=== PATIENT | female | born 1950 | race Caucasian/White ===

== ENCOUNTER 2017-01-09 07:22 | Inpatient (IN) | payer OTHER ==
[2017-01-09] VITALS (10 sets, daily range): BP systolic 143–220; BP diastolic 43–90
[~2017-01-09] VITALS: Ht 175.3 cm; Wt 104.4 kg
--- NOTE | ~2017-01-09 | PR ---
[place], [place] PROGRESS NOTE NAME: DESTINY MARADIAGA [facility] #: [id number] UNIT #: [id number] ROOM: [facility] DOCTOR: LADONNA MARIE,EFRAIN BIRTHDATE: [birth year] DOS: 01/11/2017 SUBJECTIVE: This patient is still intubated, but she is awake and sedation is off and she has responding appropriately and the plan is to extubate her today. She has not had any rhythm problem, blood pressure has been fine. OBJECTIVE: GENERAL: She is reasonably alert, moving her extremities. VITAL SIGNS: Pulse is 88 regular, blood pressure fine. NECK: JVP is normal. LUNGS: She has rhonchi and crackles in both lungs. EXTREMITIES: No edema of the lower extremities. IMPRESSION: The patient had respiratory failure precipitated by use of fentanyl atop of this patient has severe chronic obstructive pulmonary disease. She is turning around now and will be extubated. I do not see any clinical evidence of heart failure. I saw this patient on behalf of Dr. Enriquez. EFRAIN DOUGHERTY MD CM:PNTRANS [id number] EFRAIN DOUGHERTY MD 01/11/17 2304 interface
--- NOTE | ~2017-01-09 | PR ---
[place], [place] PROGRESS NOTE NAME: DESTINY MARADIAGA UNIT #: [id number] ROOM: 422 DOCTOR: ROGER JEROME MD BIRTHDATE: [birth year] DOS: 01/13/2017 PULMONARY PROGRESS NOTE SUBJECTIVE: She has been currently treated in the Telemetry Floor for this patient and transferred from the Intensive Care Unit. She has not been noted with any chest pain or any acute hemodynamic instability. The patient has been using the BiPAP at nighttime and intermittently during the day at times. She denies symptoms of chest pain or any abdominal pain. OBJECTIVE: VITAL SIGNS: Shows normal temperature, respiratory rate 20, heart rate 65, blood pressure 120/50. The pulse oxygen saturation on 3.5 L nasal cannula was 100% saturation. HEENT: Examination shows head was atraumatic. Eyes nonicterus. NECK: Supple. CARDIOVASCULAR SYSTEM: S1, S2 audible. LUNGS: Without any wheeze or crackles at this time. ABDOMEN: Soft, nontender and obese. EXTREMITIES: Shows chronic obesity. LABORATORY DATA: The patient's CMP this morning, glucose 245, BUN and creatinine were normal. CO2 of 37. CBC this morning for this patient was noted as normal. Chest x-ray done this morning was reviewed as well for this patient shows no acute pulmonary infiltration as well. IMPRESSION: 1. The patient with progressive resolution of acute hypercapnic and hypoxic respiratory failure, status post liberation from the mechanical ventilator as well. 2. Acute methicillin-susceptible Staphylococcus aureus pneumonia of the patient resolving clinically and radiologically. 3. Overall severe debility as well. 4. Metabolic alkalosis of the patient which has been resolving gradually. 5. Small left pleural fluid improving as well. 6. Past history of nicotine abuse. 7. Uncontrolled diabetes mellitus. PLAN OF TREATMENT: Continue the current plan of management of the patient, diuretics, bronchodilators, oxygen supplementation and the antibiotics. Continue use of the BiPAP as well. Usual care. All other supportive therapy, plan of management and treatments. [place], [place] PROGRESS NOTE NAME: DESTINY MARADIAGA UNIT #: [id number] ROOM: 422 DOCTOR: ROGER JEROME MD BIRTHDATE: [birth year] ROGER WILSON MD CM:PNISABEL [id number] ROGER SEGAL MD 01/16/17 0048 interface
--- NOTE | ~2017-01-09 | PR ---
[place], [place] PROGRESS NOTE NAME: DESTINY MARADIAGA [facility] #: [id number] UNIT #: [id number] ROOM: 422 DOCTOR: KATIE SEGAL MD,ROGER BIRTHDATE: [birth year] DOS: 01/12/2017 SUBJECTIVE: She has been successfully liberated from mechanical ventilator and has been ordered the BiPAP. She has been using the BiPAP after the liberation of mechanical ventilation and noted doing well with that. She has been noted awake and alert started on the oral liquid diet, which has been advanced to diabetic diet per Dr. Mary Ann Gilman this morning. She has been noted with mild cough without any sputum expectoration. Shortness of breath is improving. The mental status is noted as normal. OBJECTIVE: VITAL SIGNS: The patient showed a low-grade fever rectal noted yesterday 99.8 degrees Fahrenheit and later the patient was noted afebrile, respiratory rate of 14-18, heart rate of 76-58, blood pressure 170/70, patient noted to be at 145/55. The pulse oxygen saturation of the patient recorded as 97% on 4 liters nasal cannula with a BiPAP 97% saturation. HEENT: Chronic obesity. NECK: Supple. CARDIOVASCULAR: S1, S2 audible. LUNGS: The patient was noted without any wheezing or crackles at the present time. Breath sounds noted mild to moderately decreased bilaterally. ABDOMEN: Soft, nontender. EXTREMITIES: Shows chronic obesity. LABORATORY DATA: Culture of the endotracheal aspirate noted as light growth of Staph aureus. CBC of the patient was noted essentially normal today. CMP this morning was noted as glucose of 134, potassium 3.4. Total protein of 5.6, albumin 2.2. IMPRESSION: 1. The patient with status post liberation from mechanical ventilator for acute on chronic. The patient has acute hypercapnic and hypoxic respiratory failure. 2. Resolving chronic respiratory failure. 3. Acute exacerbation of chronic obstructive pulmonary disease, resolving. 4. Staphylococcus aureus pneumonia for the patient, noted methicillin-sensitive Staphylococcus aureus. 5. Bilateral small pleural effusions. 6. History of past nicotine dependence. 7. Metabolic alkalosis hypercarbia. 8. Uncontrolled diabetes mellitus. PLAN OF TREATMENT: The patient will be continued diabetic diet. Management of the uncontrolled hypertension has been already done by Dr. Mary Ann Gilman. Discontinuation of Levaquin and Zosyn and continue the patient's IV vancomycin or other alternative will be for the patient to give the Rocephin or other medications. Other supportive therapy, plan, and management to be continued. Supportive plan and management and other therapies. Usual care. ____. Physical therapy and occupation therapy would be beneficial. Continue the BiPAP of patient intermittently in the daytime and continue at nighttime. Diagnosis of sleep apnea disorder was suspected. [place], [place] PROGRESS NOTE NAME: [id number] UNIT #: [id number] ROOM: [facility] DOCTOR: ROGER JEROME MD BIRTHDATE: [birth year] ROGER WILSON MD CM:PNTRANS [phone] ROGER SEGAL MD 01/13/17 0929 interface
--- NOTE | ~2017-01-09 | CON ---
[place], [place] REPORT OF CONSULTATION NAME: DESTINY MARADIAGA [facility] #: [id number] UNIT #: [id number] ROOM: 422 DOCTOR: BREANNA HAM DPM BIRTHDATE: [birth year] DOS: 01/12/2017 SUBJECTIVE: The patient is a 66-year-old female. CHIEF COMPLAINT: Elongated painful thickened nails of both feet. PAST MEDICAL HISTORY: History of acute CHF, COPD, oxygen dependent with chronic respiratory failure, type 2 diabetes insulin-dependent, nicotine abuse, benign hypertension, generalized anxiety disorder, gastroesophageal reflux disease. SOCIAL HISTORY: History of smoking. PHYSICAL EXAMINATION: EXTREMITIES: Lower extremity examination: Diminished pedal pulses, both DP and PT bilateral foot. Decreased hair growth, nail thickening pigmentary discoloration. Decreased epicritic sensations, mild edema bilateral. Decreased skin temperature bilateral. Crumbly thickened yellow dystrophic nails 1 through 5 bilateral, subungual debris and mycotic odor bilateral foot. ASSESSMENT: Onychomycosis diabetes with peripheral vascular disease, peripheral neuropathy. PLAN: Evaluation and management. Debrided nails 1 through 5 bilateral. Thank you for the kind consultation. BREANNA HAM DPM CM:CONSTR:REPORT OF CONSULTATION 1207 01/12/178 interface
--- NOTE | ~2017-01-09 | PR ---
[place], [place] PROGRESS NOTE NAME: DESTINY MARADIAGA [facility] #: [id number] UNIT #: [id number] ROOM: [facility] DOCTOR: JT GUEVARA MD BIRTHDATE: [birth year] DOS: 01/12/2017 SUBJECTIVE: A 66-year-old apparently examined in the Intensive Care Unit. The patient with respiratory failure and severe hypertension. She is being extubated now. She is still coughing a lot and having shortness of breath. PHYSICAL EXAMINATION: VITAL SIGNS: Blood pressure is still elevated to be 170/50. She is in sinus rhythm. HEENT: Unremarkable. NECK: Supple, no JVD. LUNGS: Diminished air entry. HEART: Sounds are regular. ABDOMEN: Obese. NEUROLOGIC: Stable. LABORATORY DATA: Hemoglobin 12.4, hematocrit 38.1, potassium is 3.4, creatinine is 0.5. Chest x-ray done yesterday, improved aeration of the left base, endotracheal tube was removed. IMPRESSION: The patient with morbid obesity, respiratory failure, hypertension, persistent. RECOMMENDATION: Labetalol added to the current regimen. The patient has persistent hypertension, consideration should be given for a stress test, we will do it as an outpatient or at a later date when she is more stable respiratory braga and we will follow up. JT GUEVARA MD CM:PNTRANS 4 6 JT GUEVARA MD 01/12/17926 interface
--- NOTE | ~2017-01-09 | PR ---
[place], [place] PROGRESS NOTE NAME[id number] UNIT #: [id number] ROOM: [facility] DOCTOR: JR BRANDT MD BIRTHDATE: [birth year] DOS: 01/11/2017 The patient was extubated earlier. She states that she is not doing well on the BiPAP. She does try to communicate. PHYSICAL EXAMINATION: VITAL SIGNS: Blood pressure is 196/64, pulse of 98, respirations 18, temperature 99. LUNGS: Diminished breath sounds, very poor air entry. HEART: Regular. ABDOMEN: Obese. EXTREMITIES: Without any edema. LABORATORY DATA: Blood gas pO2 was 90 this morning. Sputum cultures shows light gram-positive cocci, no identification yet. Chest x-ray shows improved aeration. Blood culture shows no bacterial growth, and urine culture shows no bacterial growth. ASSESSMENT AND PLAN: 1. End-stage COPD with chronic respiratory failure with acute hypercapnic respiratory failure following intake of narcotics in the Emergency Room. The patient is extubated and is doing fairly well. 2. Mild congestive heart failure, possibly systolic. We will need to do a stress test when the patient is more stable. 3. Benign hypertension, controlled. 4. Type 2 diabetes mellitus, controlled, 192 this morning. JR BRANDT MD CM:PNTRANS 1430 6 JR BRANDT MD 01/12/17 0117 interface
--- NOTE | ~2017-01-09 | PR ---
[place], [place] PROGRESS NOTE NAME: DESTINY MARADIAGA UNIT #: [id number] ROOM: 422 DOCTOR: JR BRANDT MD BIRTHDATE: [birth year] DOS: 01/13/2017 SUBJECTIVE: The patient states that she feels good and is not having any new complaints. Her cough is still persistent, but is able to bring up some sputum. OBJECTIVE: VITAL SIGNS: Pressure is 120/50, pulse is 65, respirations 20, temperature 98.2. LUNGS: Diminished breath sounds, few scattered rhonchi and wheezes heard. HEART: Regular. ABDOMEN: Obese. EXTREMITIES: No edema. LABORATORY DATA: This morning, the Vieira catheter has been discontinued. Chest x-ray shows mild cardiomegaly. Labs this morning shows glucose of 245, BUN 9, creatinine 0.54, sodium 140, potassium 3.6, chloride 100, bicarbonate 37, calcium 7.8. WBC count is 7.2, hemoglobin 13.0. ASSESSMENT AND PLAN: 1. Acute exacerbation of chronic obstructive pulmonary disease, improving. 2. Acute hypercapnic respiratory failure, was on a ventilator, now off doing well. 3. Adult failure to thrive. The patient is getting physical therapy. Therapist feels that the patient can be discharged to home with home PT/OT. Social Service will be consulted for discharge planning. 4. Staph aureus of the sputum on vancomycin, which can be switched to p.o. Bactrim upon discharge. 5. Hypokalemia. Supplementation was given and is corrected. 6. Type 2 diabetes mellitus. Blood sugars are slightly on the high side, possible further adjustments in medications will be made. 7. Acute systolic CHF that is resolved. The Lasix has been made p.o. She will need to have a stress test done as an outpatient. 8. Benign hypertension, poorly controlled. Pressure is much better after further adjustments in meds. [place], [place] PROGRESS NOTE NAME: DESTINY MARADIAGA UNIT #: [id number] ROOM: 422 DOCTOR: JR BRANDT MD BIRTHDATE: [birth year] JR BRANDT MD CM:PNTRANS 0917 0000 JR BRANDT MD 01/14/17 0000 interface
--- NOTE | ~2017-01-09 | PR ---
[place], [place] PROGRESS NOTE NAME: DESTINY MARADIAGA UNIT #: [id number] ROOM: 422 DOCTOR: ROGER JEROME MD BIRTHDATE: [birth year] DOS: 01/16/2017 SUBJECTIVE: She has been noted comfortable, stated that she had not been feeling well from the respiratory standpoint. She has been doing very well with current medical management. Denies symptoms of chest pain, abdominal pain. The coughing has been subsiding gradually and improving. OBJECTIVE: VITAL SIGNS: For the patient which has been recorded shows the blood pressure noted 160/66, temperature was rather noted as normal, respiratory rate 16, heart rate 68. Oxygen saturation recorded as 99% saturation on 3 L nasal cannula. HEENT: Showed no new change. NECK: Supple and obese. CARDIOVASCULAR: S1, S2 is audible. LUNGS: The patient was noted without any wheezing or crackles at the present time. Breaths are noted mild to moderate decreased bilaterally. ABDOMEN: Soft and obese. EXTREMITIES: Shows obesity. LABORATORY DATA: CBC this morning essentially noted grossly normal. BMP this morning, glucose 226, remaining BMP grossly normal. One view chest x-ray ordered by Dr. Mary Ann Gilman was noticed with small right pleural fluid with resolving pulmonary infiltration. There were no findings of a significant acute congestive heart failure. IMPRESSION: 1. The patient has been resolving acute hypercapnic and hypoxic respiratory failure progressively. 2. Improving acute pneumonia with Staphylococcus aureus, methicillin-sensitive Staphylococcus aureus. 3. Chronic obesity. 4. Severe debility. 5. Small pleural fluid, which is not requiring any intervention at the present time. PLAN OF TREATMENT: Continue physical therapy, occupational therapy, diuretic with Lasix 40 mg daily that will result in resolution of the congestive heart failure and pleural fluids. Continuation of the other treatment plan of management and care. Supportive therapy, plan and management. [facility] facility transfer for this patient prior to final discharge in the home setting would be recommended. The patient was agreeable for that. [place], [place] PROGRESS NOTE NAME: DESTINY MARADIAGA UNIT #: [id number] ROOM: 422 DOCTOR: ROGER JEROME MD BIRTHDATE: [birth year] ROGER WILSON MD CM:BRAD 1126 6 ROGER SEGAL MD 01/17/17226 interface
--- NOTE | ~2017-01-09 | WRIGHTHP ---
[place], [place] PATIENT HISTORY AND PHYSICAL EXAM NAME: DESTINY MARADIAGA [facility] #: [id number] UNIT #: [id number] ROOM: [facility] DOCTOR: JR BRANDT MD BIRTHDATE: [birth year] DOS: 01/09/2017 HISTORY OF PRESENT ILLNESS: This patient is [id number], not known to me. The patient comes in to the Emergency Room with complaints of chest pain and shortness of breath. The patient was seen in the ER, had x-rays and EKG, which did not show any abnormalities. Lab work was normal. She was admitted with diagnosis of chest pain. She was admitted to the fifth floor. While there, she became obtunded and unresponsive and rapid response was called. Narcan was given to reverse the situation and she was transferred to the ICU. En route we found out that the patient did receive 50 mcg fentanyl x2 while in the ER for what appears to be chest pain. The patient once transferred to the ICU, was found to be hypercapnic with acidosis and patient was promptly intubated. Right now the patient is on a ventilator and does not respond to call or noxious stimuli. She is heavily sedated. PAST MEDICAL HISTORY: Significant for; 1. Recent hospitalization in 08/2016 with acute CHF. Patient has LV dysfunction with an ejection fraction of 40%-45%, did not undergo a stress test or cardiac catheterization. 2. COPD oxygen dependent with chronic respiratory failure. 3. Type 2 diabetes mellitus, insulin-dependent. 4. Continued nicotine abuse. 5. Benign hypertension. 6. Generalized anxiety disorder. 7. Gastroesophageal reflux disease. MEDICATIONS: We do have a list of medicines, but we are not exactly sure whether these medicines are correct. The pharmacy has not been called yet. Her medications that reported by the family was Anoro Ellipta daily, Dulera 100 twice a day, fluticasone nasal spray, Vicodin 7.5 q. 8 p.r.n., alendronate 70 once weekly, amlodipine 5 daily, atorvastatin 20 daily, Bumex 1 mg b.i.d., calcium 500 twice a day, Coreg 25 mg twice a day, vitamin D 1000 units weekly, Plavix 75 daily, Flexeril 10 q. 8, Colace 100 daily, Lexapro 20 b.i.d., fenofibrate 160 daily, Zestril 40 daily, lorazepam 1 mg q. 6 p.r.n., multivitamin 1 tablet daily, Prilosec 20 daily, potassium 25 mEq daily, insulin 70/30 15 units twice a day. SOCIAL HISTORY: She is a smoker, I am not exactly sure how much she smokes, but her fingernails are heavily stained with nicotine. PHYSICAL EXAMINATION: GENERAL: The patient again is heavily sedated. VITAL SIGNS: Blood pressure is 179/84, pulse of 80, respirations 16, temperature 98.5. LUNGS: Diminished breath sounds, scattered wheezes and rhonchi. HEART: Bradycardic and a heart rate in the low 60s. ABDOMEN: Obese, soft. EXTREMITIES: Without any edema. Yeast infection noticed on the umbilical area as well as intertriginous areas of the groin. [place], [place] PATIENT HISTORY AND PHYSICAL EXAM NAME: DESTINY MARADIAGA UNIT #: [id number] ROOM: [facility] DOCTOR: JR BRANDT MD BIRTHDATE: [birth year] ASSESSMENT AND PLAN: 1. Acute hypercapnic respiratory failure. The patient is intubated. Sedation has been ordered. Consultation Dr. Subramanian will start her on DuoNeb. 2. CT of the chest shows pneumonia with pleural effusions. IV antibiotics have been ordered. Blood cultures will be sent. 3. Chronic obstructive pulmonary disease with chronic respiratory failure, oxygen dependent, on multiple inhalers, which will be restarted and the patient is more stable. 4. Benign hypertension. Restart lisinopril; hold off Coreg because of bradycardia. 5. LV dysfunction with acute systolic CHF. IV diuretics have been added. The patient will need further evaluation as regards to why the patient has LV dysfunction. She is a smoker and has underlying risk factors and may have coronary artery disease. JR BRANDT MD CM:HISPHYS:PATIENT HISTORY AND PHYSICAL EXAMINATION 1432 1450 JR BRANDT MD 01/09/17 9078 interface
--- NOTE | ~2017-01-09 | PR ---
[place], [place] PROGRESS NOTE NAME: DESTINY MARADIAGA [facility] #: [id number] UNIT #: [id number] ROOM: 422 DOCTOR: JR BRANDT MD BIRTHDATE: [birth year] DOS: 01/18/2017 SUBJECTIVE: The patient for some reason did not receive the Demerol that was ordered yesterday. OBJECTIVE: VITAL SIGNS: Graphic trend shows a pressure 130/50, pulse is 67, respirations 20, temperature 97.5. LUNGS: Diminished breath sounds, clear. HEART: Regular. ABDOMEN: Obese. EXTREMITIES: Without any edema. ASSESSMENT: 1. The patient with severe end-stage oxygen dependent chronic obstructive pulmonary disease, stable. 2. Staphylococcus aureus pneumonia for which the patient has received antibiotics. Chest x-ray last one was done on the 01/16/2017, which only showed trace pleural effusion. 3. Cardiomyopathy with a negative stress test without any reversible perfusion defects. 4. Failure to thrive, placement to [facility]. 5. Right suppurative otitis media on antibiotics seen by Dr. Conteh. 6. Hypercapnic respiratory failure, status post ventilator. PLAN: This patient is 66 years old. She came in with complaints of chest pain to the Emergency Room and shortness of breath. She was found to have acute exacerbation of COPD, was admitted. After admission, she had received 2 doses of fentanyl in the ER, she became increasingly somnolent and lethargic and unresponsive and was transferred to the ICU, was found to have hypercapnic respiratory failure, and she was intubated. After intubation, the patient was placed on IV antibiotics, steroids, breathing treatments, oxygen supplementation as well as consultation with Pulmonary was obtained with Dr. Subramanian. Blood cultures and urine cultures were performed. They have all come back negative. Chest x-ray showed some mild congestive heart failure. The patient was given diuretics and Cardiology consultation was obtained. Dr. Enriquez suggested to have a stress test when the patient become more stable. Echocardiogram showed some improvement in the ejection fraction compared to the last admission. Once her lung functions have improved, she was taken off the ventilator and transferred to [facility]. She did complain of right ear pain and was placed on Augmentin because of her right otitis media. Consultation with Dr. Conteh was obtained. Also, he agreed on the treatment plan. The patient continues to complain of pain in the ER, may require ostomies as an outpatient for her right ear infection with some minimal fluid behind the ear drum. A chest x-ray shows complete resolution of the congestive heart failure. is fairly within normal limits now, and she is back at her baseline, so the plan therefore is to discharge her to [facility]. DISCHARGE MEDICATIONS: Will be Augmentin 875 twice daily for 7 days. DuoNeb q.6 hours, Plavix 75 daily, atorvastatin 40 mg daily, carvedilol 25 mg twice a [place], [place] PROGRESS NOTE NAME: DESTINY MARADIAGA UNIT #: [id number] ROOM: 422 DOCTOR: JR BRANDT MD BIRTHDATE: [birth year] day, lisinopril 40 daily, [place] 7.5/325 q.6 hours p.r.n., Lexapro 10 daily, oyster calcium one capsule daily, potassium 10 daily, Lasix 40 daily, Colace 100 mg daily, Prilosec 20 mg daily, insulin 70/30 25 units b.i.d., vitamin D 1000 units daily, alendronate 70 once weekly, multivitamin one tablet daily and tapering dose of prednisone. Please make sure that the patient is seen by Dr. Conteh and Dr. Subramanian as an outpatient. JR BRANDT MD CM:BRAD 0910 1017 JR BRANDT MD 01/18/17 1017 interface
--- NOTE | ~2017-01-09 | ST ---
[place], [place] EXERCISE STRESS TEST REPORT NAME: DESTINY MARADIAGA [facility] #: [id number] UNIT #: [id number] ROOM: 422 DOCTOR: JR BRANDT MD BIRTHDATE: [birth year] DOS: 01/17/2017 LEXISCAN STRESS TEST REASON FOR TESTING: Evaluation of LV dysfunction and wall motion abnormalities. DESCRIPTION: After explaining the procedure and obtaining consent, the patient was subjected to 0.4 mg of Lexiscan. Resting heart rate was 66 with a blood pressure of 148/54. EKG showed sinus, nonspecific ST-T wave changes in the inferior leads. The patient did complain of some minimal shortness of breath during the infusion. No arrhythmias or ST-T wave changes were seen during the infusion. After the infusion was over, the patient was injected with Cardiolite and stress images were taken. ASSESSMENT AND PLAN: Lexiscan stress test without any ST-T wave changes or arrhythmias. Cardiolite images pending. JR BRANDT MD CM:STRESS:EXERCISE STRESS TEST REPORT [id number] JR BRANDT MD
--- NOTE | ~2017-01-09 | CON ---
[place], [place] REPORT OF CONSULTATION NAME: DESTINY MARADIAGA UNIT #: [id number] ROOM: [facility] DOCTOR: KATIE SEGAL MD,ROGER BIRTHDATE: [birth year] DOS: 01/10/2017 PULMONARY CRITICAL CARE EVALUATION AND MANAGEMENT CONSULTATION REQUESTED: For patient by Dr. Mary Ann Gilman. REASON FOR CONSULTATION: To assess the patient for acute progressive respiratory failure. HISTORY OF PRESENT ILLNESS: This is a 66 years old female who has been brought to the hospital on 01/09/2017 and subsequently admitted to the Intensive Care Unit. She has been reported symptoms of having shortness of breath, which has been progressive for the past couple of days and worsened significantly in the morning prior to admission to the hospital. Shortness of breath for this patient was also associated with symptoms of chest pain. The details were unknown with mild cough and back pain. The patient's daughter stated the patient was in the Emergency Room for the patient. The patient was feeling normal prior to that. The patient has been admitted to the hospital in the intensive care unit, developed progressive acute respiratory failure requiring intubation and mechanical ventilation, which was started yesterday successfully. The history had been obtained for patient essentially, review of documentation medical records for the patient by the current physician on this hospitalization and from the nurse's notes. REVIEW OF SYSTEMS: Could not be completed since the patient already intubated and noted on mechanical ventilation. PAST MEDICAL HISTORY: Noted for the patient is: 1. General anxiety disorder. 2. Centrilobular emphysema. 3. Type 2 diabetes mellitus. 4. Essential hypertension. 5. Gastroesophageal reflux. 6. Coronary artery disease. 7. Chronic hypoxic respiratory failure, use of oxygen. 8. History of nicotine dependence. 9. History of congestive heart failure with systolic dysfunction for the patient with ejection fraction 40-45%. PAST SURGICAL HISTORY: For this patient was noted as, 1. Sinus surgery. 2. Tubal ligation. 3. Left hip replacement. 4. Coronary artery bypass grafting. 5. Cardiac catheterization and coronary stents insertion. 6. Cholecystectomy. 7. Tubal ligation. SOCIAL HISTORY: The patient was living at home prior to admission to the hospital. She had been reported with history of tobacco use. The patient's [place], [place] REPORT OF CONSULTATION NAME: DESTINY MARADIAGA UNIT #: [id number] ROOM: [facility] DOCTOR: KATIE SEGAL MD,ROGER BIRTHDATE: [birth year] quantity or duration was unknown. FAMILY HISTORY: The patient's father with complication related to hypertension. Mother from complication related to heart problems with history of hypertension as well. MEDICATIONS: Current administered medications noted as use of lisinopril, Coreg, amlodipine, Plavix, IV Lasix 20 mg, clonidine patch for this patient 0.3 mg, DuoNeb, IV Zosyn, Levaquin, IV Versed and Diprivan. The Versed was given 5 mg q. 1 hour p.r.n. for additional sedation. DRUG ALLERGIES: NOTED ALLERGY TO THE MORPHINE SULFATE CAUSING HALLUCINATIONS. PHYSICAL EXAMINATION: GENERAL: A 66 years old female who has been currently intubated on mechanical ventilation, adequately sedated. VITAL SIGNS: Height of 5 feet 9 inches, weight of 237 pounds, BMI 35. The vital signs of the patient, which have been recorded shows a normal temperature noted. The respiratory 24-12, heart rate 68-73, blood pressure 153/40-115/55. A pulse oxygen saturation of the patient recorded on assist controlled mode of mechanical ventilation, tidal volume 650 mL, PEEP of 7.0, 50% oxygen saturation noted and 99% saturation. Previously on Venturi mask for the patient the saturation noted 88%. HEENT: The patient is orally intubated, orogastric tube has been inserted. NECK: Supple and obese. Head was atraumatic. Eyes nonicterus. CARDIOVASCULAR SYSTEM: S1, S2 audible. LUNGS: Noted moderate decreased breath sounds, scattered wheezing, occasional crackles. ABDOMEN: Soft, obese, bowel sounds present. EXTREMITIES: Shows no edema, clubbing or cyanosis. SKIN: Showed no lesions or rashes. MUSCULOSKELETAL SYMPTOMS: No deformities. SKIN: Visible does not show any lesions. LABORATORY DATA: CBC of the patient of 01/09/2017 for the patient was noted WBC count 9.9, hemoglobin 15, hematocrit 47.4, platelet count was normal. Lactic acid noted 0 of the patient yesterday on admission. PT/PTT for the patient was noted as normal 01/10/2016. The CMP of the patient on 01/09/2017, glucose 284, BUN 13, creatinine was normal, carbon dioxide 33. CK-MB, troponin first set was normal. Arterial blood gas pH of 7.16, pCO2 of 90.8, pO2 of 69.6 with the BiPAP. Arterial blood gases of the patient post-intubation on mechanical ventilation, 50% oxygen, pH of 7.24, pCO2 of 49.6, pO2 of 74.9. The CK-MB and troponin repeated again was normal this morning. CBC this morning remains normal. Arterial blood gas this morning on 50% oxygen, pH of 7.49, pCO2 of 42.7, pO2 of 67.1 on 50% oxygen. The BMP of the patient this morning, glucose 279, BUN and creatinine were normal, remaining electrolytes normal. Urine cultures shows no bacterial growth. CTA of the chest for the patient was done yesterday, ordered by Dr. Mary Ann Gilman, for the patient it was noted there was no evidence of pulmonary embolism, small bilateral pleural fluid noted greater on the right than the left side, partial loculation. The basilar area of [place], [place] REPORT OF CONSULTATION NAME: DESTINY MARADIAGA UNIT #: [id number] ROOM: [facility] DOCTOR: KATIE SEGAL MD,ROGER BIRTHDATE: [birth year] infiltration of the patient was noted/atelectasis as well. Nonspecific mild lymphadenopathy noted in the mediastinum as well. IMPRESSION: 1. The patient who has been currently noted with acute progressive hypercapnic and hypoxic respiratory failure. 2. History of chronic hypoxic respiratory failure as a result of acute exacerbation of chronic obstructive pulmonary disease. 3. Basilar area of atelectasis, less infiltration secondary to possibility of aspiration pneumonia. 4. Small pleural fluid for the patient most likely resulting from the acute bacterial pneumonia with superimposed congestive heart failure with systolic dysfunction of the patient would be considered as well. 5. Chronic obesity. 6. History of chronic nicotine dependence. 7. Metabolic alkalosis secondary to chronic hypercarbia. 8. Uncontrolled diabetes, most likely related to underlying acute illness as well. PLAN OF TREATMENT: The patient's ventilator bundle management has been initiated. The ____ arrangements for this patient has been ordered. The bronchodilators for the patient will be given for the patient every 4 hours. Endotracheal aspirate cultures as well. Nutritional support for the patient has been started. DVT prophylaxis of the patient will be continued. Pleural fluid will be monitored at this time. The fluid noted small at this time, would not require any thoracentesis immediately. Monitoring to be continued. DVT prophylaxis for the patient has been ordered. Supportive care, plan of management and usual treatments. Thanks for allowing me to participate in the care of this patient. Monitoring blood cultures as well. Total time pulmonary critical care evaluation and management for the patient today is 40 minutes. ROGER WILSON MD CM:CONSTR:REPORT OF CONSULTATION 1235 01/11/17 0709 interface
--- NOTE | ~2017-01-09 | CON ---
[place], [place] REPORT OF CONSULTATION NAME: DESTINY MARADIAGA [facility] [id number] UNIT #: [id number] ROOM: [facility] DOCTOR: EFRAIN DOUGHERTY MD BIRTHDATE: [birth year] DOS: 01/09/2017 HISTORY OF PRESENT ILLNESS: This is a 66-year-old -[place] woman with a history of coronary artery disease, 10 years ago she had a left heart catheterization which demonstrated 50% stenosis in the right coronary artery and EF at that time was 45% and an echocardiogram last year demonstrated an EF of 45%. She was admitted to the hospital because of chest pain and shortness of breath. In the Emergency Department, she had received 100 mg of fentanyl and she became unresponsive and hypoventilating. CO2 was rather high. She was given 3 doses of Narcan with some response, but she required endotracheal intubation and ventilator support. She is now sedated and remains on the ventilator. I do not have the details of chest pain. She had been admitted to the hospital about 4 months ago with acute heart failure. She has COPD that is quite significant, requiring oxygen at all times. Type 2 diabetes mellitus, essential hypertension and anxiety disorder and GERD. The patient now has blood pressure that has been difficult to control. She has been on some of her home medication, also is on clonidine patch. PHYSICAL EXAMINATION: VITAL SIGNS: Pulse is irregular at 80 beats per minute, blood pressure is 220/80, previous blood pressures have been much lower. There is no carotid bruit. NECK: JVP is normal. HEART: Auscultation reveals no murmurs or rubs. EXTREMITIES: She has no edema of lower extremities. Pedal pulses are little difficult to palpate. LUNGS: Sound fairly clear. She has a few rhonchi on the left side. LABORATORY DATA: Troponin I level is 0.032, which is normal. Hemoglobin 15 grams, glucose was high, BUN 13, creatinine 0.83. ECGs have shown normal sinus rhythm with a normal pattern, unchanged from previous ECG. IMPRESSION: This patient had chest pain, details of which are not clear, but she has ruled out for acute myocardial infarction. Once she is extubated and is ambulated, I think it may be prudent to perform a Lexiscan Cardiolite study. She has respiratory failure, which was worsened by use of narcotic. She is on the ventilator now and hemodynamically is stable. I thank you on behalf of Dr. Guevara for this consult. [place], [place] REPORT OF CONSULTATION NAME: DESTINY MARADIAGA UNIT #: [id number] ROOM: [facility] DOCTOR: EFRAIN DOUGHERTY MD BIRTHDATE: [birth year] EFRAIN DOUGHERTY MD CM:CONSTR:REPORT OF CONSULTATION 22 01/10/17 0719 interface JT GUEVARA MD and JR BRANDT MD
--- NOTE | ~2017-01-09 | PR ---
[place], [place] PROGRESS NOTE NAME: [facility]ST[facility]ADIAGA [facility] [id number] UNIT #: [id number] ROOM: 422 DOCTOR: JT GUEVARA MD BIRTHDATE: [birth year] DOS: 01/17/2017 SUBJECTIVE: 24-hour events noted. Discussed with the nursing staff. Hemodynamically stable. OBJECTIVE: VITAL SIGNS: Blood pressure is 150/70, heart rate is about 72. NECK: Supple, no JVD. LUNGS: Diminished breath sounds. The patient is negative 2 liters. ABDOMEN: Soft, nontender. NEUROLOGIC: Neurologically much more improved. Dr. Subramanian also following the patient. LABORATORY DATA: Reviewed. Hemoglobin 12.9 and hematocrit 40.3. Electrolytes are normal. Creatinine is normal. I do not think the patient is in heart failure at this point. IMPRESSION: Pneumonia with Staphylococcus aureus, failure to thrive, acute systolic congestive heart failure with left ventricular dysfunction. Benign hypertension, controlled. Chronic obstructive pulmonary disease exacerbation. PLAN: Continue the present care. We will review the stress test that will be done by Dr. Mary Ann Gilman today and we will follow up. JT GUEVARA MD CM:PNTRANS [id number] [id number] JT GUEVARA MD 01/17/17 1355 interface
--- NOTE | ~2017-01-09 | PR ---
[place], [place] PROGRESS NOTE NAME: [facility]A [facility] [id number] UNIT #: [id number] ROOM: 422 DOCTOR: JR BRANDT MD BIRTHDATE: [birth year] DOS: 01/14/2017 SUBJECTIVE: The patient is doing fine without any complaints other than some minimal diarrhea. OBJECTIVE: VITAL SIGNS: Graphic trend shows a pressure of 164/72, pulse is 64, respirations 21, temperature 97.2. LUNGS: Diminished breath sounds. No wheezes heard. HEART: Regular. ABDOMEN: Soft. EXTREMITIES: Without any edema. ASSESSMENT AND PLAN: 1. Acute hypercapnic respiratory failure, status post intubation, now extubated. 2. Staphylococcus aureus methicillin sensitive on the sputum, on IV antibiotics. 3. Heavy nicotine abuse. The patient is advised against it. 4. Adult failure to thrive. PT feels that the patient can be discharged to home with therapy, does not need SNF placement. 5. Benign hypertension, much better controlled. Plan is to discharge her to home tomorrow. 6. Acute systolic congestive heart failure, which is also resolved on medications, will need a stress as an outpatient. JR BRANDT MD CM:PNTRANS 1426 JR BRANDT MD 01/14/17 1426 interface
--- NOTE | ~2017-01-09 | PR ---
[place], [place] PROGRESS NOTE NAME: DESTINY MARADIAGA [facility] #: [id number] UNIT #: [id number] ROOM: 422 DOCTOR: JR BRANDT MD BIRTHDATE: [birth year] DOS: 01/17/2017 SUBJECTIVE: The patient continues to complain of right ear pain. OBJECTIVE: GENERAL: She is awake and alert and oriented. VITAL SIGNS: Blood pressure is 170/54, pulse of 74, respirations 20, temperature 98.0. LUNGS: Diminished breath sounds. HEART: Regular. ABDOMEN: Obese, soft, nontender. EXTREMITIES: Without any edema. ASSESSMENT AND PLAN: 1. Acute ____ hypercapnic respiratory failure, which is resolved. The patient is only getting breathing treatments as needed, so we will change that ____ straight order. 2. Panacinar emphysema, end-stage oxygen dependent, without any exacerbations right now. 3. Right suppurative otitis media. We will get ____ consult since the patient is still having complaints and requested a pain medication just for one time, so one dose of Vicodin will be given today. 4. Benign hypertension, further adjustments in medication to be made. 5. Adult failure to thrive, to go to [facility] tomorrow. JR BRANDT MD CM:PNTRANS [id number] JR BRANDT MD 01/17/17 2322 interface
--- NOTE | ~2017-01-09 | PR ---
[place], [place] PROGRESS NOTE NAME: [id number] UNIT #: [id number] ROOM: 422 DOCTOR: ROGER JEROME MD BIRTHDATE: [birth year] DOS: 01/17/2017 PULMONARY PROGRESS NOTE SUBJECTIVE: The patient seen and examined on 01/17/2017. She has been noted with continued reduction and improvement in the respiratory complaints with the patient's current medical treatment. She has been undergoing cardiac stress testing for this patient with the Lexiscan. OBJECTIVE: VITAL SIGNS: Showed normal temperature, respiratory rate 20, heart rate 74, blood pressure 150/74-151/52. Pulse oxygen saturation recorded on 3 liters nasal cannula of the patient was noted as 98% saturation. HEENT: Moderate obesity. NECK: Supple. CARDIOVASCULAR SYSTEM: S1, S2 audible. LUNGS: Without any wheeze or crackles. ABDOMEN: Soft, nontender. LABORATORY DATA: CBC this morning was noted normal. BMP this morning noted glucose 284, carbon dioxide 39. IMPRESSION: 1. The patient has been noted with continued gradual reduction and improvement in the respiratory status. The patient was noted with acute on chronic hypercapnic hypoxic respiratory failure as well as improving pneumonia. 2. The patient with acute exacerbation of chronic obstructive pulmonary disease as well. 3. Suspected obstructive sleep apnea disorder. PLAN OF TREATMENT: No changes in plan of management, continuation of the bronchodilators, oxygen supplementation and further cardiac workup as in progress. Usual care. Supportive therapy, plan of management and other treatments. [place], [place] PROGRESS NOTE NAME: DESTINY MARADIAGA [facility]: [id number] UNIT #: [id number] ROOM: 422 DOCTOR: ROGER JEROME MD BIRTHDATE: [birth year] ROGER WILSON MD CM:BRAD [id number] ROGER SEGAL MD 01/17/17 1877 interface
--- NOTE | ~2017-01-09 | PR ---
[place], [place] PROGRESS NOTE NAME: [id number] UNIT #: [id number] ROOM: 422 DOCTOR: JR BRANDT MD BIRTHDATE: [birth year] DOS: 01/15/2017 SUBJECTIVE: The patient is doing fine without any complaints other than continued complaints of ear pain that started during the night, the nursing staff did call saying she was having a lot of ear pain and headache. One dose of Toradol was given that seems to help with her headaches. She denies having any chest pains or palpitations, does not have any fever or chills. PHYSICAL EXAMINATION: VITAL SIGNS: Graphic trend shows a pressure of 179/62, pulse of 76, respirations 18, temperature 98.0. LUNGS: Diminished breath sounds. No wheezes heard today. HEART: Regular. ABDOMEN: Obese. EXTREMITIES: Without any edema. EARS: Right ear shows definite evidence of suppurative otitis media. ASSESSMENT AND PLAN: 1. Earache with acute suppurative or right otitis media for which she will be started on Augmentin. 2. Pneumonia with Staphylococcus aureus, on IV vancomycin. 3. Hypoxic hypercapnic respiratory failure, off the ventilator for Adult failure to thrive. I did suggest that she go to rehab. She is considering it. 4. Major depression, single episode. The patient has been on Lexapro in the past. It is not on the list of medications, we will restart it at 10 mg. JR BRANDT MD CM:PNTRANS 1020 24 JR BRANDT MD 01/15/171923 interface
--- NOTE | ~2017-01-09 | CON ---
[place], [place] REPORT OF CONSULTATION NAME: DESTINY MARADIAGA UNIT #: [id number] ROOM: 422 DOCTOR: KRISTIE PHILLIPS MD BIRTHDATE: [birth year] DOS: 01/17/2017 ADMITTING PHYSICIAN: Conrad Layne DO. REASON FOR CONSULTATION: Right ear pain. HISTORY OF PRESENT ILLNESS: The patient is a 66-year-old female who presented to the Emergency Department on January 09, 2017, with complaints of shortness of breath. She had some chest discomfort and mild coughing. She has a history of COPD and congestive heart failure. The patient has developed right-sided ear pain and was started on Augmentin. ENT was consulted because of the ear condition. PAST MEDICAL HISTORY: Acute on chronic respiratory failure, history of congestive heart failure, COPD, depression, type 2 diabetes mellitus, essential hypertension, GERD, history of [place], oxygen dependent, tobacco abuse, anxiety. PAST SURGICAL HISTORY: Cholecystectomy, tubal ligation, sinus surgery, left hip repair and coronary artery bypass surgery. CURRENT MEDICATIONS: Albuterol, Demerol, vancomycin, Lexiscan, Lexapro, Lasix, Augmentin, Protonix, insulin, potassium, Zestril, labetalol, Norvasc, clonidine, nystatin and albuterol. ALLERGIES: MORPHINE. PHYSICAL EXAMINATION: GENERAL: The patient was examined at the bedside. She is awake, alert and oriented. VITAL SIGNS: Temperature 98 oral, pulse 68, respiratory rate 20, blood pressure 170/50. HEENT: Examination of the ears shows evidence of retraction of the right TM with otitis media. There is mild retraction of the left TM. Nasal exam shows patient is receiving oxygen via nasal prong. No intranasal mucopurulence or polyps. The oral cavity and oropharynx is unremarkable. NECK: Supple. IMPRESSION: Right otitis media. RECOMMENDATION: Continue treatment with Augmentin. The patient has agreed to follow up after discharge with ENT for reassessment. Thank you for this consultation. [place], [place] REPORT OF CONSULTATION NAME: DESTINY MARADIAGA UNIT #: [id number] ROOM: 422 DOCTOR: KRISTIE PHILLIPS MD BIRTHDATE: [birth year] KRISTIE PHILLIPS MD CM:CONSTR:REPORT OF CONSULTATION 1308 01/17/17 1339 interface
--- NOTE | ~2017-01-09 | PR ---
[place], [place] PROGRESS NOTE NAME: DESTINY MARADIAGA [facility] #: [id number] UNIT #: [id number] ROOM: [facility] DOCTOR: JT GUEVARA MD BIRTHDATE: [birth year] DOS: 01/10/2017 SUBJECTIVE: Twenty four hour events noted. The patient examined in the Intensive Care Unit. The patient was seen by Dr. Gtz yesterday for me as a consultation. Patient continues to be intubated. She is still on the long doses of Ativan. The ejection fraction was 45%. Chest x-ray showed mild pleural effusion and a CTA also showed no evidence of pulmonary embolism. The patient continues to be in sinus rhythm. Troponin is normal. EKG shows normal sinus rhythm with normal pattern, which is unchanged from before. PHYSICAL EXAMINATION: VITAL SIGNS: Blood pressure today is 140/80. She is in sinus rhythm. NECK: Supple, elevated JVD. LUNGS: Diminished breath sounds. HEART: Sounds are regular. ABDOMEN: Obese, soft, nontender. NEUROLOGIC: Moving the extremities, but she is sedated. REVIEW OF SYSTEMS: Unobtainable because of current critical situation. Fluid balance is negative at 660. LABORATORY DATA: Shows hemoglobin 13.7, hematocrit 37.6. Electrolytes are normal. Creatinine is normal. Troponins have been negative. IMPRESSION: Acute respiratory failure, chronic obstructive pulmonary disease, oxygen-dependent. Mild left ventricular dysfunction, history of nicotine abuse, hypertension, anxiety disorder, gastroesophageal reflux disease. PLAN: Continue the present medications, which includes Plavix, Coreg, fenofibrate, Zestril, respiratory toilet and probable extubation if feasible as per the Pulmonary and we will follow up. JT GUEVARA MD CM:PNTRANS [id number] [id number] JT GUEVARA MD 01/11/17 0138 interface
--- NOTE | ~2017-01-09 | PR ---
[place], [place] PROGRESS NOTE NAME: DESTINY MARADIAGA [facility] #: [id number] UNIT #: [id number] ROOM: 422 DOCTOR: KATIE SEGAL MD,ROGER BIRTHDATE: [birth year] DOS: 01/19/2017 PULMONARY PROGRESS NOTE SUBJECTIVE: She was still waiting for authorization and transfer to the intermediate facility. She has been showing gradual reduction and improvement in the respiratory complaints. Denies symptoms of chest pain. Denies any acute abdominal pain. Physical therapy of the patient was continued. OBJECTIVE: VITAL SIGNS: For the patient which has been recorded showed the temperature of the patient noted as normal. The respiratory rate of the patient recorded as 20, heart rate of 62, blood pressure 130/52. The pulse oxygen saturation on nasal cannula supplementation for the patient was maintained as oxygen saturation of 98% on 3 L nasal cannula. HEENT: Examination shows head was atraumatic. Examination shows no acute abnormality. Chronic obesity was noted. CARDIOVASCULAR: S1, S2 is audible. LUNGS: The patient was noted without any wheezing or crackles at the present time. ABDOMEN: Soft, nontender. LABORATORY DATA: Vancomycin trough level noted at 14.0. IMPRESSION: The patient with progressive resolution was noted at this time for the acute respiratory failure, acute pneumonia, improving debility progressively. PLAN OF TREATMENT: No changes in the plan and management at this time otherwise will be necessary. Continue other supportive therapy, plan of management and treatment. Usual care. ROGER WILSON MD CM:PNTRANS 1206 [id number] ROGER SEGAL MD 01/20/17 0514 interface
--- NOTE | ~2017-01-09 | PR ---
[place], [place] PROGRESS NOTE NAME: [id number] UNIT #: [id number] ROOM: 422 DOCTOR: EFRAIN DOUGHERTY MD BIRTHDATE: [birth year] DOS: 01/18/2017 SUBJECTIVE: This patient remains reasonably short of breath. She has some wheezing and little cough. She has not had any chest pain or palpitations. She is eating fine and has ambulated only in the room so far. Her mood seems to be fairly decent. PHYSICAL EXAMINATION: GENERAL: This is a patient who is morbidly obese, alert, oriented. She has oxygen on and still is mildly tachypneic. VITAL SIGNS: Pulse is regular at 66, blood pressure 152/50. Systolic blood pressure has been between 150 and 170. NECK: JVP is normal. AJR is negative. CARDIOVASCULAR: Auscultation reveals regular heart rate. No murmurs, no edema at all in the lower extremities. RESPIRATORY SYSTEM: She is tachypneic. Her percussion note is normal and auscultation reveals modestly diminished breath sounds with adventitious sounds in both lungs. IMPRESSION: 1. Hypertension. This probably needs better controlled if the blood pressure stays high as mentioned above. 2. Chronic obstructive pulmonary disease is being addressed. There is no evidence of cardiac decompensation. No new recommendations are offered at this time. EFRAIN DOUGHERTY MD CM:PNTRANS [id number] EFRAIN DOUGHERTY MD 01/19/17 0508 interface
--- NOTE | ~2017-01-09 | PROC NOTE ---
[place], [place] PROCEDURE NOTE NAME: DESTINY MARADIAGA UNIT #: [id number] ROOM: [facility]- DOCTOR: PATRICIO RODRIGUEZ CRNA BIRTHDATE: [birth year] DOS: 01/09/2017 PROCEDURE PERFORMED: Intubation for respiratory failure. The patient was treated in the ER earlier today for chest pain, acute congestive heart failure. She was sent to the floor where she was subject of a rapid response team. She was transferred to the ICU after receiving Narcan and placed on BiPAP. On the BiPAP, blood gases pH 7.162, CO2 98.8, pO2 69.6, bicarb 35.6, base excess of 1.7. The patient in respiratory failure. The patient on the BiPAP had a SaO2 of 97%. However, on my arrival, she was severely obtunded and unresponsive to painful stimuli. The patient initially attempted intubation without sedation, but she did become responsive, sedated with propofol 100 mg, succinylcholine 100 mg. The patient intubated without difficulty with a blade and using an 8.0 mm ET tube with good visualization. Positive end tidal CO2. Positive bilateral breath sounds. O2 sat going on 99% on 100% O2, placed on ventilator settings per her physician. Total time 15 minutes. PATRICIO RODRIGUEZ CRNA CM:PROCNOTE:PROCEDURE NOTE [id number] PATRICIO RODRIGUEZ CRNA
--- NOTE | ~2017-01-09 | PR ---
[place], [place] PROGRESS NOTE NAME: DESTINY MARADIAGA [facility] #: [id number] UNIT #: [id number] ROOM: 422 DOCTOR: EFRAIN DOUGHERTY MD BIRTHDATE: [birth year] DOS: 01/16/2017 SUBJECTIVE: This patient is now moving a little bit in the room. She still has oxygen on. She has some cough with very little expectoration. No chest pain or palpitations. She just feels tired. She clearly feels much better than when she was moved out of the ICU. PHYSICAL EXAMINATION: VITAL SIGNS: Temperature is normal. Pulse is 72 and regular, blood pressure 187/62. Blood pressure has been persistently elevated. NECK: JVP is normal. CHEST: She has reduced breath sounds with some adventitious sounds bilaterally. EXTREMITIES: No edema in her lower extremities. LABORATORY DATA: BUN is , creatinine 0.63. Hemoglobin 12.7 mg/dL. IMPRESSION: Acute respiratory failure due to medications upon admission. She has recovered from that and now chronic obstructive pulmonary disease being addressed by Dr. Reese. There is no evidence of heart failure at this time. I saw this patient on behalf of . . EFRAIN DOUGHERTY MD CM:PNTRANS [phone] EFRAIN DOUGHERTY MD 01/17/17 0641 interface
--- NOTE | ~2017-01-09 | PR ---
[place], [place] PROGRESS NOTE NAME: DESTINY MARADIAGA [facility] #: [id number] UNIT #: [id number] ROOM: 422 DOCTOR: KATIE SEGAL MD,ROGER BIRTHDATE: [birth year] DOS: 01/18/2017 SUBJECTIVE: She had the completion of Cardiolite stress test yesterday. The respiratory braga, the patient has been improving gradually. She was still awaiting the authorization for transfer to the prison facility. From the pulmonary standpoint, she has been doing very well. OBJECTIVE: VITAL SIGNS: Normal temperature, respiratory rate of 20, heart rate 67, blood pressure 130/58. The pulse oxygen saturation 3 liters nasal cannula 98% saturation recorded. HEENT: Shows no acute change. NECK: Supple. CARDIOVASCULAR SYSTEM: S1, S2 audible. LUNGS: Noted without any wheezing or crackles at the present time. ABDOMEN: Soft, nontender. LABORATORY DATA: Myocardial perfusion image of the patient and the stress test, the patient that was done yesterday was described as a normal study. IMPRESSION: 1. The patient with progressive resolution improvement in the acute chronic hypercapnic and hypoxic respiratory failure for this patient with resolving acute pneumonia and debility. 2. Chronic obesity. 3. Suspected obstructive sleep apnea disorder. PLAN OF TREATMENT: No change in plan of management. Transfer the patient to prison facility once the bed becomes available. Continue other supportive therapy, plan of management, other care. Usual treatment, all other supportive plan of management. ROGER WILSON MD CM:PNISABEL [phone] ROGER SEGAL MD 01/18/17 1207 interface
--- NOTE | ~2017-01-09 | PR ---
[place], [place] PROGRESS NOTE [id number] UN[facility] #: [id number] ROOM: 422 DOCTOR: KATIE SEGAL MD,ROGER BIRTHDATE: [birth year] DOS: 01/15/2017 PULMONARY PROGRESS SUBJECTIVE: She has been noted comfortable at this time. The patient reported reduction in symptoms of shortness of breath. She has been using the BiPAP at times. Denies symptoms of chest pain, undergoing physical therapy as well. The headache for the patient that was described yesterday seemed to be better. OBJECTIVE: VITAL SIGNS: Showed normal temperature, respiratory rate 18, heart rate 75, blood pressure 160/76. A pulse oxygen saturation of the patient noted on 3 liters nasal canula 98% saturation. HEENT: Examination shows head was atraumatic. Eyes nonicterus. NECK: Supple. CARDIOVASCULAR SYSTEM: S1, S2 audible. LUNGS: Noted without any wheezing or crackles at the present time. ABDOMEN: Soft, nontender. LABORATORY DATA: There were no labs done today. IMPRESSION: 1. The patient with progressive and gradual resolution of kderj-bq-tljszrh hypercapnic hypoxic respiratory failure or debility, exacerbation of chronic obstructive pulmonary disease, acute pneumonia and others progressively. Past history of nicotine abuse as well. 2. Suspected obstructive sleep apnea disorder. PLAN OF TREATMENT: No changes in the plan of management. Continue the patient on current therapy as in progress. Other usual plan of management as in progress as well. Usual care. Supportive therapy, plan of care and treatments. ROGER WILSON MD CM:PNTRANS [phone] ROGER SEGAL MD 01/16/17 1008 interface
--- NOTE | ~2017-01-09 | PR ---
[place], [place] PROGRESS NOTE NAME: DESTINY MARADIAGA [facility] #: [id number] UNIT #: [id number] ROOM: [facility] DOCTOR: KATIE SEGAL MD,ROGER BIRTHDATE: [birth year] DOS: 01/11/2017 SUBJECTIVE: The patient was seen and examined on 01/11/2017, remains on mechanical ventilator, sedated at this time with intravenous Diprivan. With the sedation vacation, she has been noted appropriate improvement in the mental status per nursing staff. The patient does follow vocal commands. At the time of the assessment, the patient has been noted still significantly sedated. She has not been noted any hemodynamic instability. The oxygen supplementation continued for the patient which has been gradually decreased based on the improvement in the oxygenation. She has been also started on the feeding, which has been very well tolerated with the use of Glucerna. OBJECTIVE: VITAL SIGNS: For the patient, which has been recorded showed the temperature of the patient recorded as normal. The respiratory rate 12, heart rate 76, blood pressure . Intake for the patient was recorded 1500 mL, output 1100 mL. Pulse oxygen saturation on 40% oxygen assist control mode 94% saturation. HEENT: Examination shows head was atraumatic. Eyes nonicterus. NECK: Supple. It was obese. CARDIOVASCULAR SYSTEM: S1, S2 audible. LUNGS: The patient was noted without any wheezing or crackles. Breaths are noted essentially moderately decreased bilaterally. ABDOMEN: Soft, obese, nontender. EXTREMITIES: Shows obesity for the patient with mild edema. LABORATORY DATA: The patient's CBC today: WBC count 8.2, hemoglobin 13.1, hematocrit 40.0, platelet count of 190,000. CMP of this morning, glucose 171, BUN and creatinine were normal, potassium 3.0. Albumin 2.4. Arterial blood gas on assist controlled mode 40% oxygen, pH of 7.50, pCO2 of 42, pO2 of 63.7 on the patient's tidal volume 550 mL. The blood culture of the patient, which were taken on the 12/09/2016 shows no bacterial growth, which was done from the venous access. The blood culture, which were taken yesterday for the patient was pending. The Gram stain of the endotracheal aspirate of the patient yesterday showed many white blood cells, few epithelial cells, few Gram-positive cocci in clusters and light growth of Gram-positive cocci were noted at this time with final culture results remains pending. The chest x-ray, 1 view, which was done for the patient this morning shows endotracheal tube was noted in appropriate position. Reduction of previous noted basilar infiltration, small pleural fluid was noted. Endotracheal tube were noted in appropriate position. PICC line of the patient noted in place in the right arm as well. IMPRESSION: 1. The patient who has been currently noted with acute hypercapnic and hypoxic respiratory failure. 2. History of chronic hypoxic respiratory failure. 3. The patient with acute exacerbation of chronic obstructive pulmonary disease. 4. Basilar area of atelectasis with Gram-positive cocci isolation, possibility of methicillin-resistant Staphylococcus aureus pneumonia would be considered. 5. Bilateral pleural fluid secondary to fluid overload or underlying infection [place], [place] PROGRESS NOTE NAME: DESTINY MARADIAGA UNIT #: [id number] ROOM: [facility] DOCTOR: ROGER JEROME MD BIRTHDATE: [birth year] of the patient has been considered, which has been noticed stable. 6. Chronic obesity. 7. History of nicotine dependence. 8. Metabolic alkalosis secondary to hypercarbia, stable. 9. Uncontrolled diabetes mellitus as well. PLAN OF TREATMENT: Continue ventilator bundle management and nutrition support. Discontinue sedation of the patient completely this morning. Once the patient noted fully awake and alert, she will be started on CPAP of 7, pressure support of 10 for a couple of hours if tolerated. Possible consideration of liberation from mechanical ventilator. Monitoring the respiratory alkalosis of the patient as well. Supportive care. The IV vancomycin has been added for the patient to the treatment until the patient's culture will be finally known. If the patient does feel the assessment for the liberation of mechanical ventilation today, consider fiberoptic bronchoscopy tomorrow as well. In the meantime, continue DVT prophylaxis. GI prophylaxis. Other supportive plan of management. Reduction of the antibiotic spectrum of the patient based on the final culture results availability. Other supportive therapy, plan and management and usual care. Total time pulmonary critical evaluation and management was 40 minutes. ROGER WILSON MD CM:BRAD [phone] ROGER ESGAL MD 01/11/172120 interface
--- NOTE | ~2017-01-09 | PR ---
[place], [place] PROGRESS NOTE [id number] UNIT #: [id number] ROOM: 422 DOCTOR: KATIE SEGAL MD,ROGER BIRTHDATE: [birth year] DOS: 01/14/2017 PULMONARY FOLLOWUP NOTE SUBJECTIVE: She has been complaining of some headache. In general, the patient has been noted reduction in symptoms of shortness of breath, coughing. Denies symptoms of chest pain or any abdominal pain. OBJECTIVE: VITAL SIGNS: For the patient, which have been recorded showed the temperature noted normal, respiratory rate , heart rate 70, blood pressure 190/68. Pulse oxygen saturation recorded on 3 liters nasal canula 99% saturation. HEENT: Examination showed no acute change. Chronic obesity. NECK: Supple. CARDIOVASCULAR SYSTEM: S1, S2 audible. LUNGS: Without any wheezing or crackles at the present time. ABDOMEN: Soft, nontender. IMPRESSION: 1. Resolving acute pneumonia with Staph aureus with improving acute hypercapnic and hypoxic respiratory failure. 2. Overall severe debility. PLAN OF TREATMENT: Continue physical therapy, occupational therapy, antibiotics, bronchodilators, use of the BiPAP for this patient, DVT prophylaxis and others. ROGER WILSON MD CM:PNTRANS [phone] ROGER SEGAL MD 01/14/171925 interface
--- NOTE | ~2017-01-09 | PR ---
[place], [place] PROGRESS NOTE NAME: DESTINY MARADIAGA UNIT #: [id number] ROOM: [facility] DOCTOR: JR BRANDT MD BIRTHDATE: [birth year] DOS: 01/10/2017 SUBJECTIVE: The patient is waking up with cold this morning. She complains of some discomfort across her chest. OBJECTIVE: VITAL SIGNS: Graphic trend shows a pressure of 142/46, pulse of 77, respirations 12, temperature 98. LUNGS: Diminished breath sounds. No wheezes, rales or rhonchi heard. HEART: Regular. ABDOMEN: Obese, soft. EXTREMITIES: Without any edema. LABORATORY DATA: Blood pressure was 212/78. Blood gas this morning, ABG 7.4, pCO2 of 42.7, pO2 of 67.1, bicarbonate 32.5, oxygen saturation 95.9, WBC count is 10.3, hemoglobin 13.7. BMP: Glucose 279, BUN 22, creatinine 0.85. Electrolytes are normal. ASSESSMENT AND PLAN: 1. Acute hypercapnic respiratory failure, status post intubation, doing well on the ventilator. 2. Chronic obstructive pulmonary disease, panacinar emphysema with acute exacerbation. The patient is getting breathing treatments. There is a very minimal bronchospasm, so I did not place her on any IV steroids. 3. CT of the chest showing bilateral small pneumonia with effusion, bilateral pleural effusion with atelectasis, possible underlying pneumonia, could be gram-negative organisms. Sputum cultures are pending. Dr. Subramanian is following. The patient is on multiple IV antibiotics. 4. Benign hypertension, poorly controlled. Restart some of her antihypertensives. 5. Acute diastolic congestive heart failure. Discussed with Dr. Enriquez this morning. The patient will need to have a stress test when more stable. 6. Type 2 diabetes mellitus, insulin-dependent. Restart coverage scale and feeding. [place], [place] PROGRESS NOTE NAME: DESTINY MARADIAGA UNIT #: [id number] ROOM: [facility] DOCTOR: JR BRANDT MD BIRTHDATE: [birth year] JR BRANDT MD CM:PNTRANS [id number] JR BRANDT MD 01/10/17 1150 interface
--- NOTE | ~2017-01-09 | PR ---
[place], [place] PROGRESS NOTE [id number] #: [id number] ROOM: 422 DOCTOR: JR BRANDT MD BIRTHDATE: [birth year] DOS: 01/16/2017 SUBJECTIVE: The patient is still having earache, but she feels better overall. OBJECTIVE: VITAL SIGNS: Graphic trend shows a pressure of 160/66, pulse is 68, respirations 16, temperature 98.0. LUNGS: Diminished breath sounds. HEART: Regular. ABDOMEN: Soft. EXTREMITIES: Without any edema. HEENT: Ear exam yesterday showed the absence of light reflex with cloudy tympanic membrane. ASSESSMENT AND PLAN: 1. Acute suppurative right otitis media, on Augmentin. 2. Pneumonia with Staph aureus, methicillin sensitive on IV vancomycin. 3. Failure to thrive, to go to [facility]. Social service will be consulted. 4. Acute systolic congestive heart failure with left ventricular dysfunction and wall motion abnormality, for a stress test tomorrow. 5. Benign hypertension, controlled. 6. Chronic obstructive pulmonary disease central lobar emphysema with exacerbation and respiratory failure which is much better. JR BRANDT MD CM:PNTRANS 0810 JR BRANDT MD 01/17/17 0022 interface
[~2017-01-09 07:22] MED LIST: ALENDRONATE SOD70 M1 PO; AMBIEN10 MG PO; AMLODIPINE BESYL5 MG PO; ANORO ELLIPTA1 POW IH; ASPIRIN325 MG PO; ATIVAN0.5 MG PO; ATIVAN2 MG PO; AUGMENTIN 875 M1 TAB PO; BACTRIM DS 8001 TA1 PO; BENADRYL ALLERG25 M1 PO; BUMETANIDE1 MG PO; CELEXA20 MG PO; CIPRODEX 0.3%-7.5 ML OT; CLINDAMYCIN HC300 MG PO; COLACE100 MG PO; COREG25 MG PO; COREG6.25 MG PO; DULE1ARO1 INH; FENOFIBRATE160 MG PO; FLEXERIL10 MG PO; FLUTICASON0.05 MG/AC NAS; INSULATARD H100 U/ML SC; K-Lyte/Cl25 MEQ PO; LANTUS100 U/ML SC; LEXAPRO20 MG PO; LIPITOR20 MG PO; Lovenox40 MG/0.4 PO; METANEX; MOBIC7.5 MG PO; MOM30 ML PO; MOTRIN800 MG PO; MULTIPLE VITAMI1 CAP PO; NEURONTIN300 MG PO; NICODERM21 MG/24 H; NITROGLYCERIN0.4 MG SL; NOVOLIN 70/30 710 ML SC; NOVOLIN 70100 UNIT/1 SQ; OSCAL,OYSTER S500 MG PO; OYSTER CALCIUM500 M1 PO; PERCOCET 325 MG1 TA3 PO; PLAVIX75 M1 PO; PLAVIX75 MG PO; PRAVACHOL40 MG PO; PREDNISONE10 MG PO; PRILOSEC20 M1 PO; PRINIVIL20 M1 PO; TORADOL IM; VICO75300 PO; VICODIN 5/500 505 MG PO; VICODIN 500 MG-1 TAB PO; VITAMIN D1000 IU PO; Zestril,Prinivi40 MG PO; [UNRECOGNIZED DRUG - OTHER] PO
[2017-01-09 08:11] LABS: BASO % 0.4 % (0.0-1.0); EOS # 0.1 10*3/uL (0.0-0.4); EOS % 1.3 % (1.0-4.0); HEMATOCRIT 47.4 % (37.0-47.0); IG # 0.1 10*3/uL (0.0-0.1); LYMPH # 1.3 10*3/uL (1.3-4.4); LYMPH % 13.4 % (27.0-41.0); MEAN CELL VOLUME 98.8 fl (81.0-99.0); MEAN CORPUSCULAR HGB 31.3 pg (27.0-31.0); MEAN CORPUSCULAR HGB CONC 31.6 g/dl (33.0-37.0); MEAN PLATELET VOLUME 9.7 fl (9.6-12.3); MONO # 0.6 10*3/uL (0.1-1.0); MONO % 5.8 % (3.0-9.0); NEUT # 7.7 10*3/uL (2.3-7.9); NEUT % 78.1 % (47.0-73.0); PLATELET COUNT AUTOMATED 183 10*3/uL (130-400); RED CELL DISTRI WIDTH 12.7 % (0-14.5); WHITE BLOOD COUNT 9.9 10*3/uL (4.8-10.8)
[2017-01-09 08:19] LABS: INTERNATIONAL NORM RATIO 0.9 (2.0-3.5)
[2017-01-09 08:31] LABS: ALBUMIN 2.8 gm/dl (3.1-4.5); ALKALINE PHOSPHATASE 112 U/L (45-117); BILIRUBIN, TOTAL 0.2 mg/dl (0.2-1.0); BUN 13 mg/dl (7-24); C-REACTIVE PROTEIN 1.16 MG/DL (0-0.3); CARBON DIOXIDE 33 mmol/L (21-32); CHLORIDE 102 mmol/L (98-107); CKMB 2.9 ng/ml (0.5-3.6); CPK 56 U/L (26-192); EST GLOM FILT AFRICAN AMERICAN > 60 ml/min; GLUCOSE 284 mg/dL (65-99); MAGNESIUM 2.1 mg/dL (1.5-2.1); POTASSIUM 4.5 mmol/L (3.5-5.1); SGOT/AST 19 IU/L (3-35); SGPT/ALT 18 U/L (12-78); SODIUM 141 mmol/L (136-145); TROPONIN I 0.018 ng/ml (<0.045)
[2017-01-09 11:53] LABS: ABG BASE EXCESS 1.7 mmol/L (-2.0-2.0); ABG HCO3 35.6 mmol/l (22-26); ARTERIAL BLOOD GAS PO2 69.6 mmHg (80-90)
[2017-01-09 12:00] LABS: ARTERIAL BLOOD GAS PH 7.162 (7.35-7.45)
[2017-01-09 14:31] LABS: CKMB 2.7 ng/ml (0.5-3.6); TROPONIN I 0.032 ng/ml (<0.045)
[2017-01-09 16:05] LABS: ABG BASE EXCESS 6.5 mmol/L (-2.0-2.0); ABG CO2 CONTENT 33.9 mmol/L (23-27); ABG HCO3 32.3 mmol/l (22-26); ABG TEMPERATURE 96.8 F (98.0-99.0); ARTERIAL BLOOD GAS PH 7.424 (7.35-7.45); ARTERIAL BLOOD GAS PO2 74.9 mmHg (80-90)
[2017-01-09] MEDS ORDERED: NORCO 7.5-3251 EACH PO (16:07)
[2017-01-09] MEDS ORDERED: LIPITOR40 MG PO (16:09)
[2017-01-09] MEDS ORDERED: OYSTER SHELL C1 EAC2 PO (16:10)
[2017-01-09] MEDS ORDERED: COREG25 MG PO (16:11)
[2017-01-09] MEDS ORDERED: VITAMIN D1000 IU PO (16:12)
[2017-01-09] MEDS ORDERED: PRINIVIL20 M1 PO (16:16)
[2017-01-09 17:24] LABS: BILIRUBIN NEGATIVE (NEGATIVE); BLOOD 3+ (NEGATIVE); CLARITY SL CLOUDY (CLEAR); COLOR YELLOW (YELLOW); GLUCOSE 2+ (NEGATIVE); KETONE 1+ (NEGATIVE); LEUKO ESTERASE NEGATIVE (NEGATIVE); NITRITE NEGATIVE (NEGATIVE); PH 6.5 (5.0-9.0); PROTEIN 2+ (NEGATIVE); UROBILINOGEN 0.2 E.U./dl (0.2-1.0)
[2017-01-09 17:31] LABS: BACTERIA TRACE; EPITHELIAL CELLS 0-2; RBC TNTC rbc/hpf (0-2); URINE REFLEX COMMENT YES (NO); WBC 0-2 wbc/hpf (0-5)
[2017-01-09 22:59] LABS: CKMB 1.7 ng/ml (0.5-3.6); TROPONIN I 0.022 ng/ml (<0.045)
[2017-01-10] VITALS (11 sets, daily range): BP systolic 115–210; BP diastolic 40–86
[2017-01-10 06:18] LABS: BASO % 0.1 % (0.0-1.0); HEMOGLOBIN 13.7 g/dl (12.0-16.0); LYMPH # 1.1 10*3/uL (1.3-4.4); LYMPH % 10.2 % (27.0-41.0); MEAN CORPUSCULAR HGB 33.9 pg (27.0-31.0); MEAN CORPUSCULAR HGB CONC 36.4 g/dl (33.0-37.0); MEAN PLATELET VOLUME 11.2 fl (9.6-12.3); MONO # 0.9 10*3/uL (0.1-1.0); MONO % 8.9 % (3.0-9.0); NEUT # 8.3 10*3/uL (2.3-7.9); NEUT % 80.4 % (47.0-73.0); NUCLEATED RED BLOOD CELL 0.1 10*3/uL (0.0-0.0); NUCLEATED RED BLOOD CELL 0.5 % (0.0-0.0); PLATELET COUNT AUTOMATED 199 10*3/uL (130-400); RED BLOOD COUNT 4.04 10*6/uL (4.10-5.10); RED CELL DISTRI WIDTH 13.1 % (0-14.5); WHITE BLOOD COUNT 10.3 10*3/uL (4.8-10.8)
[2017-01-10 06:25] LABS: HEMATOCRIT 37.6 % (37.0-47.0); MEAN CELL VOLUME 93.1 fl (81.0-99.0)
[2017-01-10 06:35] LABS: ABG BASE EXCESS 8.4 mmol/L (-2.0-2.0); ABG CO2 CONTENT 33.9 mmol/L (23-27); ABG HCO3 32.5 mmol/l (22-26); ARTERIAL BLOOD GAS PH 7.493 (7.35-7.45); ARTERIAL BLOOD GAS PO2 67.1 mmHg (80-90)
[2017-01-10 07:00] LABS: BUN 22 mg/dl (7-24); CARBON DIOXIDE 30 mmol/L (21-32); CHLORIDE 100 mmol/L (98-107); EST GLOM FILT AFRICAN AMERICAN > 60 ml/min; GLUCOSE 279 mg/dL (65-99); POTASSIUM 4.1 mmol/L (3.5-5.1); SODIUM 140 mmol/L (136-145)
[2017-01-11] VITALS (7 sets, daily range): BP systolic 140–210; BP diastolic 50–75
[2017-01-11 05:17] LABS: ALBUMIN 2.4 gm/dl (3.1-4.5); ALKALINE PHOSPHATASE 86 U/L (45-117); BILIRUBIN, TOTAL 0.2 mg/dl (0.2-1.0); BUN 24 mg/dl (7-24); CARBON DIOXIDE 38 mmol/L (21-32); CHLORIDE 99 mmol/L (98-107); EST GLOM FILT AFRICAN AMERICAN > 60 ml/min; GLUCOSE 171 mg/dL (65-99); SGOT/AST 10 IU/L (3-35); SGPT/ALT 12 U/L (12-78); SODIUM 143 mmol/L (136-145); TOTAL PROTEIN 5.7 gm/dL (6.4-8.2)
[2017-01-11 05:57] LABS: BASO % 0.2 % (0.0-1.0); EOS # 0.1 10*3/uL (0.0-0.4); EOS % 1.5 % (1.0-4.0); HEMATOCRIT 40.8 % (37.0-47.0); HEMOGLOBIN 13.1 g/dl (12.0-16.0); LYMPH % 24.9 % (27.0-41.0); MEAN CORPUSCULAR HGB CONC 32.1 g/dl (33.0-37.0); MEAN PLATELET VOLUME 10.1 fl (9.6-12.3); MONO # 0.6 10*3/uL (0.1-1.0); MONO % 7.6 % (3.0-9.0); NEUT # 5.3 10*3/uL (2.3-7.9); NEUT % 65.3 % (47.0-73.0); PLATELET COUNT AUTOMATED 190 10*3/uL (130-400); RED BLOOD COUNT 4.23 10*6/uL (4.10-5.10); RED CELL DISTRI WIDTH 13.1 % (0-14.5); WHITE BLOOD COUNT 8.2 10*3/uL (4.8-10.8)
[2017-01-11 06:02] LABS: MEAN CELL VOLUME 96.5 fl (81.0-99.0)
[2017-01-11 06:08] LABS: ABG BASE EXCESS 8.9 mmol/L (-2.0-2.0); ABG CO2 CONTENT 34.6 mmol/L (23-27); ABG HCO3 33.2 mmol/l (22-26); ARTERIAL BLOOD GAS PH 7.501 (7.35-7.45); ARTERIAL BLOOD GAS PO2 67.3 mmHg (80-90)
[2017-01-11 11:41] LABS: ABG BASE EXCESS 11.1 mmol/L (-2.0-2.0); ABG CO2 CONTENT 37.4 mmol/L (23-27); ARTERIAL BLOOD GAS PH 7.492 (7.35-7.45); ARTERIAL BLOOD GAS PO2 42.2 mmHg (80-90)
[2017-01-11 12:02] LABS: ABG BASE EXCESS 10.8 mmol/L (-2.0-2.0); ABG CO2 CONTENT 36.2 mmol/L (23-27); ABG HCO3 34.9 mmol/l (22-26); ARTERIAL BLOOD GAS PH 7.514 (7.35-7.45); ARTERIAL BLOOD GAS PO2 90.4 mmHg (80-90)
[2017-01-12] VITALS (8 sets, daily range): BP systolic 160–195; BP diastolic 52–70
[2017-01-12 05:40] LABS: ALBUMIN 2.2 gm/dl (3.1-4.5); BILIRUBIN, TOTAL 0.5 mg/dl (0.2-1.0); BUN 15 mg/dl (7-24); CARBON DIOXIDE 36 mmol/L (21-32); CHLORIDE 104 mmol/L (98-107); EST GLOM FILT AFRICAN AMERICAN > 60 ml/min; GLUCOSE 134 mg/dL (65-99); POTASSIUM 3.4 mmol/L (3.5-5.1); SGOT/AST 12 IU/L (3-35); SGPT/ALT 10 U/L (12-78); SODIUM 147 mmol/L (136-145); TOTAL PROTEIN 5.6 gm/dL (6.4-8.2)
[2017-01-12 05:41] LABS: ALKALINE PHOSPHATASE 75 U/L (45-117)
[2017-01-12 05:53] LABS: BASO % 0.3 % (0.0-1.0); EOS # 0.1 10*3/uL (0.0-0.4); EOS % 1.5 % (1.0-4.0); HEMATOCRIT 38.7 % (37.0-47.0); HEMOGLOBIN 12.4 g/dl (12.0-16.0); LYMPH # 1.6 10*3/uL (1.3-4.4); LYMPH % 23.8 % (27.0-41.0); MEAN CELL VOLUME 98.5 fl (81.0-99.0); MEAN CORPUSCULAR HGB 31.6 pg (27.0-31.0); MEAN PLATELET VOLUME 9.8 fl (9.6-12.3); MONO # 0.7 10*3/uL (0.1-1.0); MONO % 10.6 % (3.0-9.0); NEUT # 4.3 10*3/uL (2.3-7.9); NEUT % 63.4 % (47.0-73.0); PLATELET COUNT AUTOMATED 176 10*3/uL (130-400); RED BLOOD COUNT 3.93 10*6/uL (4.10-5.10); RED CELL DISTRI WIDTH 12.7 % (0-14.5); WHITE BLOOD COUNT 6.7 10*3/uL (4.8-10.8)
[2017-01-13] VITALS: BP 155/54
[2017-01-13 06:03] LABS: BASO % 0.4 % (0.0-1.0); EOS # 0.1 10*3/uL (0.0-0.4); HEMATOCRIT 40.2 % (37.0-47.0); LYMPH # 1.5 10*3/uL (1.3-4.4); MEAN CELL VOLUME 97.6 fl (81.0-99.0); MEAN CORPUSCULAR HGB 31.6 pg (27.0-31.0); MEAN CORPUSCULAR HGB CONC 32.3 g/dl (33.0-37.0); MEAN PLATELET VOLUME 9.7 fl (9.6-12.3); MONO # 0.6 10*3/uL (0.1-1.0); MONO % 8.2 % (3.0-9.0); NEUT # 4.8 10*3/uL (2.3-7.9); PLATELET COUNT AUTOMATED 153 10*3/uL (130-400); RED BLOOD COUNT 4.12 10*6/uL (4.10-5.10); RED CELL DISTRI WIDTH 12.4 % (0-14.5)
[2017-01-13 06:43] LABS: ALBUMIN 2.3 gm/dl (3.1-4.5); BUN 9 mg/dl (7-24); CARBON DIOXIDE 37 mmol/L (21-32); CHLORIDE 100 mmol/L (98-107); GLUCOSE 245 mg/dL (65-99); POTASSIUM 3.6 mmol/L (3.5-5.1); SODIUM 140 mmol/L (136-145)
[2017-01-13 06:46] LABS: ALKALINE PHOSPHATASE 82 U/L (45-117); BILIRUBIN, TOTAL 0.4 mg/dl (0.2-1.0); EST GLOM FILT AFRICAN AMERICAN > 60 ml/min; SGOT/AST 14 IU/L (3-35); SGPT/ALT 13 U/L (12-78); TOTAL PROTEIN 5.9 gm/dL (6.4-8.2)
[2017-01-13 08:00] VITALS: BP 120/50
[2017-01-13 12:00] VITALS: BP 164/55
[2017-01-13 16:00] VITALS: BP 165/60
[2017-01-13 20:00] VITALS: BP 140/50
[2017-01-14] VITALS: BP 164/72
[2017-01-14 08:00] VITALS: BP 190/68
[2017-01-14 12:00] VITALS: BP 190/67
[2017-01-14 16:00] VITALS: BP 170/54
[2017-01-14 20:00] VITALS: BP 152/56
[2017-01-15] VITALS: BP 170/68
[2017-01-15 08:00] VITALS: BP 179/62
[2017-01-15 12:00] VITALS: BP 160/76
[2017-01-15 16:00] VITALS: BP 166/50
[2017-01-15 20:00] VITALS: BP 166/52
[2017-01-16] VITALS: BP 157/50
[2017-01-16 06:59] LABS: BASO % 0.5 % (0.0-1.0); EOS # 0.2 10*3/uL (0.0-0.4); EOS % 2.4 % (1.0-4.0); HEMATOCRIT 39.2 % (37.0-47.0); HEMOGLOBIN 12.7 g/dl (12.0-16.0); LYMPH # 1.6 10*3/uL (1.3-4.4); LYMPH % 25.8 % (27.0-41.0); MEAN CELL VOLUME 96.1 fl (81.0-99.0); MEAN CORPUSCULAR HGB 31.1 pg (27.0-31.0); MEAN CORPUSCULAR HGB CONC 32.4 g/dl (33.0-37.0); MEAN PLATELET VOLUME 9.7 fl (9.6-12.3); MONO # 0.6 10*3/uL (0.1-1.0); MONO % 9.6 % (3.0-9.0); NEUT # 3.8 10*3/uL (2.3-7.9); NEUT % 61.4 % (47.0-73.0); PLATELET COUNT AUTOMATED 183 10*3/uL (130-400); RED BLOOD COUNT 4.08 10*6/uL (4.10-5.10); RED CELL DISTRI WIDTH 12.1 % (0-14.5); WHITE BLOOD COUNT 6.1 10*3/uL (4.8-10.8)
[2017-01-16 07:27] LABS: BUN 13 mg/dl (7-24); CARBON DIOXIDE 32 mmol/L (21-32); CHLORIDE 98 mmol/L (98-107); EST GLOM FILT AFRICAN AMERICAN > 60 ml/min; GLUCOSE 226 mg/dL (65-99); POTASSIUM 4.3 mmol/L (3.5-5.1); SODIUM 136 mmol/L (136-145)
[2017-01-16 08:00] VITALS: BP 160/66
[2017-01-16 12:00] VITALS: BP 175/59
[2017-01-16 14:32] VITALS: BP 158/68
[2017-01-16 16:00] VITALS: BP 187/62
[2017-01-16 20:00] VITALS: BP 151/52
[2017-01-17] VITALS: BP 158/74
[2017-01-17 06:15] LABS: BASO % 0.4 % (0.0-1.0); EOS # 0.2 10*3/uL (0.0-0.4); EOS % 2.5 % (1.0-4.0); HEMATOCRIT 40.3 % (37.0-47.0); HEMOGLOBIN 12.9 g/dl (12.0-16.0); LYMPH # 1.3 10*3/uL (1.3-4.4); LYMPH % 19.5 % (27.0-41.0); MEAN CELL VOLUME 96.9 fl (81.0-99.0); MEAN PLATELET VOLUME 9.9 fl (9.6-12.3); MONO # 0.7 10*3/uL (0.1-1.0); MONO % 10.2 % (3.0-9.0); NEUT # 4.6 10*3/uL (2.3-7.9); NEUT % 66.8 % (47.0-73.0); PLATELET COUNT AUTOMATED 204 10*3/uL (130-400); RED BLOOD COUNT 4.16 10*6/uL (4.10-5.10); RED CELL DISTRI WIDTH 12.2 % (0-14.5); WHITE BLOOD COUNT 6.9 10*3/uL (4.8-10.8)
[2017-01-17 06:40] LABS: BUN 13 mg/dl (7-24); CARBON DIOXIDE 39 mmol/L (21-32); CHLORIDE 97 mmol/L (98-107); EST GLOM FILT AFRICAN AMERICAN > 60 ml/min; GLUCOSE 284 mg/dL (65-99); POTASSIUM 4.7 mmol/L (3.5-5.1); SODIUM 136 mmol/L (136-145)
[2017-01-17 08:00] VITALS: BP 170/54
[2017-01-17 12:00] VITALS: BP 170/50
[2017-01-17 16:00] VITALS: BP 160/50
[2017-01-17 20:00] VITALS: BP 161/45
[2017-01-18] VITALS: BP 156/48
[2017-01-18 08:00] VITALS: BP 130/50
[2017-01-18] MEDS ORDERED: Zestril,Prinivi40 MG PO (09:11)
[2017-01-18] MEDS ORDERED: FUROSEMIDE10 MG/ML PO (09:11)
[2017-01-18] MEDS ORDERED: KLOR-CON M1010 ME1 PO (09:11)
[2017-01-18] MEDS ORDERED: LEXAPRO10 MG PO (09:11)
[2017-01-18] MEDS ORDERED: PREDNISONE5 MG PO (09:11)
[2017-01-18 11:47] VITALS: BP 160/50
[2017-01-18 16:00] VITALS: BP 152/50
[2017-01-18 20:00] VITALS: BP 149/58
[2017-01-19] VITALS: BP 161/56
[2017-01-19 07:58] VITALS: BP 148/60
[2017-01-19 12:03] VITALS: BP 130/52
== END 2017-01-19 15:41 | disposition other institution (70) | DRG 208 ==
LOC: ED 07:22 → EDHOLD 09:22 → 4E 09:22 → ICCU 09:22 → 5E 09:47 → ICCU 11:04 → 4E 01-12 13:38
PROVIDERS: Emergency Medicine; Internal Medicine; Internal Medicine Critical Care Medicine
PROC: 5A1945Z Respiratory Ventilation, 24-96 Consecutive Hours (ICD-10-PCS; principal; 2017-01-09)
PROC: 0BH17EZ Insertion of Endotracheal Airway into Trachea, Via Natural or Artificial Opening (ICD-10-PCS; principal; 2017-01-09)
PROC: 5A09457 Assistance with Respiratory Ventilation, 24-96 Consecutive Hours, Continuous Positive Airway Pressure (ICD-10-PCS; 2017-01-11)
DX: J15.211 Pneumonia due to Methicillin susceptible Staphylococcus aureus (principal); J96.21 Acute and chronic respiratory failure with hypoxia; I50.41 Acute combined systolic (congestive) and diastolic (congestive) heart failure; J96.22 Acute and chronic respiratory failure with hypercapnia; J44.0 Chronic obstructive pulmonary disease with (acute) lower respiratory infection; J44.1 Chronic obstructive pulmonary disease with (acute) exacerbation; J69.0 Pneumonitis due to inhalation of food and vomit; E11.42 Type 2 diabetes mellitus with diabetic polyneuropathy; E11.51 Type 2 diabetes mellitus with diabetic peripheral angiopathy without gangrene; I11.0 Hypertensive heart disease with heart failure; B35.1 Tinea unguium; F17.200 Nicotine dependence, unspecified, uncomplicated; E11.65 Type 2 diabetes mellitus with hyperglycemia; E66.01 Morbid (severe) obesity due to excess calories; R62.7 Adult failure to thrive; E87.6 Hypokalemia; H66.001 Acute suppurative otitis media without spontaneous rupture of ear drum, right ear; I25.10 Atherosclerotic heart disease of native coronary artery without angina pectoris; F41.1 Generalized anxiety disorder; F32.9 Major depressive disorder, single episode, unspecified; K21.9 Gastro-esophageal reflux disease without esophagitis; I25.2 Old myocardial infarction; Z90.49 Acquired absence of other specified parts of digestive tract; Z98.51 Tubal ligation status; Z88.6 Allergy status to analgesic agent; Z82.49 Family history of ischemic heart disease and other diseases of the circulatory system; Z68.35 Body mass index [BMI] 35.0-35.9, adult

== ENCOUNTER 2017-05-28 11:20 | Inpatient (IN) | payer OTHER ==
[~2017-05-28] VITALS: Ht 165.1 cm; Wt 118.8 kg
--- NOTE | ~2017-05-28 | PR ---
[place], [place] PROGRESS NOTE NAME: DESTINY MARADIAGA [facility] #: [id number] UNIT #: [id number] ROOM: 421 DOCTOR: JT GUEVARA MD BIRTHDATE: [birth year] DOS: 06/01/2017 SUBJECTIVE: 24-hour events noted. Discussed with the nursing staff. The patient is comfortably sleeping service. OBJECTIVE: VITAL SIGNS: Hemodynamically stable, blood pressure is 130/50. HEENT: Unremarkable. I's and O's: the patient is negative 1180. NECK: Supple, no JVD. REVIEW OF SYSTEMS: Six to eight systems reviewed. LUNGS: Diminished breath sounds. HEART: Heart sounds are regular. NEUROLOGICAL: Stable. LABORATORY DATA: Hemoglobin 10.3, hematocrit 33.2. Electrolytes are normal. Creatinine is 1.25. Echocardiogram showed a good ejection fraction. IMPRESSION: The patient with morbid obesity and exacerbation of diastolic heart failure, moderate protein calorie neutropenia, hyperglycemia, diabetes, esophagitis. The patient's occult blood was positive. IMPRESSION AND PLAN: GI has already seen for an esophagogastroduodenoscopy and colonoscopy on Monday. Plavix can be held because of no evidence of recent stenting at this point and resume it as soon as feasible. Monitor the heart rate and blood pressure closely. Monitor the H and H closely and we will follow up. JT GUEVARA MD CM:PNTRANS 0637 21 JT GUEVARA MD 06/01/172021 interface
--- NOTE | ~2017-05-28 | CON ---
[place], [place] REPORT OF CONSULTATION NAME[id number] #: [id number] ROOM: 421 DOCTOR: EFRAIN DOUGHERTY MD BIRTHDATE: [birth year] DOS: HISTORY OF PRESENT ILLNESS: This is a 66-year-old -Citizen Of [place] woman who has seen Dr. Enriquez in the past and has coronary artery disease. She had coronary artery evaluated a few years ago. She had a 50% stenosis in the right coronary artery and EF was about 45%, had echocardiogram in 2016, demonstrated an EF of 45%. She also has chronic respiratory failure and significant COPD and in January of this year, had been admitted for respiratory failure and unresponsiveness due to hypercarbia. At that time, she had a Lexiscan Cardiolite study done and it demonstrated no ischemia. She has type 2 diabetes mellitus, essential hypertension, anxiety disorder and GERD. She has never had a stroke or kidney failure. She had noticed increasing shortness of breath over the last several days and yesterday had anterior chest pressure and heaviness that lasted for a while and did not radiate into the neck, arm, or into the back and she had no accompanied palpitations and sweating or dizziness. She has not had any swelling of the legs. HOME MEDICATIONS: Include atorvastatin, calcium with vitamin D, carvedilol, cholecalciferol, clopidogrel, Colace, Lexapro, lisinopril, multivitamins, omeprazole and insulin. PHYSICAL EXAMINATION: GENERAL: This reveals a patient who is moderately obese. She is fairly comfortable and has oxygen on. She is not cyanotic and is not anemic. Temperature is normal. There is no thyromegaly or finger clubbing. VITAL SIGNS: Pulse is regular at 66 beats per minute, blood pressure 136/56. NECK: JVP is normal. AJR is negative. There is no carotid bruit. CARDIOVASCULAR: Cardiac auscultation reveals somewhat distant heart sounds without any murmurs or extra heart sounds. EXTREMITIES: There is no edema in the lower extremities. RESPIRATORY: Breath sounds are moderately diminished, more so on the left side with inspiratory and expiratory rhonchi and crackles. No wheezing was present. DIAGNOSTIC STUDIES: An ECG demonstrated a normal sinus rhythm at 71 beats per minute and an intraventricular conduction defect and unifocal PVCs. Chest x-ray did not demonstrate any acute abnormalities. Troponin I level was normal. Hemoglobin 11.3 g/dL. Blood glucose is high. BUN 7 and creatinine 0.92, potassium 4.0, chloride was 96 and CO2 32. IMPRESSION: This patient has significant COPD and had developed worsening shortness of breath. Chest pain that she has had is likely to be from respiratory effort. She had a normal stress test 4 months ago. An echocardiogram has already been done and Dr. Enriquez will take a look at it and will see her tomorrow. I doubt if any further cardiac workup would be necessary. [place], [place] REPORT OF CONSULTATION NAME: DESTINY MARADIAGA UNIT #: [id number] ROOM: 421 DOCTOR: EFRAIN DOUGHERTY MD BIRTHDATE: [birth year] I thank you on behalf of Dr. Enriquez for this consult. EFRAIN DOUGHERTY MD CM:CONSTR:REPORT OF CONSULTATION 1715 05/30/17 0642 interface JT ENRIQUEZ MD
--- NOTE | ~2017-05-28 | PR ---
[place], [place] PROGRESS NOTE NAME: [id number] #: [id number] ROOM: 421 DOCTOR: JT GUEVARA MD BIRTHDATE: [birth year] DOS: 05/30/2017 A 24-hour events noted. Medically, the patient is staying stable. PHYSICAL EXAMINATION: VITAL SIGNS: Blood pressure is 168/60. She is in sinus rhythm, heart rate is 72. NECK: Supple. No JVD. LUNGS: Diminished air entry. The patient has had negative 1415 in. REVIEW OF SYSTEMS: Significant for 6-8 systems review. HEART: Sounds are regular. ABDOMEN: Soft, nontender. NEUROLOGIC: Stable. LABORATORY DATA: Hemoglobin 10.7, hematocrit 32.9, platelet count within normal limits. Sodium 137, potassium 4.2, creatinine is 0.9. Echo showed an ejection fraction is about 50%. IMPRESSION: Acute exacerbation of congestive heart failure, chronic systolic heart failure, coronary artery bypass surgery, hypertension and hyperlipidemia. I have done a stress test about 4 months ago, was normal. PLAN: Continue the present care. Continue the diuresis. Continue the COPD management and we will follow up. JT GUEVARA MD CM:PNTRANS 0719 [id number] JT GUEVARA MD 05/30/17 0939 interface
--- NOTE | ~2017-05-28 | O ---
[place], [place] OPERATIVE NOTE NAME[id number] UN[facility] #: [id number] ROOM: 421 DOCTOR: RAJANI MARIE,MARGO BIRTHDATE: [birth year] DOS: 06/02/2017 GASTROENDOSCOPIC REPORT. HISTORY OF PRESENT ILLNESS: A 66-year-old patient who has presented with chief complaint of epigastric distress; abdominal pain; anemia, borderline; congestive heart failure history; morbid obesity, amongst few of problems. PROCEDURE: Today's procedure part of investigation is panendoscopy and colonoscopy. PREMEDICATION: Versed and Diprivan. SCOPE: Olympus folding colonoscope 10L video. REPORT: After putting the patient in the left lateral position and after application of lubricant to rectal pouch and digital examination, scope was introduced and advanced to about the hepatic flexure. The retained stool is hindering detailed visualization. However, we were able to achieve to this level. Scope was gradually withdrawn due to presence of stool. Further advancement of the scope was impractical. The patient tolerated the procedure well. IMPRESSION: Colonoscopy with retained stool resolved in the right colon. PLAN AND DISCUSSION: We are going to proceed with panendoscopy. MARGO GERARD MD CM:OPRECORD:OPERATIVE NOTE [id number] MARGO GERARD MD 06/03/17 0519 interface
--- NOTE | ~2017-05-28 | O ---
[place], [place] OPERATIVE NOTE NAME: [facility]AG[facility] [id number] UNIT #: [id number] ROOM: 421 DOCTOR: RAJANI MARIE,MARGO BIRTHDATE: [birth year] DOS: INDICATIONS: The patient has presented with epigastric distress, drinking multiple sodas per day. PROCEDURE: Today's procedure part of investigation is panendoscopy. PREMEDICATION: Versed and Diprivan. SCOPE: Olympus forward-viewing gastroscope Q10 video. REPORT: After putting the patient in the left lateral position and after application of lubricant to the scope, the scope was introduced; thereafter, under direct visualization, advanced through the length of esophagus without difficulty. Gastric pouch was entered. Gastritis was seen. Duodenal bulb, second and third part within normal limits. The patient extubated, tolerated procedure well. IMPRESSION: Mild gastritis. PLAN AND DISCUSSION: Continuation with PPI, Protonix 40 mg p.o. every day and supportive management. No active source of bleeding was seen, limitations of colonoscopy due to the presence of right colon stool, was photographed and documented. MARGO GERARD MD CM:OPRECORD:OPERATIVE NOTE [id number] MARGO GERARD MD 06/02/17 1907 interface
[2017-05-28 11:20] VITALS: BP 166/90
[~2017-05-28 11:20] MED LIST changes: +FUROSEMIDE10 MG/ML PO; +KLOR-CON M1010 ME1 PO; +LEXAPRO10 MG PO; +LIPITOR40 MG PO; +NORCO 7.5-3251 EACH PO; +OYSTER SHELL C1 EAC2 PO; +PREDNISONE5 MG PO
[2017-05-28 12:09] LABS: BASO % 0.5 % (0.0-1.0); EOS # 0.1 10*3/uL (0.0-0.4); EOS % 1.7 % (1.0-4.0); HEMATOCRIT 37.6 % (37.0-47.0); HEMOGLOBIN 12.1 g/dl (12.0-16.0); LYMPH # 1.3 10*3/uL (1.3-4.4); LYMPH % 15.1 % (27.0-41.0); MEAN CELL VOLUME 91.3 fl (81.0-99.0); MEAN CORPUSCULAR HGB 29.4 pg (27.0-31.0); MEAN CORPUSCULAR HGB CONC 32.2 g/dl (33.0-37.0); MEAN PLATELET VOLUME 9.2 fl (9.6-12.3); MONO # 0.6 10*3/uL (0.1-1.0); MONO % 7.5 % (3.0-9.0); NEUT # 6.2 10*3/uL (2.3-7.9); NEUT % 74.7 % (47.0-73.0); PLATELET COUNT AUTOMATED 205 10*3/uL (130-400); RED BLOOD COUNT 4.12 10*6/uL (4.10-5.10); RED CELL DISTRI WIDTH 12.8 % (0-14.5); WHITE BLOOD COUNT 8.3 10*3/uL (4.8-10.8)
[2017-05-28 12:26] LABS: ALBUMIN 2.4 gm/dl (3.1-4.5); ALKALINE PHOSPHATASE 118 U/L (45-117); BUN 17 mg/dl (7-24); CHLORIDE 96 mmol/L (98-107); CREATININE 0.92 mg/dL (0.55-1.02); SGOT/AST 12 IU/L (3-35); SGPT/ALT 12 U/L (12-78); SODIUM 138 mmol/L (136-145); TOTAL PROTEIN 7.1 gm/dL (6.4-8.2)
[2017-05-28 12:27] LABS: TROPONIN I 0.035 ng/ml (<0.045)
--- NOTE | 2017-05-28 12:55 | NUR ---
LASIX INJECTION STOP TIME IS NOW.
[2017-05-28 13:10] VITALS: BP 158/80
[2017-05-28 13:40] VITALS: BP 183/77
--- NOTE | 2017-05-28 13:40 | NUR ---
A 66 YO FEMALE, admitted to , under the services of CONNIE Boles DO with a diagnosis of CHF/MALNUTRITION. Chief complaint is SHORTNESS OF BREATH FOR PAST FOUR DAYS AND PAIN TO CENTER OF CHEST STARTING EARLIER TODAY. Patient arrived via stretcher from ER. Monitor applied. Initial assessment completed. Vital signs taken and recorded. CONNIE BOLES DO notified of admission to the unit. Orders received. See assessment for past medical history, medications and allergies. Patient and/or family oriented to unit. [facility]. Clothing/patient valuable form completed. SANGITA REA
--- NOTE | 2017-05-28 14:26 | NUR ---
PER PATIENT DAUGHTER TO BRING IN HER MEDICATIONS LIST; [facility] IS CLOSED TODAY, PATIENT NOT ABLE TO RECALL WHAT MEDICATIONS ARE TAKEN AT HOME.
[2017-05-28 16:00] VITALS: BP 162/64
--- NOTE | 2017-05-28 16:36 | NUR ---
Notified Dr. Carrington that I reviewed med rec with pt daughters. Daughters had list on their phone, so med rec was updated.
--- NOTE | 2017-05-28 17:23 | NUR ---
Spoke with Dr. Enriquez. Notified of consult, reason for admission, pt labs, and orders. New orders received for echo if not done in past 6 months. Pt had echo in august of 2016 so echo was ordered for the am.
--- NOTE | 2017-05-28 17:50 | NUR ---
Medicated with norco per prn order for complaints of back pain.
--- NOTE | 2017-05-28 18:01 | NUR ---
Pt states that she is anxious. States she would like ativan 1 mg. States she used to take this at home. I asked pt why it was not on her medication list then. Pt states that her prescription and she has not been back to the [facility] to get it refilled. Ativan 1 mg is in pt medication hx on med rec but last script was given in July of 2016. [address] Carrington of pt request and statements. States he will order pt a one time dose of ativan and then he will order vistaril for pt.
--- NOTE | 2017-05-28 18:30 | NUR ---
States norco helped to relieve pain and ativan was effective for anxiety.
[2017-05-28 20:00] VITALS: BP 155/70
--- NOTE | 2017-05-28 22:33 | NUR ---
Requesting something for back pain. Medicated with norco per prn order.
[2017-05-29] VITALS (7 sets, daily range): BP systolic 106–168; BP diastolic 52–84
--- NOTE | 2017-05-29 00:19 | NUR ---
PATIENT ASLEEP IN BED, AROUSES EASILY. PATIENT STATES EARLIER MEDICATIONS HELPED WITH HER CHEST PAIN. SHE NOW RATES PAIN 5/10, DOWN FROM 8/10. PATIENT STATES SHE EXPERIENCES SOB AT TIMES, MORE SO WITH EXERTION. PATIENT EDUCATED ABOUT S/S TO NOTIFY RN. WILL MONITOR PATIENT. CALL LIGHT LEFT WITHIN REACH.
--- NOTE | 2017-05-29 04:10 | NUR ---
PATIENT MEDICATED WITH PO NORCO FOR C/O CHEST "ACHES" THAT SHE RATES 04/17. PATIENT ALSO C/O CHRONIC BACK PAIN 04/17. WILL MONITOR EFFECTIVENESS. CALL LIGHT LEFT WITHIN REACH.
--- NOTE | 2017-05-29 05:16 | NUR ---
PATIENT STATES EARLIER MEDICATION BEGINNING TO TAKE EFFECT. RATING PAIN 5/10. WILL CONTINUE TO MONITOR. CALL LIGHT LEFT WITHIN REACH.
[2017-05-29 06:03] LABS: BASO % 0.4 % (0.0-1.0); EOS # 0.1 10*3/uL (0.0-0.4); EOS % 1.8 % (1.0-4.0); HEMATOCRIT 35.4 % (37.0-47.0); HEMOGLOBIN 11.3 g/dl (12.0-16.0); LYMPH # 2.3 10*3/uL (1.3-4.4); LYMPH % 29.4 % (27.0-41.0); MEAN CELL VOLUME 91.2 fl (81.0-99.0); MEAN CORPUSCULAR HGB 29.1 pg (27.0-31.0); MEAN CORPUSCULAR HGB CONC 31.9 g/dl (33.0-37.0); MEAN PLATELET VOLUME 9.4 fl (9.6-12.3); MONO # 0.7 10*3/uL (0.1-1.0); MONO % 8.9 % (3.0-9.0); NEUT # 4.7 10*3/uL (2.3-7.9); NEUT % 59.1 % (47.0-73.0); PLATELET COUNT AUTOMATED 194 10*3/uL (130-400); RED BLOOD COUNT 3.88 10*6/uL (4.10-5.10); RED CELL DISTRI WIDTH 12.8 % (0-14.5); WHITE BLOOD COUNT 7.9 10*3/uL (4.8-10.8)
[2017-05-29 06:13] LABS: ACT PARTIAL THROMBO TIME 21.7 SECONDS (20.8-31.5); INTERNATIONAL NORM RATIO 0.9 (2.0-3.5)
[2017-05-29 06:22] LABS: ALBUMIN 2.2 gm/dl (3.1-4.5); ALKALINE PHOSPHATASE 99 U/L (45-117); BUN 18 mg/dl (7-24); CHLORIDE 95 mmol/L (98-107); CHOLESTEROL 148 mg/dL (<200); CREATININE 0.92 mg/dL (0.55-1.02); HDL CHOLESTEROL 41 mg/dl (40-60); LDL CHOLESTEROL 72 mg/dL (9-159); MAGNESIUM 1.8 mg/dL (1.5-2.1); PHOSPHOROUS 4.2 mg/dL (2.5-4.9); POTASSIUM 3.9 mmol/L (3.5-5.1); SGOT/AST 15 IU/L (3-35); SODIUM 138 mmol/L (136-145); TOTAL PROTEIN 6.4 gm/dL (6.4-8.2); TRIGLYCERIDES 173 mg/dl (<150); TROPONIN I 0.042 ng/ml (<0.045); VLDL CHOLESTEROL 35 mg/dL (6-40)
[2017-05-29 06:34] LABS: SGPT/ALT 12 U/L (12-78); THYROID STIM HORMONE (HS) 0.869 uIU/ml (0.358-4.75)
--- NOTE | 2017-05-29 09:42 | NUR ---
Uniform Attendant in to talk to patient. Patient states lives at home with daughter. There are no steps in the home. Physician: none at present [facility] Home health services: none Patient's level of ADLs: MINIMAL ASSIST Patient has working utilities: all working DME: home oxygen, no portable tanks, cane and walker Follow-up physician's appointment after d/c: will be made by hospitalist nurse director upon discharge Does patient want to access PORTAL?: no Discharge plan discussed with patient, patient lives at home with daughter, she states she has a cane and walker that she uses, but isn't getting around very well, she has home oxyen that she was only to use at night, no portable tanks, doesn't remember that name of the company, discussed with her a short term senior living for rehab prior to going back home and patient wanted to think about it, case management will follow. WHIT CLARKE
--- NOTE | 2017-05-29 10:02 | NUR ---
PATIENT MEDICATED WITH PRN NORCO ORDERED FOR C/O ACHY/PRESSURE CHEST DISCOMFORT. NO OTHER COMPLAINTS AT THIS TIME. NO SXS OF DISTRESS. WILL MONITOR
--- NOTE | 2017-05-29 11:30 | NUR ---
PATIENT STATED SHE WAS FEELING "A LITTLE WEAK AND JUST NOT RIGHT" BLOOD SUGAR AT THIS TIME WAS 58. PATIENT STATES SHE KNEW THATS WHAT IT WAS. I GAVE HER 2 ORANGE JUICES. WILL RECHECK.
--- NOTE | 2017-05-29 12:27 | NUR ---
ECHO BEING DONE IN PATIENTS ROOM AT THIS TIME
--- NOTE | 2017-05-29 12:30 | NUR ---
PATIENT STATES SHE FEELS BETTER AT THIS TIME. BLOOD SUGAR IS 125. WILL CONTINUE TO MONITOR. NO COMPLAINTS AT THIS TIME.
[2017-05-29 14:15] LABS: VITAMIN D, 25-HYDROXY 23.9 ng/mL (30-100)
--- NOTE | 2017-05-29 14:23 | NUR ---
SPOKE TO DR. MOHAN IN REGARDS TO LEFT LEG IV. HE STATED IT IS STILL OKAY TO USE.
--- NOTE | 2017-05-29 15:06 | NUR ---
PATIENT MEDICATED WITH PRN NORCO ORDERED FOR C/O ACHY/PRESSURE CHEST DISCOMFORT. SHE HAS FAMILY AT THE BEDSIDE. NO FURTHER COMPLAINTS AT THIS TIME. WILL MONITOR.
--- NOTE | 2017-05-29 19:59 | NUR ---
SPOKE WITH TO CLARIFY ORDER FOR INDWELLING KRUGER CATHETER. INSTRUCTED TO CONTINUE CATHETER TO OBTAIN ACCURATE I&O.
--- NOTE | 2017-05-29 20:34 | NUR ---
PATIENT AWAKE IN BED, A&OX3. PATIENT STATES SHE FEELS SOB AT TIMES, NO S/S OF DISTRESS NOTED ON 3L NC. PT REQUESTING A BREATHING TREATMENT. RESPIRATORY CALLED AT THIS TIME. PATIENT DENIES ANY PAIN AT PRESENT TIME. WILL CONTINUE TO MONITOR. CALL LIGHT LEFT WITHIN REACH.
--- NOTE | 2017-05-29 20:46 | NUR ---
RESPIRATORY AT BEDSIDE TO ADMINISTER BREATHING TX.
--- NOTE | 2017-05-29 22:33 | NUR ---
PATIENT MEDICATED WITH PO NORCO AND PO VISTARIL FOR C/O BACK/CHEST ACHE WHICH SHE RATES 7/10 AND ANXIETY. WILL MONITOR EFFECTIVENESS. CALL LIGHT LEFT WITHIN REACH.
--- NOTE | 2017-05-29 23:16 | NUR ---
EARLIER MEDICATIONS EFFECTIVE PER PT. WILL CONTINUE TO MONITOR. CALL LIGHT IN REACH.
[2017-05-30] VITALS: BP 162/65
--- NOTE | 2017-05-30 06:03 | NUR ---
PATIENT REQUESTED AND RECEIVED PO VISTARIL AND PO NORCO FOR C/O ANXIETY AND CHEST ACHE/BACK PAIN 04/17. WILL MONITOR EFFECTIVENESS. CALL LIGHT LEFT WITHIN REACH.
[2017-05-30 06:55] LABS: BASO % 0.3 % (0.0-1.0); EOS # 0.2 10*3/uL (0.0-0.4); EOS % 1.9 % (1.0-4.0); HEMATOCRIT 32.9 % (37.0-47.0); HEMOGLOBIN 10.7 g/dl (12.0-16.0); LYMPH # 2.3 10*3/uL (1.3-4.4); LYMPH % 23.7 % (27.0-41.0); MEAN CELL VOLUME 89.9 fl (81.0-99.0); MEAN CORPUSCULAR HGB 29.2 pg (27.0-31.0); MEAN CORPUSCULAR HGB CONC 32.5 g/dl (33.0-37.0); MEAN PLATELET VOLUME 9.9 fl (9.6-12.3); MONO % 10.6 % (3.0-9.0); NEUT # 6.2 10*3/uL (2.3-7.9); NEUT % 63.2 % (47.0-73.0); PLATELET COUNT AUTOMATED 201 10*3/uL (130-400); RED BLOOD COUNT 3.66 10*6/uL (4.10-5.10); RED CELL DISTRI WIDTH 12.7 % (0-14.5); WHITE BLOOD COUNT 9.8 10*3/uL (4.8-10.8)
[2017-05-30 07:12] LABS: ALBUMIN 2.1 gm/dl (3.1-4.5); ALKALINE PHOSPHATASE 92 U/L (45-117); BUN 19 mg/dl (7-24); CHLORIDE 96 mmol/L (98-107); CREATININE 0.95 mg/dL (0.55-1.02); MAGNESIUM 1.7 mg/dL (1.5-2.1); POTASSIUM 4.2 mmol/L (3.5-5.1); SGOT/AST 18 IU/L (3-35); SGPT/ALT 11 U/L (12-78); SODIUM 137 mmol/L (136-145)
[2017-05-30 08:00] VITALS: BP 150/66
--- NOTE | 2017-05-30 09:00 | NUR ---
case management visits with patient, patient stated she was not feeling good this am and asked case management to come back, will see at a later time
--- NOTE | 2017-05-30 10:48 | NUR ---
PHYSICAL THERAPY PAtient requests no PT at this time. Thank you for this referral. Clotilde Witt,PT
[2017-05-30 12:00] VITALS: BP 130/54
--- NOTE | 2017-05-30 13:06 | NUR ---
MEDICATED WITH PRN PO NORCO FOR BACK AND CHEST PAIN.
--- NOTE | 2017-05-30 14:20 | NUR ---
PRN PO NORCO SOMEWHAT EFFECTIVE, PER PATIENT.
[2017-05-30 16:00] VITALS: BP 157/50
--- NOTE | 2017-05-30 17:17 | NUR ---
MEDICATED WITH PRN PO NORCO FOR BACK AND CHEST PAIN.
[2017-05-30 20:00] VITALS: BP 148/48
--- NOTE | 2017-05-30 20:00 | NUR ---
PATIENT RESTING IN ROOM. COOPERATIVE, ALERT AND ORIENTED X3. DENIES PAIN AT THIS TIME. FLAT AFFECT. SHE LIKES TO FAVOR HER RIGHT SIDE. I ADVISED HER TO CHANGE POSITIONS EVERY 2 HOURS AND SHE VERBALIZED UNDERSTANDING. CALL LIGHT IS IN REACH. WILL MONIOR.
--- NOTE | 2017-05-30 21:15 | NUR ---
PATIENT MEDICATED WITH PRN NORCO ORDERED FOR C/O CHEST PRESSURE/DISCOMFORT AND BACK PAIN RATED A 7.
--- NOTE | 2017-05-30 22:30 | NUR ---
EARLIER NORCO APPEARS EFFECTIVE. PATIENT IS SLEEPING IN BED, STILL FAVORING RIGHT SIDE. NO SXS OF DISTRESS AT THIS TIME. CALL LIGHT IN REACH. WILL MONITOR.
--- NOTE | 2017-05-30 22:37 | NUR ---
PATIENT MEDICATED WITH PRN NORCO ORDERED FOR COMPLAINTS OF CHEST PRESSURE/DISCOMFORT AND BACK PAIN RATED A 7.
--- NOTE | 2017-05-30 23:54 | NUR ---
EARLIER NORCO APPEARS EFFECTIVE. PATIENT IS SLEEPING IN ROOM, STILL FAVORING HER RIGHT SIDE. NO SXS OF DISTRESS AT THIS TIME. CALL LIGHT IN REACH.
[2017-05-31] VITALS: BP 143/68
--- NOTE | 2017-05-31 01:15 | NUR ---
PATIENT WAS MEDICATED WITH PRN NORCO ORDERED FOR C/O BACK AND CHEST PAIN AT A 7. NO FURTHER COMPLAINTS AT THIS TIME. WILL MONITOR. CALL LIGHT IN REACH
--- NOTE | 2017-05-31 02:30 | NUR ---
EARLIER NORCO APPEARS EFFECTIVE. PATIENT IS SLEEPING. NO SXS OF DISTRESS. CALL LIGHT IN REACH. WILL MONITOR.
--- NOTE | 2017-05-31 03:44 | NUR ---
PATIENT MEDICATED WITH PRN VISATRIL ORDERED FOR C/O ANXIETY. SHE IS SITTING UP IN BED AT THIS TIME WATCHING TV. NO FURTHER COMPLAINTS. WILL MONITOR.
--- NOTE | 2017-05-31 03:58 | NUR ---
PATIENT C/O FEELING "OFF" SAYS SHE IS JUST WEAK AND TIRED. I CHECKED HER BLOOD SUGAR AND IT WAS 109. SHE HAS HAD SEVERAL CUPS OF ORANGE JUICE THROUGHOUT THE NIGHT BECAUSE SHE STATES SHE KNOWS HER SUGAR WILL DROP. PATIENT IS ALERT AND ORIENTED. DENIES ANY SWEATS OR LIGHTHEADEDNESS. WILL CONTINUE TO MONIOR.
[2017-05-31 07:29] LABS: CREATININE 1.25 mg/dL (0.55-1.02); POTASSIUM 4.7 mmol/L (3.5-5.1)
[2017-05-31 07:37] LABS: BASO % 0.4 % (0.0-1.0); EOS # 0.1 10*3/uL (0.0-0.4); EOS % 1.7 % (1.0-4.0); HEMATOCRIT 33.2 % (37.0-47.0); HEMOGLOBIN 10.3 g/dl (12.0-16.0); LYMPH # 1.9 10*3/uL (1.3-4.4); LYMPH % 23.7 % (27.0-41.0); MEAN CORPUSCULAR HGB 29.1 pg (27.0-31.0); MEAN PLATELET VOLUME 9.9 fl (9.6-12.3); MONO # 0.9 10*3/uL (0.1-1.0); MONO % 10.5 % (3.0-9.0); NEUT # 5.2 10*3/uL (2.3-7.9); NEUT % 63.3 % (47.0-73.0); PLATELET COUNT AUTOMATED 196 10*3/uL (130-400); RED BLOOD COUNT 3.54 10*6/uL (4.10-5.10); RED CELL DISTRI WIDTH 12.7 % (0-14.5); WHITE BLOOD COUNT 8.2 10*3/uL (4.8-10.8)
[2017-05-31 07:38] LABS: MEAN CELL VOLUME 93.8 fl (81.0-99.0)
--- NOTE | 2017-05-31 07:52 | NUR ---
CHART CHECK COMPLETE.
[2017-05-31 08:00] VITALS: BP 146/48
--- NOTE | 2017-05-31 09:34 | NUR ---
case management visits with patient, again discussed with her a short term correction for rehab prior to going back home, patient stated that she had been at [facility] in the past and also recently at [facility], she stated that she would talk with her daughter and get back to case managment. asked if case management/school social worker could contact talk with her daughter and she stated she would talk with her, case management will follow
--- NOTE | 2017-05-31 09:35 | NUR ---
PHYSICAL THERAPY PAtient requsts no PT at this time. Thank you for this referral. Clotilde Witt,PT
--- NOTE | 2017-05-31 10:02 | NUR ---
VERBALLY NOTIFIED DR REYES OF NEW CONSULT FOR POSITIVE FTS.
--- NOTE | 2017-05-31 10:03 | NUR ---
NORCO 5/325 MG GIVEN FOR C/O BACK PAIN.
--- NOTE | 2017-05-31 11:47 | NUR ---
PHYSICAL THERAPY Patient receiving breathing treatment at this. Clotilde Witt,PT
[2017-05-31 12:00] VITALS: BP 128/52
--- NOTE | 2017-05-31 12:30 | NUR ---
DR GERARD RPOUNDED WITH DR REYES AND ROSARIO AND SEEN PT, ORDERS RECIEVED. DR GERARD AND DR REYES DISCUSSED WITH ME THAT PT WILL HAVE EGD AND COLO ON MONDAY AM. I JUST NEEDED TO CALL AND CHECK WITH DR GUEVARA R/T HOLDING PLAVIX.
--- NOTE | 2017-05-31 12:52 | NUR ---
PHYSICAL THERAPY PAtient evaluated on 4, full evaluation to follow. Continue with PT as per plan of care with fall, 02 ands acute debility as well as isolation precautions. Will require SNF for impaired mobility in order to return to home safely at [facility]. PAtient is high complexity via chart reviw, tests and evaluation: 39112. Thank you for this referral. Clotilde Cao,PT
--- NOTE | 2017-05-31 13:40 | NUR ---
SPOKE TO DR GUEVARA REGARDING HOLDING PLAVIX FOR EGD/COLO ON MONDAY WITH DR GERARD.DR GUEVARA STATED PT IS LOW/MODERATE RISK SO IT WILL BE FINE.
[2017-05-31 16:00] VITALS: BP 127/52
--- NOTE | 2017-05-31 19:52 | NUR ---
Shift chart check completed.24 HR chart check completed.
[2017-05-31 20:00] VITALS: BP 123/88
--- NOTE | 2017-05-31 20:00 | NUR ---
KRUGER CATHETER REMOVED AT PT'S INSISTENCE.
[2017-06-01] VITALS: BP 135/56
--- NOTE | 2017-06-01 03:02 | NUR ---
Requested and medicated with [place] at 0020 for complaints of pain, not severe, states maybe 4-5/10 in chest and back. Will continue to monitor.
[2017-06-01 06:59] LABS: BASO % 0.4 % (0.0-1.0); EOS # 0.1 10*3/uL (0.0-0.4); EOS % 1.7 % (1.0-4.0); HEMATOCRIT 35.9 % (37.0-47.0); HEMOGLOBIN 11.3 g/dl (12.0-16.0); LYMPH # 1.8 10*3/uL (1.3-4.4); LYMPH % 21.7 % (27.0-41.0); MEAN CELL VOLUME 93.2 fl (81.0-99.0); MEAN CORPUSCULAR HGB 29.4 pg (27.0-31.0); MEAN CORPUSCULAR HGB CONC 31.5 g/dl (33.0-37.0); MEAN PLATELET VOLUME 9.8 fl (9.6-12.3); MONO # 0.9 10*3/uL (0.1-1.0); MONO % 10.5 % (3.0-9.0); NEUT # 5.4 10*3/uL (2.3-7.9); NEUT % 65.3 % (47.0-73.0); PLATELET COUNT AUTOMATED 188 10*3/uL (130-400); RED BLOOD COUNT 3.85 10*6/uL (4.10-5.10); RED CELL DISTRI WIDTH 12.7 % (0-14.5); WHITE BLOOD COUNT 8.3 10*3/uL (4.8-10.8)
[2017-06-01 07:04] LABS: BUN 25 mg/dl (7-24); CHLORIDE 91 mmol/L (98-107); CREATININE 1.09 mg/dL (0.55-1.02); POTASSIUM 5.1 mmol/L (3.5-5.1); SODIUM 133 mmol/L (136-145)
--- NOTE | 2017-06-01 07:39 | NUR ---
BS at 0630 97. Anxious and nervous about BS being that low. 2 OJ, one with sugar and [place] popsicle given. Repeat BS at 0700 99. Still concern about it being low, explained we'd recheck. Will continue to monitor.
--- NOTE | 2017-06-01 07:43 | NUR ---
Requested and medicated with [place] at 0535 for complaints of chest and back pain rated as a 4-5/10. States no true relief from pain through the night. Did appear sleeping during checks through the night. Will continue to monitor.
[2017-06-01 08:00] VITALS: BP 139/57
--- NOTE | 2017-06-01 08:00 | NUR ---
PT IN BED WTIH EYES OPEN. N0 COMPLAINTS VOICED. CALL LIGHT WITHIN REACH,
--- NOTE | 2017-06-01 10:24 | NUR ---
PT MEDICATED WITH PRN NORCO PER PT REQUEST FOR COMPLAINT OF BACK PAIN. WILL CONTINUE TO MONITOR AND ASSESS.
--- NOTE | 2017-06-01 10:30 | NUR ---
Patient agreed to case management to a referral to [facility]. Contacted [facility] and faxed referral. Will fax OT eval for precert when available. Waiting on acceptance.
--- NOTE | 2017-06-01 11:00 | NUR ---
PER PT NORCO EFFECTIVE
[2017-06-01 12:00] VITALS: BP 115/55
--- NOTE | 2017-06-01 12:06 | NUR ---
OT evaluation completed on 4th floor with full eval to follow. Precautions: O2, acute debility, dyspmneia with min exertion. Patient score moderate complexity level. Reccomend SNF to increase independence with ADLs. Thank you for this referral. Alecia Condon OTR/L
--- NOTE | 2017-06-01 13:12 | NUR ---
PHYSICAL THERAPY Alma Delia seen this PM for her physical therapy session and was takled into her gait. Transfer supine/sit CGA X 1, sitting balance CG X 1, no LOB, X 5 min. Sit/stand and up on wheeled walker standing balance MIN A X 1. Then gait with W/W 42' X 1, with o2 at 3 L, did not get SOB with this, no LOB verbal cueing for gait, walker, turn safety and was glad that she went after it was all over. Pt back supine in bed, call light bedalarm on, treatment time 16 min. SHIRA BENJAMIN PHOTOENGRAVING PROOFER.
--- NOTE | 2017-06-01 13:26 | NUR ---
Marely from [facility] stated they will accept this patient and will check insurance for one-time contract since they are out of network, but have taken her in the past. Faxed OT evaluation for precert. waiting on auth
--- NOTE | 2017-06-01 14:16 | NUR ---
PASS/RR completed online in [facility] system for [facility]
--- NOTE | 2017-06-01 14:16 | NUR ---
Notified Marely at [facility] to please start precert for possible discharge Monday or Monday.
[2017-06-01 16:00] VITALS: BP 141/54
--- NOTE | 2017-06-01 18:00 | NUR ---
ENCOURAGING PATIENT TO DRINK MIRLAX AT THIS TIME.
[2017-06-01 20:00] VITALS: BP 141/50
--- NOTE | 2017-06-01 20:49 | NUR ---
PT. RESTING IN BED. HEP LOCK IN LEFT LOWER LEG ASYMPT. LUNGS DIMINISHED BILAT, PULSE OX 97% ON 3L NC. ABDOMEN SOFTLY DISTENDED AND NORMO. TRACE BLE EDEMA NOTED. DRINKING PREP FOR COLONOSCOPY. KAE PERRY RN
--- NOTE | 2017-06-01 21:59 | NUR ---
NORCO GIVEN ORDERED FOR COMPLAINTS OF PAIN
--- NOTE | 2017-06-01 23:41 | NUR ---
PT. STATED NORCO WAS EFFECTIVE. KAE PERRY RN
[2017-06-02] VITALS (10 sets, daily range): BP systolic 86–135; BP diastolic 38–68
[2017-06-02 05:48] LABS: BASO % 0.3 % (0.0-1.0); BUN 21 mg/dl (7-24); CHLORIDE 89 mmol/L (98-107); CREATININE 1.06 mg/dL (0.55-1.02); EOS # 0.1 10*3/uL (0.0-0.4); EOS % 1.8 % (1.0-4.0); HEMATOCRIT 33.1 % (37.0-47.0); HEMOGLOBIN 10.4 g/dl (12.0-16.0); LYMPH # 1.6 10*3/uL (1.3-4.4); LYMPH % 24.3 % (27.0-41.0); MEAN CELL VOLUME 91.9 fl (81.0-99.0); MEAN CORPUSCULAR HGB 28.9 pg (27.0-31.0); MEAN CORPUSCULAR HGB CONC 31.4 g/dl (33.0-37.0); MEAN PLATELET VOLUME 9.7 fl (9.6-12.3); MONO # 0.8 10*3/uL (0.1-1.0); MONO % 12.4 % (3.0-9.0); NEUT # 4.1 10*3/uL (2.3-7.9); NEUT % 60.9 % (47.0-73.0); PLATELET COUNT AUTOMATED 182 10*3/uL (130-400); POTASSIUM 5.3 mmol/L (3.5-5.1); RED CELL DISTRI WIDTH 12.6 % (0-14.5); SODIUM 132 mmol/L (136-145); WHITE BLOOD COUNT 6.7 10*3/uL (4.8-10.8)
--- NOTE | 2017-06-02 06:08 | NUR ---
NORCO GIVEN ORDERED FOR ABD PAIN. KAE PERRY RN
--- NOTE | 2017-06-02 06:11 | NUR ---
FLEETS ENEMA GIVEN WITH POOR RESULTS. PT. HAS NOT MOVED BOWELS ONE TIME DURING THE NIGHT. KAE PERRY RN
--- NOTE | 2017-06-02 08:25 | NUR ---
Shift chart check completed.
--- NOTE | 2017-06-02 08:26 | NUR ---
NOTIFIED DR PONCE THAT PATIENT'S COLO PREP AND FLEET'S ONLY PRODUCED LIQUID. NO STOOL. PATIENT STATES NO SOLID FOOD IN A FEW DAYS.
--- NOTE | 2017-06-02 12:30 | NUR ---
NOTIFIED DR Ash MOHAN THAT PATIENT HAS A TEMP OF 100.2. HE ADVISED TO NOTIFY DR GERARD. CALLED DR GERARD IN OR. THEY ADVISED HE WAS IN A PROCEDURE AND WILL LET HIM KNOW.
--- NOTE | 2017-06-02 12:41 | NUR ---
Received authorization for patient to go to [facility]. Can go when medically stable, will notify hospitalists.
--- NOTE | 2017-06-02 13:16 | NUR ---
PHYSICAL THERAPY Alma Delia seen for her therapy session, said that she feels like crap today and was going bacy to sleep. Daughter present and said that she did not know whats going on with her Mom. SHIRA BENJAMIN GUM WORKER.
--- NOTE | 2017-06-02 14:04 | NUR ---
PHYSICAL THERAPY CO-SIGN I approve of the Phyical Therapy notes written above. KAREY VILLALPANDO PT
--- NOTE | 2017-06-02 20:00 | NUR ---
ASSUMED CARE OF PATIENT. ASSESSMENT COMPLETE. RESTING IN BED. CALL LIGHT IN REACH. WILL CONTINUE TO MONITOR.
--- NOTE | 2017-06-02 21:08 | NUR ---
SPOKE TO DR CRUZ REGARDING PT NOT RECEIVING LASIX. HE STATES HE WILL TAKE A LOOK AT HER CHART
--- NOTE | 2017-06-02 21:18 | NUR ---
MEDICATED WITH PRN NORCO FOR C/O LOWER BACK PAIN. RATES 04/17.
--- NOTE | 2017-06-02 22:36 | NUR ---
PER PATIENT, EARLIER NORCO EFFECTIVE
[2017-06-03] VITALS: BP 128/46
--- NOTE | 2017-06-03 02:00 | NUR ---
SLEEPING. RESP EASY AND NONLABORED ON 3L NC. NO DISTRESS NOTED. CALL LIGHT IN REACH. WILL CONTINUE TO MONITOR.
--- NOTE | 2017-06-03 05:58 | NUR ---
MEDICATED WITH PRN NORCO PER PT REQUEST FOR C/O BACK PAIN. RATES 04/17.
[2017-06-03 06:54] LABS: CREATININE 1.46 mg/dL (0.55-1.02); POTASSIUM 5.3 mmol/L (3.5-5.1)
[2017-06-03 08:00] VITALS: BP 141/50
--- NOTE | 2017-06-03 10:13 | NUR ---
PATIENT C/O CHRONIC BACK AND FEET PAIN. MEDICATED WITH NORCO PER PRN ORDER. WILL CONTINUE TO MONITOR.
[2017-06-03 12:00] VITALS: BP 153/55
--- NOTE | 2017-06-03 15:20 | NUR ---
PATIENT C/O CHRONIC BACK AND FEET PAIN AGAIN AT THIS TIME. ALSO C/O FEELING ANXIOUS. MEDICATED WITH NORCO AND VISTARIL PER PRN ORDERS. WILL CONTINUE TO MONITOR.
[2017-06-03 16:00] VITALS: BP 127/50
[2017-06-03 20:00] VITALS: BP 139/55; BP 178/85
--- NOTE | 2017-06-03 20:56 | NUR ---
PATIENT LYING IN BED ON RIGHT SIDE. IV INTACT IN LEFT LOWER LEG. TRACE EDEMA NOTED TO LOWER LEG. PATIENT WITH HYPOACTIVE BOWEL SOUNDS, STATES THAT SHE HAS NOT HAD BM IN SEVERAL DAYS.
[2017-06-04] VITALS: BP 140/55
--- NOTE | 2017-06-04 00:39 | NUR ---
PATIENT REQUESTED NORCO FOR PAIN IN HER BACK. MEDICATION GIVEN PER ORDER.
--- NOTE | 2017-06-04 00:39 | NUR ---
BACK PAIN WAS A 9 ON SCALE 1/10.
--- NOTE | 2017-06-04 01:25 | NUR ---
PAIN MEDICATION WAS EFFECTIVE, PAIN SUBSIDED. 5 ON SCALE 1/10.
--- NOTE | 2017-06-04 03:30 | NUR ---
PATIENT LYING IN BED MOST OF THE NIGHT ON HER RIGHT SIDE D/T IV BEING ON OUTSIDE OF LEFT LEG. NO S/S OF DISTRESS.0XYGEN INTACT, RESPIRATIONS ARE EASY.
[2017-06-04 04:00] VITALS: BP 136/55
[2017-06-04 05:53] LABS: BASO % 0.7 % (0.0-1.0); EOS # 0.1 10*3/uL (0.0-0.4); EOS % 2.1 % (1.0-4.0); HEMOGLOBIN 10.2 g/dl (12.0-16.0); LYMPH # 1.3 10*3/uL (1.3-4.4); LYMPH % 22.5 % (27.0-41.0); MEAN CELL VOLUME 92.5 fl (81.0-99.0); MEAN CORPUSCULAR HGB 29.5 pg (27.0-31.0); MEAN CORPUSCULAR HGB CONC 31.9 g/dl (33.0-37.0); MEAN PLATELET VOLUME 9.8 fl (9.6-12.3); MONO # 0.8 10*3/uL (0.1-1.0); MONO % 14.3 % (3.0-9.0); NEUT # 3.4 10*3/uL (2.3-7.9); NEUT % 59.7 % (47.0-73.0); PLATELET COUNT AUTOMATED 193 10*3/uL (130-400); RED BLOOD COUNT 3.46 10*6/uL (4.10-5.10); RED CELL DISTRI WIDTH 12.5 % (0-14.5); WHITE BLOOD COUNT 5.7 10*3/uL (4.8-10.8)
[2017-06-04 06:02] LABS: CREATININE 1.3 mg/dL (0.55-1.02); POTASSIUM 5.5 mmol/L (3.5-5.1)
[2017-06-04 08:00] VITALS: BP 150/68
--- NOTE | 2017-06-04 08:29 | NUR ---
PATIENT C/O CHRONIC BACK PAIN. MEDICATED WITH NORCO PER PRN ORDER. WILL CONTINUE TO MONITOR.
[2017-06-04 12:00] VITALS: BP 155/75
[2017-06-04 16:00] VITALS: BP 154/44
[2017-06-04 20:00] VITALS: BP 168/56
--- NOTE | 2017-06-04 20:11 | NUR ---
PATIENT LYING IN BED ON RIGHT SIDE, COMPLAINING OF BACK PAIN. ENCOURAGED PATIENT TO CHANGE POSITION. HEPLOCK INTACT ON LEFT LOWER LEG. TRACE PEDAL EDEMA NOTED, LEG PINK AND WARM. OXYGEN INTACT VIA NC.
--- NOTE | 2017-06-04 21:45 | NUR ---
PAIN MEDICATION EFFECTIVE, PAIN SUBSIDED, PATIENT RESTING IN BED.
--- NOTE | 2017-06-04 22:32 | NUR ---
PATIENT LYING IN BED REQUESTED PAIN MEDICATIO, TYLNOL GIVEN AT 2100. PATIENT REQUESTED BOX LUNCH, GIVEN.
--- NOTE | 2017-06-04 22:34 | NUR ---
PATIENT GIVEN PAIN MEDICATIONAS REQUESTED FOR PAIN OF 9 ON SCALE OF 1/10.
[2017-06-05] VITALS: BP 156/60
[2017-06-05 04:00] VITALS: BP 158/64
[2017-06-05 05:50] LABS: CREATININE 1.15 mg/dL (0.55-1.02); POTASSIUM 5.4 mmol/L (3.5-5.1)
[2017-06-05 08:00] VITALS: BP 150/87
[2017-06-05] MEDS ORDERED: FAMOTIDINE20 M1 PO (09:17)
[2017-06-05] MEDS ORDERED: Carafate1 GM PO (09:17)
[2017-06-05] MEDS ORDERED: B12,B-12,B 12500 MC1 PO (09:17)
[2017-06-05] MEDS ORDERED: HYDROXYZINE PAM25 M1 PO (09:17)
--- NOTE | 2017-06-05 09:18 | NUR ---
Patient had auth to go to [facility] over the weekend, however since patient was not discharged we will need to restart the precert prior to her going to [facility]. Will require up to date PT and OT notes, will fax when available for precert.
--- NOTE | 2017-06-05 10:02 | NUR ---
PHYSICAL THERAPY Alma Delia seen this AM and ask if i could come back later. When i came back Pt getting her OT treatment. SHIRA BENJAMIN PERMASTONE INSTALLER.
--- NOTE | 2017-06-05 10:42 | NUR ---
PT SEEN THIS AM FOR 1:1 IN ROOM OT. PT SLEEPING WHEN REEVES ENTERED THE ROOM BUT WOKE UP AND AGREED TO THERAPY. PT C/O PAIN IN BACK, FEET, LEGS BUT NO NUMERICAL RATING GIVEN. TRANSFER FROM BED TO BSC USING BED RAIL FOR BALANCE AT SBA. TOILETING AT MIN A FOR CLOTHING MANAGEMENT DURING HYGIENE USING BED RAIL FOR BALANCE. PT WASHED FACE AT EOB WITH SET UP ASSIST. LB DRESSING AT MOD A TO THREAD BLE INTO UNDERWEAR AND PANTS AND TO STAND AT FWW TO DON OVER HIPS. REEVES EDUCATED PT ON USE OF CONTROL INSPECTOR FOR LB DRESSING BUT PATIENT DECLINED. UB DRESSING AT MIN A TO DON SHIRT OVER TRUNK. PT C/O FATIGUE AT THIS TIME AND WANTING TO LAY DOWN. MIN A TO BRING BLE INTO BED. PT WOULD BENEFIT FROM SKILLED SERVICES TO INCREASE ACTIVITY ENDURANCE, INDEPENDENCE IN ADLS AND BLANCE. TOTAL TIME WITH PATIENT:24 MINS. CONTINUE CURRENT OT PLAN OF CARE. LALA JUNIOR/Yuan
--- NOTE | 2017-06-05 11:07 | NUR ---
patient has received authorization to go to [facility]
--- NOTE | 2017-06-05 11:17 | NUR ---
asbestos hazard abatement worker made arrangements with [facility] to transport patient to [facility]'s snf. Transport time 12:30pm.
--- NOTE | 2017-06-05 11:24 | NUR ---
Message left on daughter Iraida's voice mail informing her of discharge to [facility] and time of transport. [facility] to transport at 12:30pm.
--- NOTE | 2017-06-05 11:28 | NUR ---
PHYSICAL THERAPY Back to seen Mrs Cadena and talked into her gait. Pt on 3 L o2, gait with o2. Transfer supine/sit CGA X 1, sitting balance supervision x 1, sit/stand and up on wheeled walker CGA X 1. Gait total 50' X 1, wheeled walker and MIN A X 1, no LOB just gets SOB with her gait. Pt back supine in bed to rest. SHIRA BENJAMIN HEALTH PROMOTER.
--- NOTE | 2017-06-05 11:28 | NUR ---
PAPERS SIGNED AND IV ACCESS REMOVED. THE PATIENT IS MS. ALL BELONGINGS READY FOR DC. FAMILY CALLED AND NOTIFIED OF DC. NO CONCERNS FROM [facility] AT THIS TIME.
--- NOTE | 2017-06-05 11:42 | NUR ---
PATIENT REPORT CALLED TO NURSE BAILEY AT [facility]. THE NURSE WAS GIVEN HX OF PATIENT, CARE GIVEN AT [facility], AND UPDATED PATIENT CONDITION. NO CONCERNS FROM BAILEY OR PATIENT AT THIS TIME.
[2017-06-05 12:00] VITALS: BP 124/97
--- NOTE | 2017-06-05 12:49 | NUR ---
Discharge instructions reviewed with patient/family. Patient receptive and verbalizes understanding. Follow-up care arranged. Written instructions given to patient/family. CHEKO BETANCOURT
--- NOTE | 2017-06-05 13:39 | NUR ---
PHYSICAL THERAPY CO-SIGN I approve of the Phyical Therapy notes written above. KAREY VILLALPANDO PT
--- NOTE | 2017-06-06 08:02 | NUR ---
OCCUPATIONAL THERAPY CO-SIGN I approve of the Occupational Therapy notes written above. LACIE SLAUGHTER
== END 2017-06-05 12:49 | disposition other institution (70) | DRG 292 ==
LOC: ED 11:20 → EDHOLD 12:39 → 4E 12:39
PROVIDERS: Emergency Medicine; Family Medicine; Internal Medicine; Internal Medicine Nephrology; ADMIT Emergency Medicine
PROC: 0DJD8ZZ Inspection of Lower Intestinal Tract, Via Natural or Artificial Opening Endoscopic (ICD-10-PCS; principal; 2017-06-02)
PROC: 0DJ08ZZ Inspection of Upper Intestinal Tract, Via Natural or Artificial Opening Endoscopic (ICD-10-PCS; 2017-06-02)
DX: I11.0 Hypertensive heart disease with heart failure (principal); J96.10 Chronic respiratory failure, unspecified whether with hypoxia or hypercapnia; E44.0 Moderate protein-calorie malnutrition; E11.51 Type 2 diabetes mellitus with diabetic peripheral angiopathy without gangrene; E11.65 Type 2 diabetes mellitus with hyperglycemia; I25.810 Atherosclerosis of coronary artery bypass graft(s) without angina pectoris; Z68.41 Body mass index [BMI] 40.0-44.9, adult; K29.70 Gastritis, unspecified, without bleeding; E87.8 Other disorders of electrolyte and fluid balance, not elsewhere classified; E66.01 Morbid (severe) obesity due to excess calories; D72.9 Disorder of white blood cells, unspecified; D72.810 Lymphocytopenia; J44.9 Chronic obstructive pulmonary disease, unspecified; F32.9 Major depressive disorder, single episode, unspecified; F41.9 Anxiety disorder, unspecified; Z96.642 Presence of left artificial hip joint; K21.0 Gastro-esophageal reflux disease with esophagitis; K59.00 Constipation, unspecified; K64.8 Other hemorrhoids; G47.33 Obstructive sleep apnea (adult) (pediatric); E78.5 Hyperlipidemia, unspecified; Z88.5 Allergy status to narcotic agent; Z87.891 Personal history of nicotine dependence; Z79.4 Long term (current) use of insulin; Z79.1 Long term (current) use of non-steroidal anti-inflammatories (NSAID); Z79.899 Other long term (current) drug therapy; Z95.1 Presence of aortocoronary bypass graft; I25.2 Old myocardial infarction; Z82.49 Family history of ischemic heart disease and other diseases of the circulatory system; Z99.81 Dependence on supplemental oxygen; Z90.49 Acquired absence of other specified parts of digestive tract; Z98.51 Tubal ligation status; Z83.3 Family history of diabetes mellitus

== ENCOUNTER 2017-06-27 12:10 | Inpatient (IN) | payer OTHER ==
[~2017-06-27] VITALS: Ht 165.1 cm; Wt 122.1 kg
[~2017-06-27 12:10] MED LIST changes: +B12,B-12,B 12500 MC1 PO; +Carafate1 GM PO; +FAMOTIDINE20 M1 PO; +HYDROXYZINE PAM25 M1 PO
[2017-06-27 12:12] VITALS: BP 195/78
--- NOTE | 2017-06-27 12:56 | NUR ---
PT PLACED OM BIPAP 09/13 35% O2 SPO2 100% AT THIS TIME PT IN NO APPARENT DISTRESS AT THIS TIME
[2017-06-27 13:08] LABS: BASO % 0.3 % (0.0-1.0); EOS # 0.2 10*3/uL (0.0-0.4); EOS % 1.8 % (1.0-4.0); HEMATOCRIT 34.3 % (37.0-47.0); LYMPH # 1.1 10*3/uL (1.3-4.4); LYMPH % 11.1 % (27.0-41.0); MEAN CELL VOLUME 99.1 fl (81.0-99.0); MEAN CORPUSCULAR HGB 28.9 pg (27.0-31.0); MEAN CORPUSCULAR HGB CONC 29.2 g/dl (33.0-37.0); MEAN PLATELET VOLUME 9.3 fl (9.6-12.3); MONO # 0.9 10*3/uL (0.1-1.0); MONO % 9.1 % (3.0-9.0); NEUT # 7.5 10*3/uL (2.3-7.9); NEUT % 77.3 % (47.0-73.0); PLATELET COUNT AUTOMATED 176 10*3/uL (130-400); RED BLOOD COUNT 3.46 10*6/uL (4.10-5.10); RED CELL DISTRI WIDTH 13.3 % (0-14.5); WHITE BLOOD COUNT 9.7 10*3/uL (4.8-10.8)
[2017-06-27 13:17] LABS: ACT PARTIAL THROMBO TIME 23.4 SECONDS (20.8-31.5); INTERNATIONAL NORM RATIO 0.9 (2.0-3.5)
[2017-06-27 13:25] LABS: ALBUMIN 2.3 gm/dl (3.1-4.5); ALKALINE PHOSPHATASE 83 U/L (45-117); BUN 28 mg/dl (7-24); CHLORIDE 98 mmol/L (98-107); CPK 47 U/L (26-192); CREATININE 0.73 mg/dL (0.55-1.02); LIPASE 295 U/L (73-393); MAGNESIUM 2.2 mg/dL (1.5-2.1); POTASSIUM 4.4 mmol/L (3.5-5.1); SGOT/AST 11 IU/L (3-35); SGPT/ALT 23 U/L (12-78); SODIUM 140 mmol/L (136-145); TOTAL PROTEIN 6.1 gm/dL (6.4-8.2); TROPONIN I 0.036 ng/ml (<0.045)
--- NOTE | 2017-06-27 13:45 | NUR ---
PT IS REQUESTING THAT BIPAP BE REMOVED,SHE FEELS ANXIOUS. PULSE OX ON BIPAP NOW IS 99% PT REMAINS ALERT. SIMON DELANEY
[2017-06-27 14:08] VITALS: BP 139/97
[2017-06-27] MEDS ORDERED: OSCAL/D,OYSTER250 MG PO (15:41)
[2017-06-27] MEDS ORDERED: CYMBALTA60 MG PO (15:46)
[2017-06-27] MEDS ORDERED: CYMBALTA30 MG PO (15:48)
[2017-06-27] MEDS ORDERED: LASIX40 MG PO (15:49)
[2017-06-27] MEDS ORDERED: LISINOPRIL5 MG PO (15:50)
[2017-06-27] MEDS ORDERED: DALI500T PO (15:51)
[2017-06-27] MEDS ORDERED: DUONEB 3 MG/3 ML3 M1 INH (15:52)
[2017-06-27] MEDS ORDERED: PREDNISONE10 MG PO (15:55)
--- NOTE | 2017-06-27 15:55 | NUR ---
MED LIST REVIEWED PER POLICY. LIST OF MEDS PROVIDED FROM [facility].
[2017-06-27 16:00] VITALS: BP 137/92
--- NOTE | 2017-06-27 16:07 | NUR ---
DOCTOR CORTEZ INFORMED PATIENT'S MED LIST IS UP TO DATE
--- NOTE | 2017-06-27 18:59 | NUR ---
DR BIRD NOTIFIED RESPIRATORY NEEDS AN ORDER IN FOR THE BIPAP SO THEY CAN COME UP AND HOOK IT UP TO PATIENT
--- NOTE | 2017-06-27 19:06 | NUR ---
PATIENT GIVEN PRN NORCO FOR COMPLAINTS OF LEG AND LOWER BACK PAIN, RATING 7/10. CALL LIGHT WITHIN REACH, NO OTHER COMPLAINTS AT THIS TIME.
[2017-06-27 20:00] VITALS: BP 193/62
[2017-06-28] VITALS: BP 144/69
--- NOTE | 2017-06-28 00:01 | NUR ---
PATIENT MEDICATED WITH PRN NORCO FOR ALL OVER PAIN AND DISCOMFORT. PAIN RATED 7/10. PATIENT ENCOURAGED TO CHANGE POSITIONS AND LAY ON HER LEFT TO RELIEVE THE PRESSURE FROM HER RIGHT ELBOW. AREA IS RED PATIENT EDUCATED ON THE IMPORTANCE OF POSITIONAL CHANGES TO PREVENT PRESSURE ULCERS.
--- NOTE | 2017-06-28 00:45 | NUR ---
PATIENT STATED NORCO HELPED A LITTLE, RATES PAIN 6.5/10
--- NOTE | 2017-06-28 05:30 | NUR ---
PATIENT MEDICATED FOR CHRONIC BACK PAIN RATED 7/10. WILL MONITOR.
--- NOTE | 2017-06-28 06:10 | NUR ---
PATIENT STATED NORCO ISN'T REALLY HELPING HER PAIN. SHE IS NOT SATISFIED, TOLD HER TO DISCUSS HER OPTIONS WITH HER PHYSICIAN.
[2017-06-28 06:56] LABS: BUN 29 mg/dl (7-24); CHLORIDE 95 mmol/L (98-107); PHOSPHOROUS 2.7 mg/dL (2.5-4.9); POTASSIUM 4.5 mmol/L (3.5-5.1); SODIUM 136 mmol/L (136-145)
[2017-06-28 06:59] LABS: BASO % 0.2 % (0.0-1.0); HEMATOCRIT 36.1 % (37.0-47.0); LYMPH # 0.6 10*3/uL (1.3-4.4); LYMPH % 10.3 % (27.0-41.0); MEAN CORPUSCULAR HGB 28.9 pg (27.0-31.0); MEAN CORPUSCULAR HGB CONC 30.5 g/dl (33.0-37.0); MEAN PLATELET VOLUME 9.6 fl (9.6-12.3); MONO # 0.3 10*3/uL (0.1-1.0); MONO % 5.3 % (3.0-9.0); NEUT % 83.4 % (47.0-73.0); PLATELET COUNT AUTOMATED 170 10*3/uL (130-400); RED BLOOD COUNT 3.81 10*6/uL (4.10-5.10); RED CELL DISTRI WIDTH 13.2 % (0-14.5)
[2017-06-28 07:00] LABS: MEAN CELL VOLUME 94.8 fl (81.0-99.0)
[2017-06-28 07:28] LABS: ACT PARTIAL THROMBO TIME 21.6 SECONDS (20.8-31.5)
[2017-06-28 08:00] VITALS: BP 140/80
--- NOTE | 2017-06-28 08:02 | NUR ---
[facility] and is a precert to return. Will need PT and OT orders/evals to start precert.
--- NOTE | 2017-06-28 09:00 | NUR ---
Seo Assistant in to talk to patient. Patient states lives at home with daughter. There are few steps in the home. Physician: [facility] Home health services: none Patient's level of ADLs: MODERATE ASSIST Patient has working utilities: all working DME: walker, home oxygen and portable tank Follow-up physician's appointment after d/c: will be made by hospitalist nurse director upon discharge Does patient want to access PORTAL?: no Discharge plan discussed with patient, patient lives at home with her daughter, but has been at [facility] for skilled care, patient states she wants to return to [facility] and continue her rehab, service planner will contact [facility] and see if patient is able to return when discharged. WHIT CLARKE
--- NOTE | 2017-06-28 10:00 | NUR ---
NORCO GIVEN FOR C/O GENERALIZED DISCOMFORT. WILL MONITOR.
--- NOTE | 2017-06-28 11:00 | NUR ---
Occupational Therapy evaluation attempted this am. Patient pleasantly declined with c/o not sleeping well last night and not feeling well enough for eval. OTR will attempt in pm. today. Thank you for this referral. Monserrat Lugo OTR/L
--- NOTE | 2017-06-28 11:00 | NUR ---
PHYSICAL THERAPY Pnt declined PT evaluation this am as not feeling well and unable to participate in evaluation. Will attempt again this afternoon. Neelam Kent, PT
--- NOTE | 2017-06-28 11:05 | NUR ---
NORCO HELPING PER PT. WILL CONTINUE TO MONITOR.
[2017-06-28 12:00] VITALS: BP 176/52
--- NOTE | 2017-06-28 13:17 | NUR ---
Patient declined offer of OT evaluation in pm. She c/o severe SOB and inability to tolerate therapy this date. OTR will recheck at a later date. Case management informed of above. Thank you for this referral. Monserrat Lugo OTR/L
--- NOTE | 2017-06-28 13:21 | NUR ---
PHYSICAL THERAPY Pnt declined PT admission again this pm. Will attempt again tomorrow. Neelam Kent, PT
[2017-06-28 16:00] VITALS: BP 166/56
--- NOTE | 2017-06-28 17:22 | NUR ---
NOTIFIED DANA ROOT THAT PT HAD A RUN OF V-TACH. PT IS NOW ACK IN NSR. PT IS ASYMPTOMATIC.
[2017-06-28 20:00] VITALS: BP 156/65
--- NOTE | 2017-06-28 20:16 | NUR ---
PATIENT GIVEN NORCO FOR COMPLAINTS OF LEG HIP AND BACK PAIN.05/18.
--- NOTE | 2017-06-28 21:15 | NUR ---
PATIENT STATED THAT PAIN MEDICATION WAS EFFECTIVE.
--- NOTE | 2017-06-28 21:51 | NUR ---
ASKED PATIENT IF SHE WAS GOING TO WEAR BIPAP SHE SAID SHE NEVER WEARS IT.
[2017-06-29] VITALS: BP 168/82
--- NOTE | 2017-06-29 | NUR ---
ASSUMED CARE OF PATIENT. ASSESSMENT COMPLETE. RESTING IN BED. CALL LIGHT IN REACH. WILL CONTINUE TO MONITOR.
--- NOTE | 2017-06-29 02:16 | NUR ---
MEDICATED WITH PRN NORCO FOR C/O PAIN "MY BACK, MY LEGS, MY FEET, MY STOMACH" RATES 04/17.
--- NOTE | 2017-06-29 06:22 | NUR ---
MEDICATED WITH PRN NORCO FOR C/O PAIN "ALL OVER" RATES 04/17
[2017-06-29 08:03] LABS: HEMATOCRIT 39.2 % (37.0-47.0); LYMPH % 12.6 % (27.0-41.0); MEAN CELL VOLUME 93.6 fl (81.0-99.0); MEAN CORPUSCULAR HGB 28.6 pg (27.0-31.0); MEAN CORPUSCULAR HGB CONC 30.6 g/dl (33.0-37.0); MEAN PLATELET VOLUME 9.6 fl (9.6-12.3); MONO # 0.5 10*3/uL (0.1-1.0); MONO % 6.5 % (3.0-9.0); NEUT # 6.5 10*3/uL (2.3-7.9); NEUT % 80.3 % (47.0-73.0); PLATELET COUNT AUTOMATED 207 10*3/uL (130-400); RED BLOOD COUNT 4.19 10*6/uL (4.10-5.10); RED CELL DISTRI WIDTH 13.3 % (0-14.5); WHITE BLOOD COUNT 8.2 10*3/uL (4.8-10.8)
[2017-06-29 08:13] LABS: BUN 34 mg/dl (7-24); CHLORIDE 89 mmol/L (98-107); CREATININE 0.91 mg/dL (0.55-1.02); POTASSIUM 4.3 mmol/L (3.5-5.1); SODIUM 133 mmol/L (136-145)
--- NOTE | 2017-06-29 08:13 | NUR ---
NOTIFIED DR. REYES THAT PT WAS C/O CHEST PAIN. NEW ORDERS GIVEN.
[2017-06-29 08:45] VITALS: BP 170/78
--- NOTE | 2017-06-29 09:10 | NUR ---
PHYSICAL THERAPY PAtient evaluated on 4, full evaluation to follow. Continue with PT as per plan of care with fall, acute debility and 02 precuations. Will require SNF for impaired mobility. PAtient is moderate complexity via chart review, tests and evaluation: 60039. Thank you for this referral. Clotilde Witt,PT
--- NOTE | 2017-06-29 09:20 | NUR ---
Occupational Therapy evaluation completed this date on 4 with full eval to follow. Precautions include fall risk, SOB w/ min exertion, O2 dep, IV UE, moderate complexity 47309. Recommend OT per POC and SNF upon d/c to enable safe return home at [facility]. Thank you for this referral. Monserrat Lugo OTR/L
--- NOTE | 2017-06-29 10:27 | NUR ---
Patient progress notes and therapies faxed to [facility] to start precert for return. Waiting on precert.
[2017-06-29 12:00] VITALS: BP 176/58
--- NOTE | 2017-06-29 14:51 | NUR ---
MEDICATED PO NORCO FOR C/O BACK, LEG AND FEET PAIN. RATES PAIN 8/10.
[2017-06-29 16:00] VITALS: BP 133/89
[2017-06-29 20:00] VITALS: BP 166/73
--- NOTE | 2017-06-29 20:20 | NUR ---
PATIENT MEDICATED WITH NORCO FOR C/O GENERALIZED DISCOMFORT. RATED PAIN A 8/10 WITH 10 BEING THE WORST. REINFORCED USE OF CALL LIGHT.
--- NOTE | 2017-06-29 22:15 | NUR ---
PATIENT RESTING QUIETLY . NO FURTHER C/O VOICED
[2017-06-30] VITALS: BP 166/75
--- NOTE | 2017-06-30 01:36 | NUR ---
DR. DE JESUS NOTIFIED OF 5 BEAT RUN OF V TACH. WILL CONTINUE TO MONITOR.
--- NOTE | 2017-06-30 03:41 | NUR ---
PATIENT MEDICATED WITH NORCO PER PRN ORDER FOR C/O GENERALIZED DISCOMFORT.RATED PAIN A 8/10 WITH 10 BEING THE WORST. SEE EMAR. REINFORCED USE OF CALL LIGHT.
[2017-06-30 06:25] LABS: HEMATOCRIT 36.6 % (37.0-47.0); HEMOGLOBIN 11.3 g/dl (12.0-16.0); LYMPH # 0.7 10*3/uL (1.3-4.4); LYMPH % 10.5 % (27.0-41.0); MEAN CELL VOLUME 92.7 fl (81.0-99.0); MEAN CORPUSCULAR HGB 28.6 pg (27.0-31.0); MEAN CORPUSCULAR HGB CONC 30.9 g/dl (33.0-37.0); MEAN PLATELET VOLUME 9.4 fl (9.6-12.3); MONO # 0.5 10*3/uL (0.1-1.0); MONO % 7.4 % (3.0-9.0); NEUT # 5.5 10*3/uL (2.3-7.9); NEUT % 81.7 % (47.0-73.0); PLATELET COUNT AUTOMATED 183 10*3/uL (130-400); RED BLOOD COUNT 3.95 10*6/uL (4.10-5.10); RED CELL DISTRI WIDTH 13.3 % (0-14.5); WHITE BLOOD COUNT 6.8 10*3/uL (4.8-10.8)
[2017-06-30 06:40] LABS: BUN 31 mg/dl (7-24); CHLORIDE 90 mmol/L (98-107); CREATININE 0.85 mg/dL (0.55-1.02); PHOSPHOROUS 3.2 mg/dL (2.5-4.9); POTASSIUM 4.4 mmol/L (3.5-5.1); SODIUM 133 mmol/L (136-145)
[2017-06-30 08:00] VITALS: BP 158/86
--- NOTE | 2017-06-30 10:42 | NUR ---
PHYSICAL THERAPY Alma Delia was seen this AM and said not now, later afternoon. SHIRA [address] BAILIFF.
[2017-06-30 12:00] VITALS: BP 134/70
[2017-06-30 16:00] VITALS: BP 159/64
--- NOTE | 2017-06-30 16:27 | NUR ---
PATIENT MEDICATED WITH PO NORCO FOR PAIN 7/10 ALL OVER
--- NOTE | 2017-06-30 17:27 | NUR ---
PATIENT STATES MEDICATION EFFECTIVE
[2017-06-30 20:00] VITALS: BP 180/68
--- NOTE | 2017-06-30 20:17 | NUR ---
PRN NORCO GIVEN FOR PT COMPLAINTS OF FEET, LEGS, BACK AND HEAD PAIN RATING IT A 9 OUT OF 10. CALL LIGHT WITHIN REACH, WILL MONITOR
--- NOTE | 2017-06-30 21:30 | NUR ---
PRN NORCO SOMEWHAT EFFECTIVE PER PT
[2017-07-01] VITALS: BP 162/58
--- NOTE | 2017-07-01 00:11 | NUR ---
PRN NORCO GIVEN FOR PT COMPLAINTS OF CONTINUED PAIN IN THE FEET, LEGS, BACK AND HEAD RATING IT AN 8 OUT OF 10. CALL LIGHT WITHIN REACH, WILL MONITOR
--- NOTE | 2017-07-01 01:30 | NUR ---
PRN MEDICATION APPEARS EFFECTIVE, PT SLEEPING
[2017-07-01 05:34] LABS: BUN 29 mg/dl (7-24); CHLORIDE 92 mmol/L (98-107); CREATININE 0.77 mg/dL (0.55-1.02); SODIUM 135 mmol/L (136-145)
[2017-07-01 05:35] LABS: POTASSIUM 5.4 mmol/L (3.5-5.1)
[2017-07-01 08:00] VITALS: BP 158/68
[2017-07-01 12:00] VITALS: BP 164/58
[2017-07-01] MEDS ORDERED: LEVAQUIN750 M1 PO (12:11)
[2017-07-01] MEDS ORDERED: PREDNISONE10 MG PO (12:11)
--- NOTE | 2017-07-01 17:16 | NUR ---
PT ANXIOUS AND TEARFUL , PT UPSET AND STATED SHE "DIDN'T WANT TO LEAVE". MEDICATED HER WITH VISTARIL 25 MG.
--- NOTE | 2017-07-01 17:36 | NUR ---
NORCO 5/325 MG GIVEN FOR C/O GENERALIZED BACK PAIN,07/18.
--- NOTE | 2017-07-01 17:52 | NUR ---
Discharge instructions reviewed with patient/family. Patient receptive and verbalizes understanding. Follow-up care arranged. Written instructions given to patient/family.TELEMETRY ACCOUNTED FOR AND HEPLOCK REMOVED. SRINIVASAN HARGROVE
--- NOTE | 2017-07-01 18:21 | NUR ---
NORCO 5/325 MG GIVEN FOR C/O GENERALIZED PAIN,07/18.
--- NOTE | 2017-07-03 08:01 | NUR ---
PHYSICAL THERAPY CO-SIGN I approve of the Phyical Therapy notes written above. KAREY VILLALPANDO PT
== END 2017-07-01 17:52 | disposition home or self-care (01) | DRG 291 ==
LOC: ED 12:10 → 4E 14:06 → EDHOLD 14:06 → 4E 14:21
PROVIDERS: Emergency Medicine; Family Medicine; Student in an Organized Health Care Education/Training Program; ADMIT Internal Medicine
DX: I11.0 Hypertensive heart disease with heart failure (principal); E43 Unspecified severe protein-calorie malnutrition; J96.10 Chronic respiratory failure, unspecified whether with hypoxia or hypercapnia; E11.51 Type 2 diabetes mellitus with diabetic peripheral angiopathy without gangrene; Z95.1 Presence of aortocoronary bypass graft; Z99.81 Dependence on supplemental oxygen; J44.1 Chronic obstructive pulmonary disease with (acute) exacerbation; Z68.42 Body mass index [BMI] 45.0-49.9, adult; I50.23 Acute on chronic systolic (congestive) heart failure; Z96.642 Presence of left artificial hip joint; E83.41 Hypermagnesemia; G47.33 Obstructive sleep apnea (adult) (pediatric); E66.01 Morbid (severe) obesity due to excess calories; E11.65 Type 2 diabetes mellitus with hyperglycemia; F32.9 Major depressive disorder, single episode, unspecified; F41.9 Anxiety disorder, unspecified; K21.9 Gastro-esophageal reflux disease without esophagitis; I25.10 Atherosclerotic heart disease of native coronary artery without angina pectoris; E78.5 Hyperlipidemia, unspecified; Z79.4 Long term (current) use of insulin; Z79.899 Other long term (current) drug therapy; Z90.49 Acquired absence of other specified parts of digestive tract; Z98.51 Tubal ligation status; Z82.49 Family history of ischemic heart disease and other diseases of the circulatory system; Z83.3 Family history of diabetes mellitus; Z88.5 Allergy status to narcotic agent; Z91.040 Latex allergy status; Z68.34 Body mass index [BMI] 34.0-34.9, adult; D53.9 Nutritional anemia, unspecified; I25.2 Old myocardial infarction

== ENCOUNTER 2017-07-25 14:13 | Inpatient (IN) | payer OTHER ==
[~2017-07-25] VITALS: Ht 165.1 cm; Wt 120.7 kg
[2017-07-25] VITALS (7 sets, daily range): BP systolic 144–162; BP diastolic 55–75
--- NOTE | ~2017-07-25 | CON ---
[place], [place] REPORT OF CONSULTATION NAME: DESTINY MARADIAGA UNIT #: [id number] ROOM: 427 DOCTOR: JT GUEVARA MD BIRTHDATE: [birth year] DOS: 07/27/2017 HISTORY OF PRESENT ILLNESS: The patient with multiple hospitalizations for diastolic heart failure. She was just discharged from the [facility]. The patient came back with significant shortness of breath. According to the daughter, she is being placed on Lasix 60 mg daily while in the [facility]. She was just discharged last, her Lasix reduced, shortness of breath got worse since that time. The patient also has possibly of orthopnea and paroxysmal nocturnal dyspnea. The patient got admitted with the same diagnosis of congestive heart failure. PAST MEDICAL HISTORY: 1. Chronic heart failure, systolic and diastolic. 2. Respiratory failure. 3. Diabetes. 4. Hypertension. 5. Hyperlipidemia. 6. History of sleep apnea. 7. COPD. 8. History of myocardial infarction. 9. Pleural effusion. 10. Protein calorie malnutrition. SURGICAL HISTORY: 1. Cholecystectomy. 2. Hip replacement. 3. Bypass surgery. FAMILY HISTORY: Positive for coronary artery disease. ALLERGIES: LATEX AND MORPHINE. HOME MEDICATIONS: 1. Atorvastatin. 2. Carvedilol. 3. Clopidogrel. 4. Insulin. 5. Lisinopril. 6. Lasix. 7. Sucralfate. REVIEW OF SYSTEMS: CONSTITUTIONAL: Denies any fever or chills. HEENT: No visual disturbances or hearing problems. CARDIOVASCULAR: Reports chest heaviness and shortness of breath. RESPIRATORY: Significant shortness of breath and cough. ABDOMEN: Denies any abdominal pain. GENITOURINARY: No dysuria, hematuria. NEUROLOGIC: Appears to be stable. ENDOCRINE: Intact. [place], [place] REPORT OF CONSULTATION NAME: DESTINY MARADIAGA UNIT #: [id number] ROOM: 427 DOCTOR: JT GUEVARA MD BIRTHDATE: [birth year] PHYSICAL EXAMINATION: NECK: Elevated JVD. LUNGS: Diminished air entry bilaterally, dyspnea on exertion. HEART: Heart sounds are regular. ABDOMEN: Soft, nontender. NEUROLOGICAL: Stable. EXTREMITIES: No clubbing, no cyanosis, no edema. LABORATORY DATA: Sodium 136, potassium 4.2, creatinine is 0.87, hemoglobin 10.6, hematocrit 35.3. IMPRESSION: 1. Congestive heart failure. 2. Diabetes mellitus. 3. Hypertension. 4. Coronary artery disease. 5. Oxygen dependency. 6. Sleep apnea. 7. Chronic obstructive pulmonary disease. 8. The patient's Is and Os are negative at 1600 hours today. RECOMMENDATIONS: Continue the present care. Continue fluid restriction. We will review the echocardiogram. Continue IV diuretics as ordered. We will consider an outpatient stress test if it is not done for more than a year. We will review the echocardiogram. JT GUEVARA MD CM:CONSTR:REPORT OF CONSULTATION 0613 08/04/17 1439 interface
[~2017-07-25 14:13] MED LIST changes: +CYMBALTA30 MG PO; +CYMBALTA60 MG PO; +DALI500T PO; +DUONEB 3 MG/3 ML3 M1 INH; +LASIX40 MG PO; +LEVAQUIN750 M1 PO; +LISINOPRIL5 MG PO; +OSCAL/D,OYSTER250 MG PO
[2017-07-25 15:00] LABS: BASO % 0.3 % (0.0-1.0); EOS # 0.1 10*3/uL (0.0-0.4); EOS % 1.7 % (1.0-4.0); HEMATOCRIT 34.1 % (37.0-47.0); HEMOGLOBIN 10.7 g/dl (12.0-16.0); LYMPH # 1.3 10*3/uL (1.3-4.4); LYMPH % 21.9 % (27.0-41.0); MEAN CELL VOLUME 92.9 fl (81.0-99.0); MEAN CORPUSCULAR HGB 29.2 pg (27.0-31.0); MEAN CORPUSCULAR HGB CONC 31.4 g/dl (33.0-37.0); MEAN PLATELET VOLUME 10.2 fl (9.6-12.3); MONO # 0.5 10*3/uL (0.1-1.0); MONO % 8.9 % (3.0-9.0); NEUT % 66.9 % (47.0-73.0); PLATELET COUNT AUTOMATED 268 10*3/uL (130-400); RED BLOOD COUNT 3.67 10*6/uL (4.10-5.10); RED CELL DISTRI WIDTH 13.2 % (0-14.5)
[2017-07-25 15:25] LABS: ALBUMIN 1.8 gm/dl (3.1-4.5); BUN 19 mg/dl (7-24); CHLORIDE 101 mmol/L (98-107); POTASSIUM 5.1 mmol/L (3.5-5.1); SGOT/AST 39 IU/L (3-35); SGPT/ALT 20 U/L (12-78); SODIUM 140 mmol/L (136-145)
[2017-07-25 15:28] LABS: ALKALINE PHOSPHATASE 89 U/L (45-117)
--- NOTE | 2017-07-25 16:25 | NUR ---
PT EATING DINNER TRAY---ДМИТРИЙ ROGER RN
--- NOTE | 2017-07-25 16:49 | NUR ---
PT MEDICATED WITH NORCO FOR C/O ALL OVER PAIN,IQRA ABDOMEN AND CHEST SHE STATES.PT IS EATING HER DINNER AT THIS TIME.SHE IS BEING ADMITTED.FAMILY IS AT BEDSIDE----ДМИТРИЙ ROGER RN
--- NOTE | 2017-07-25 17:32 | NUR ---
MEDICATIONS VERIFIED VIA PHRAMACY
--- NOTE | 2017-07-25 18:03 | NUR ---
SPOKE WITH DR. GUEVARA REGARDING CONSULT. ORDERED ECHO AND WILL SEE THE PATIENT IN THE MORNING.
--- NOTE | 2017-07-25 18:03 | NUR ---
A 67, admitted to , under the services of CHRIS Newman DO with a diagnosis of CHF. Chief complaint is SOB. Patient arrived via ambulance from ER. Monitor applied. Initial assessment completed. Vital signs taken and recorded. CHRIS NEWMAN DO notified of admission to the unit. Orders received. See assessment for past medical history, medications and allergies. Patient and/or family oriented to unit. [facility] visitation policy reviewed. Clothing/patient valuable form completed. TERELL DAHL
--- NOTE | 2017-07-25 19:52 | NUR ---
24 HR chart check completed.
--- NOTE | 2017-07-25 21:28 | NUR ---
PRN PERCOCET GIVEN FOR PAIN RATED 7/10, "ALL OVER" PER PATIENT. WILL MONITOR.
[2017-07-26] VITALS: BP 137/64
--- NOTE | 2017-07-26 02:12 | NUR ---
PRN NORCO GIVEN PER PATIENT REQUEST FOR CHRONIC PAIN. RESPIRATORY CONTACTED PER PATIENT REQUEST FOR A BREATHING TREATMENT. WILL MONITOR.
[2017-07-26 06:09] LABS: BASO % 0.2 % (0.0-1.0); EOS # 0.1 10*3/uL (0.0-0.4); EOS % 1.9 % (1.0-4.0); HEMATOCRIT 35.3 % (37.0-47.0); HEMOGLOBIN 10.6 g/dl (12.0-16.0); LYMPH # 1.6 10*3/uL (1.3-4.4); LYMPH % 27.2 % (27.0-41.0); MEAN CELL VOLUME 93.6 fl (81.0-99.0); MEAN CORPUSCULAR HGB 28.1 pg (27.0-31.0); MEAN PLATELET VOLUME 9.2 fl (9.6-12.3); MONO # 0.5 10*3/uL (0.1-1.0); MONO % 8.8 % (3.0-9.0); NEUT # 3.6 10*3/uL (2.3-7.9); NEUT % 61.6 % (47.0-73.0); PLATELET COUNT AUTOMATED 215 10*3/uL (130-400); RED BLOOD COUNT 3.77 10*6/uL (4.10-5.10); RED CELL DISTRI WIDTH 13.2 % (0-14.5); WHITE BLOOD COUNT 5.8 10*3/uL (4.8-10.8)
[2017-07-26 06:23] LABS: BUN 21 mg/dl (7-24); CHLORIDE 97 mmol/L (98-107); MAGNESIUM 2.1 mg/dL (1.5-2.1); POTASSIUM 4.2 mmol/L (3.5-5.1); SGOT/AST 10 IU/L (3-35); SGPT/ALT 19 U/L (12-78); SODIUM 136 mmol/L (136-145)
[2017-07-26 06:24] LABS: ALKALINE PHOSPHATASE 99 U/L (45-117); CREATININE 0.87 mg/dL (0.55-1.02); PHOSPHOROUS 3.2 mg/dL (2.5-4.9); TOTAL PROTEIN 5.9 gm/dL (6.4-8.2)
--- NOTE | 2017-07-26 06:53 | NUR ---
NORCO IS SOMEWHAT EFFECTIVE. PATIENT STATES "IT'S TAKING THE EDGE OFF."
[2017-07-26 08:00] VITALS: BP 138/64
--- NOTE | 2017-07-26 09:15 | NUR ---
Deputy Director Of Nursing in to talk to patient. Patient states lives at home with daughter. There are few steps in the home. Physician: babak doe [facility]acy: [facility] Home health services: doesn't remember Patient's level of ADLs: MODERATE ASSIST Patient has working utilities: all working DME: home oxygen, protable tanks Follow-up physician's appointment after d/c: will be made by hospitalist nurse director upon discharge Does patient want to access PORTAL?: no Discharge plan discussed with patient, patient lives at home with daughter, she was discharged from [facility] about one week ago and has not been doing well at home, discussed with her going back to [facility] for more rehab and patient was inagreement. shoe lay out planner will send referral to [facility]. patient will need an insurance precert prior to going. WHIT CLARKE
--- NOTE | 2017-07-26 10:00 | NUR ---
PT GIVEN PRN NORCO FOR PAIN. WILL CONTINUE TO MONITOR
[2017-07-26 12:00] VITALS: BP 156/68
--- NOTE | 2017-07-26 12:55 | NUR ---
PHYSICAL THERAPY PAtient evaluated on 4, full evaluation to follow. Continue with PT as per plan of care with fall, 02 and acute debilty precautions. Significant dyspneia with minimal exertion. May require SNF for impaired mobility in order to return to PLOF. PAtient is moderate complexity via chart review, tests and evaluation: 44182. Thank you for this referral. jolynn Witt,PT
--- NOTE | 2017-07-26 13:58 | NUR ---
Occupational Therapy evaluation completed this date on 4 with full eval to follow. Precautions include fall risk, obesity,O2 dep,IV UE, SOB w/ min exertion, moderate complexity level 94443. Recommend OT per POC and SNF upon d/c. Thank you for this referral. Monserrat Lugo OTR/l
--- NOTE | 2017-07-26 14:22 | NUR ---
PT GIVEN NORCO FOR PAIN. THE PAIN MEDICATION SEEMS TO HELP FOR ABOUT 2 TO 3 HOURS AND NEEDS IT SOON SHE CAN HAVE IT. WILL CONTINUE TO MONITOR AND TEACH THE PT ON DIFFERENT WAYS TO CONTROL PAIN.
--- NOTE | 2017-07-26 14:24 | NUR ---
Patient requested referral be made to [facility], contacted [facility] and faxed all clinicals for referral, will require precert if accepted. snf order needed.
[2017-07-26 16:00] VITALS: BP 164/60
--- NOTE | 2017-07-26 19:30 | NUR ---
PT. IS RESTING IN BED COMFORTABLY AT THIS TIME. HOB ELEVATED, NASAL CANNULA IN NOSE, AND CALL LIGHT IN REACH. SEE SHIFT ASSESSMENT.
[2017-07-26 20:00] VITALS: BP 159/49
--- NOTE | 2017-07-26 21:27 | NUR ---
PRN NORCO GIVEN PER PT. REQUEST FOR GENERALIZED PAIN. WILL CONTINUE TO MONITOR.
--- NOTE | 2017-07-26 22:00 | NUR ---
PRN NORCO SEEMS TO BE EFFECTIVE, PT. HAS NO C/O PAIN AT THIS TIME.
[2017-07-27] VITALS: BP 155/55
--- NOTE | 2017-07-27 00:21 | NUR ---
NORCO GIVEN PER ORDER FOR TRISTAN RATED "8" MID CHEST,UPPER STOMACH, BACK AND NEUROPATHY PER PT. SEE MAR.
--- NOTE | 2017-07-27 04:52 | NUR ---
MEDICATED WITH NORCO FOR C/O CHEST & STOMACH PAIN RATED AN 8/10.
--- NOTE | 2017-07-27 05:00 | NUR ---
PRN NORCO SEEMS TO BE EFFECTIVE, PT. IS RESTING COMFORTABLE, NASAL CANNULA IN NOSE, RESPERS EASY AND REGULAR. CALL LIGHT IN REACH WITH HOB ELEVATED.
--- NOTE | 2017-07-27 05:19 | NUR ---
24 HR chart check completed.
[2017-07-27 06:17] LABS: BASO % 0.2 % (0.0-1.0); EOS # 0.1 10*3/uL (0.0-0.4); EOS % 2.1 % (1.0-4.0); HEMATOCRIT 34.2 % (37.0-47.0); HEMOGLOBIN 10.6 g/dl (12.0-16.0); LYMPH # 1.5 10*3/uL (1.3-4.4); LYMPH % 27.5 % (27.0-41.0); MEAN CELL VOLUME 91.4 fl (81.0-99.0); MEAN CORPUSCULAR HGB 28.3 pg (27.0-31.0); MEAN PLATELET VOLUME 9.2 fl (9.6-12.3); MONO # 0.5 10*3/uL (0.1-1.0); MONO % 9.3 % (3.0-9.0); NEUT # 3.4 10*3/uL (2.3-7.9); NEUT % 60.2 % (47.0-73.0); PLATELET COUNT AUTOMATED 232 10*3/uL (130-400); RED BLOOD COUNT 3.74 10*6/uL (4.10-5.10); RED CELL DISTRI WIDTH 13.3 % (0-14.5); WHITE BLOOD COUNT 5.6 10*3/uL (4.8-10.8)
--- NOTE | 2017-07-27 06:18 | NUR ---
DR. GUEVARA IN TO SEE PT. SEE NEW ORDERS.
[2017-07-27 06:32] LABS: ALBUMIN 1.9 gm/dl (3.1-4.5); ALKALINE PHOSPHATASE 92 U/L (45-117); BUN 24 mg/dl (7-24); CHLORIDE 96 mmol/L (98-107); CREATININE 0.91 mg/dL (0.55-1.02); POTASSIUM 4.2 mmol/L (3.5-5.1); SGOT/AST 13 IU/L (3-35); SGPT/ALT 16 U/L (12-78); SODIUM 136 mmol/L (136-145); TOTAL PROTEIN 5.8 gm/dL (6.4-8.2)
[2017-07-27 08:00] VITALS: BP 143/58
--- NOTE | 2017-07-27 10:00 | NUR ---
JOANIE ALDRIDGE IN TO SEE PT AND SPOKE WITH DR. GUEVARA. THE PATIENT HAD A STRESS TEST IN JANUARY 2017 SO A STRESS TEST FOR THIS ADMISSION STAY IS NOT RECOMMENDED. DR. GUEVARA HAS CLEARED THE PATIENT FOR DC AND JOANIE ALDRIDGE STATED THAT ONCE THE PATIENT HAS BEEN CLEARED FOR SNF PLACEMENT AT [facility] THE PATIENT WILL BE DC.
--- NOTE | 2017-07-27 10:25 | NUR ---
PHYSICAL THERAPY Patient presented to therapy with report of feeling tired and and having no energy. Patient is on spO2. Patient performed supine to sitting at EOB with Independently. Patient transfered sit to stand Independently. Patient performed transfer to bedside chair with Supervision. Patient refused gait. Patient then performed seated ther ex x 20 reps in all planes of mvmt. Patient was 1:1 with this DRILLING MANAGER for 24 minutes. Murphy De La Rosa DRILLING MANAGER
--- NOTE | 2017-07-27 12:53 | NUR ---
Patient has been accepted by [facility], starting precert today. Waiting for auth.
--- NOTE | 2017-07-27 14:24 | NUR ---
PHYSICAL THERAPY Patient refused therapy x 2 due to not feeling well. This is for the PM treatment. Murphy De La Rosa ELECTROFORMER
[2017-07-27 16:00] VITALS: BP 145/47
[2017-07-27 20:00] VITALS: BP 153/56
[2017-07-28] VITALS: BP 146/50
--- NOTE | 2017-07-28 01:15 | NUR ---
24 HR chart check completed.
--- NOTE | 2017-07-28 01:48 | NUR ---
PAIN MEDICATION REQUESTED FOR PAIN IN BACK, 05/18. GIVEN PER ORDER.
--- NOTE | 2017-07-28 02:30 | NUR ---
PAIN MEDICATION EFFECTIVE, PAIN 5/10
--- NOTE | 2017-07-28 07:14 | NUR ---
Patient has received authorization to go to [facility] and can go today if medically stable for discharge.
[2017-07-28 08:00] VITALS: BP 134/57
[2017-07-28] MEDS ORDERED: LASIX40 MG PO (08:28)
--- NOTE | 2017-07-28 09:08 | NUR ---
Patient is being discharged to [facility], transportation scheduled for 11:00 am with [facility]. NH, nursing notified. Left voicemail on daughters cell phone. unable to contact
--- NOTE | 2017-07-28 11:22 | NUR ---
Discharge instructions reviewed with patient/family. Patient receptive and verbalizes understanding. Follow-up care arranged. Written instructions given to patient/family. Nurse to nurse called to [facility] and spoke to Marisol. Patient was transported by [facility]. EVELINE REAGAN
--- NOTE | 2017-07-28 14:17 | NUR ---
PHYSICAL THERAPY CO-SIGN I approve of the Phyical Therapy notes written above. KAREY VILLALPANDO PT
== END 2017-07-28 11:22 | disposition other institution (70) | DRG 291 ==
LOC: ED 14:13 → 4E 16:17 → EDHOLD 16:17 → 4E 16:35
PROVIDERS: Physician Assistant; Registered Nurse; ADMIT Internal Medicine
DX: I50.23 Acute on chronic systolic (congestive) heart failure (principal); E43 Unspecified severe protein-calorie malnutrition; Z99.81 Dependence on supplemental oxygen; J96.10 Chronic respiratory failure, unspecified whether with hypoxia or hypercapnia; J44.9 Chronic obstructive pulmonary disease, unspecified; E11.51 Type 2 diabetes mellitus with diabetic peripheral angiopathy without gangrene; Z68.41 Body mass index [BMI] 40.0-44.9, adult; I50.32 Chronic diastolic (congestive) heart failure; I11.0 Hypertensive heart disease with heart failure; Z95.1 Presence of aortocoronary bypass graft; E11.65 Type 2 diabetes mellitus with hyperglycemia; G47.33 Obstructive sleep apnea (adult) (pediatric); F41.9 Anxiety disorder, unspecified; E66.01 Morbid (severe) obesity due to excess calories; K21.9 Gastro-esophageal reflux disease without esophagitis; F32.9 Major depressive disorder, single episode, unspecified; E78.2 Mixed hyperlipidemia; E55.9 Vitamin D deficiency, unspecified; I25.10 Atherosclerotic heart disease of native coronary artery without angina pectoris; D53.9 Nutritional anemia, unspecified; Z96.642 Presence of left artificial hip joint; Z79.4 Long term (current) use of insulin; Z88.5 Allergy status to narcotic agent; Z91.040 Latex allergy status; Z90.49 Acquired absence of other specified parts of digestive tract; Z98.51 Tubal ligation status; Z87.891 Personal history of nicotine dependence; Z82.49 Family history of ischemic heart disease and other diseases of the circulatory system; Z83.3 Family history of diabetes mellitus; I25.2 Old myocardial infarction; Z79.899 Other long term (current) drug therapy

== ENCOUNTER 2017-07-31 03:42 | Inpatient (IN) | payer OTHER ==
[2017-07-31] VITALS (7 sets, daily range): BP systolic 131–192; BP diastolic 52–76
[~2017-07-31] VITALS: Ht 160 cm; Wt 120.7 kg
--- NOTE | ~2017-07-31 | PR ---
[place], [place] PROGRESS NOTE NAME: DESTINY MARADIAGA [facility] #: [id number] UNIT #: [id number] ROOM: 309 DOCTOR: Elli CORTES,NATALIE BIRTHDATE: [birth year] DOS: 08/04/2017 SUBJECTIVE: The patient seen and spoke with the staff. Per staff, the patient is doing well. No visual problems or issues. Medication compliant, slept well. The patient was pleasant and cooperative. She was in her bed. She was sleeping. She got up when I called her name. She reports doing well. Denied depressed mood or hopelessness. Denied any other neurovegetative signs and symptoms of depression. She reports good sleep and appetite. MENTAL STATUS EXAMINATION: Pleasant, cooperative. Described her mood as "good." Affect, mood congruent. Thought process goal directed. No flight of ideas or loosening of association. She denied auditory or visual hallucination. No delusion or paranoia noted. She denied suicidal ideation, intent or plan. She also denied homicidal ideation, intent or plan. Insight and judgment fair. ASSESSMENT: 1. Major depressive disorder, recurrent without psychotic feature. 2. Delirium secondary to general medical condition (resolved). PLAN: 1. Continue current medication and care. 2. Continue redirection. 3. Discharge planning. NATALIE CORTES MD CM:BRAD [id number] Elli CORTES 08/04/17 1049 interface
--- NOTE | ~2017-07-31 | PR ---
[place], [place] PROGRESS NOTE NAME: DESTINY MARADIAGA [facility] #: [id number] UNIT #: [id number] ROOM: 309 DOCTOR: Elli CORTES,NATALIE BIRTHDATE: [birth year] DOS: 08/03/2017 PSYCHIATRIC PROGRESS NOTE SUBJECTIVE: Patient seen and spoke with the staff. Per staff, patient is doing well. No behavioral problems or issues. Med compliant. Patient was pleasant, cooperative. She was in her room with her family by the bed. She reports doing well mood braga. Denied depressed mood or hopelessness. Denied any other neurovegetative signs and symptoms of depression. She reports good sleep and appetite. MENTAL STATUS EXAMINATION: Pleasant, cooperative. Described her mood as "good." Affect, mood congruent. Thought process goal directed. No flight of ideas, loosening of association. She denied auditory or visual hallucination. No delusion or paranoia noted. She denied suicidal ideation, intent or plan. She also denied any homicidal ideation, intent or plan. Insight and judgment fair. ASSESSMENT: 1. Major depressive disorder, recurrent without psychotic feature. 2. Delirium secondary to general medical condition, resolved. PLAN: 1. Continue current medication and care. 2. Continue redirection. 3. Discharge planning. NATALIE CORTES MD CM:BRAD [phone] Elli CORTES 08/04/17 0247 interface
--- NOTE | ~2017-07-31 | PR ---
[place], [place] PROGRESS NOTE NAME: DESTINY MARADIAGA [facility] #: [id number] UNIT #: [id number] ROOM: 309 DOCTOR: Elli CORTES,NATALIE BIRTHDATE: [birth year] DOS: 08/01/2017 PSYCHIATRIC PROGRESS NOTE SUBJECTIVE: The patient seen and spoke with the staff. Per staff, no visual problems or issues. Medication compliant. She slept all night. The patient was on her bed. She reports doing okay, but complains about right eye hurting. She has been taking her medication regularly and denies any side effect from the medication. She denied any problems with sleep or appetite. MENTAL STATUS EXAMINATION: The patient was pleasant, cooperative, described her mood as." Affect, mood congruent. Thought process goal directed. No flight of ideas or loosening of association. She denied auditory or visual hallucination. No delusion or paranoia noted. She denied suicidal ideation, intent or plan. She also denied homicidal ideation, intent or plan. PLAN: 1. Continue current medication and care. 2. Continue redirection. 3. Griffin milieu. NATALIE CORTES MD CM:BRAD [phone] Elli CORTES 08/01/172341 interface
--- NOTE | ~2017-07-31 | WRIGHTHP ---
[place], [place] PATIENT HISTORY AND PHYSICAL EXAM NAME: DESTINY MARADIAGA [facility] #: [id number] UNIT #: [id number] ROOM: 310 DOCTOR: Elli CORTESANAIBAIRON BIRTHDATE: [birth year] DOS: 07/31/2017 REASON FOR HOSPITALIZATION: Increased depression and psychosis. HISTORY OF PRESENT ILLNESS: The patient seen and chart reviewed. A 67-year-old female who came to the ER for increased depression and confusion. The patient was actually in a intermediate where she started feeling increasingly depressed and experiencing acute psychosis as visual hallucination. The patient was sent to the ER and then from there after medical clearance, she got admitted to the psychiatric floor. The patient was pleasant and cooperative during the interview. She reports being depressed and down for a long time and mentioned that for the last one month, her depression has been getting worse everyday. When asked about the stress, she talked about losing family members and she mentioned that all of her loved one are dying slowly. Her recent was her oldest daughter's who was 35-year-old. She also talked about son being in the fci and her kids are having financial issues. The patient mentioned that current medication is Cymbalta that she has been taking is not helping her. She said she took the Lexapro in the past and that helped her significantly. The patient reports being depressed down, sad, hopeless, helpless with lack of energy and motivation. She currently denied any psychosis, denied any symptoms of ana or hypomania. PAST MEDICAL HISTORY: Significant for chronic systolic heart failure, congestive heart failure, COPD, coronary artery disease, hyperlipidemia, obstructive sleep apnea, history of pleural effusion and vitamin D deficiency. PAST PSYCHIATRIC HISTORY: The patient denies any prior psychiatric hospitalization. No prior suicide attempts, no suicide in the family. Denied having any gun at home. SUBSTANCE ABUSE HISTORY: The patient denies any drugs or alcohol. HISTORY: She was born and raised in [place], 9 grade education, once, , have four kids. She has been living with her youngest daughter. She had good relationship with her. She also mentioned that she is in and out of the hospital and the rehab facility for the past 1 year. She denied any history of physical or sexual abuse. MENTAL STATUS EXAMINATION: The patient was pleasant and cooperative, described her mood as "depressed." Affect was flat. Thought process goal directed. No flight of ideas, loosening of associations. She denied auditory or visual hallucination. No delusion or paranoia noted. She denied suicidal ideation, intent or plan. She also denied homicidal ideation, intent or plan. Insight and judgment fair. ASSESSMENT: Major depressive disorder, recurrent without psychotic feature, currently very depressed. [place], [place] PATIENT HISTORY AND PHYSICAL EXAM NAME: DESTINY MARADIAGA UNIT #: [id number] ROOM: 310 DOCTOR: Elli CORTES,NATALIE BIRTHDATE: [birth year] PLAN: 1. I will discontinue her Cymbalta. 2. I will discontinue Vistaril. 3. I will start her Lexapro 10 mg in the morning. The patient mentioned that she took Lexapro in the past with good result. 4. Continue redirection. 5. Collateral information. 6. Griffin milieu. NATALIE CORTES MD CM:HISPHYS:PATIENT HISTORY AND PHYSICAL EXAMINATION 22 43 Elli CORTES 07/31/[id number] interface
--- NOTE | ~2017-07-31 | PR ---
[place], [place] PROGRESS NOTE NAME: DESTINY MARADIAGA [facility] #: [id number] UNIT #: [id number] ROOM: 309 DOCTOR: Elli CORTES,NATALIE BIRTHDATE: [birth year] DOS: 08/02/2017 PSYCHIATRIC PROGRESS NOTE SUBJECTIVE: The patient seen and the spoke with the staff. Per staff, the patient is doing well. No behavior problems or issues. Medication compliant. The patient was pleasant, cooperative during the interview. Two of her daughters were in the room. The patient reports doing well. Denied any depressed mood or hopelessness. Denied any other neurovegetative signs and symptoms of depression. She denied any psychotic symptoms also. She is happy that she will be able to go back to the rehab center and work on her recovery. The patient's family also agreed with that plan and they did not express any safety concern for the patient or anyone else. MENTAL STATUS EXAMINATION: Pleasant, cooperative, describes mood as "good." Affect, mood congruent. Thought process goal directed. No flight of ideas or loosening of association. She denied auditory or visual hallucination. No delusions or paranoia noted. She denied suicidal ideation, intent or plan. She also denied any homicidal ideation, intent or plan. Insight and judgment fair. ASSESSMENT: 1. Major depressive disorder, recurrent without psychotic feature. 2. Delirium secondary to general medical condition, resolved. PLAN: 1. Continue current medication and care. 2. Griffin milieu. 3. Discharge planning. NATALIE CORTES MD CM:BRAD 41 [phone] Elli CORTES 08/02/17 2327 interface
[2017-07-31 04:44] LABS: BASO % 0.4 % (0.0-1.0); EOS # 0.1 10*3/uL (0.0-0.4); EOS % 1.5 % (1.0-4.0); HEMOGLOBIN 10.3 g/dl (12.0-16.0); LYMPH # 1.5 10*3/uL (1.3-4.4); LYMPH % 18.9 % (27.0-41.0); MEAN CELL VOLUME 91.2 fl (81.0-99.0); MEAN CORPUSCULAR HGB 28.5 pg (27.0-31.0); MEAN CORPUSCULAR HGB CONC 31.2 g/dl (33.0-37.0); MEAN PLATELET VOLUME 8.9 fl (9.6-12.3); MONO # 0.7 10*3/uL (0.1-1.0); MONO % 8.9 % (3.0-9.0); NEUT # 5.4 10*3/uL (2.3-7.9); NEUT % 69.2 % (47.0-73.0); PLATELET COUNT AUTOMATED 275 10*3/uL (130-400); RED BLOOD COUNT 3.62 10*6/uL (4.10-5.10); RED CELL DISTRI WIDTH 13.4 % (0-14.5); WHITE BLOOD COUNT 7.8 10*3/uL (4.8-10.8)
[2017-07-31 04:46] LABS: ABG BASE EXCESS 8.3 mmol/L (-2.0-2.0); ABG HCO3 36.5 mmol/l (22-26); ABG O2 SATURATION 96.1 % (95-97); ARTERIAL BLOOD GAS PCO2 65.3 mmHg (35-45); ARTERIAL BLOOD GAS PH 7.364 (7.35-7.45); ARTERIAL BLOOD GAS PO2 82.5 mmHg (80-90)
--- NOTE | 2017-07-31 05:00 | NUR ---
PT REQUESTING PAIN MEDICATIONS, STATES ALL OVER BODY PAIN 05/18. NOTIFIED.
[2017-07-31 05:04] LABS: ALBUMIN 2.1 gm/dl (3.1-4.5); ALKALINE PHOSPHATASE 104 U/L (45-117); BUN 29 mg/dl (7-24); CHLORIDE 94 mmol/L (98-107); CREATININE 1.09 mg/dL (0.55-1.02); POTASSIUM 4.6 mmol/L (3.5-5.1); SGOT/AST 9 IU/L (3-35); SGPT/ALT 19 U/L (12-78); SODIUM 134 mmol/L (136-145); TOTAL PROTEIN 6.2 gm/dL (6.4-8.2); TROPONIN I 0.024 ng/ml (<0.045)
--- NOTE | 2017-07-31 05:27 | NUR ---
PT REQUESTING PAIN MEDICATIONS, ADVISED TYLENOL WAS ORDER. PT WANTS TO SPEAK TO PHYSICIAN. PHYSICIAN NOTED.
[2017-07-31 05:35] LABS: ACETAMINOPHEN (TYLENOL) < 2.0 ug/ml (10-30); ETHYL ALCOHOL < 3.0 mg/dl (<3)
[2017-07-31 05:39] LABS: URINE AMPHETAMINES < 1000 (1000ng/ml); URINE BARBITURATES < 200 (200ng/ml); URINE BENZODIAZEPINES < 200 (200ng/ml); URINE CANNABINOIDS (THC) < 50 (50ng/ml); URINE COCAINE < 300 (300ng/ml); URINE METHADONE < 300 (300ng/ml); URINE OPIATES > 300 (300ng/ml); URINE PHENCYCLIDINE < 25 (25ng/ml)
--- NOTE | 2017-07-31 06:20 | NUR ---
PATIENT RESTING IN BED WITH FAMILY AT BEDSIDE
--- NOTE | 2017-07-31 06:47 | NUR ---
PT UP TO BEDSIDE COMMODE WITHOUT DIFFICULTY, NO C/O VOICED AT THIS TIME.
[2017-07-31 06:50] LABS: BILIRUBIN NEGATIVE (NEGATIVE); BLOOD 2+ (NEGATIVE); CLARITY SL CLOUDY (CLEAR); COLOR YELLOW (YELLOW); GLUCOSE TRACE (NEGATIVE); KETONE NEGATIVE (NEGATIVE); LEUKO ESTERASE NEGATIVE (NEGATIVE); NITRITE NEGATIVE (NEGATIVE); SPECIFIC GRAVITY 1.015 (1.005-1.030); UROBILINOGEN 0.2 E.U./dl (0.2-1.0)
[2017-07-31 07:00] LABS: BACTERIA 1+; RBC 21-30 rbc/hpf (0-2)
--- NOTE | 2017-07-31 07:29 | NUR ---
RECEIVED REPORT FROM NURSE NAYELY. RESTING IN BED, NO SIGN OF DISTRESS. IN VIEW OF NURSES DESK.
--- NOTE | 2017-07-31 08:02 | NUR ---
PROVIDED PATIENT WITH BREAKFAST TRAY. PATIENT ASKED "WHICH ONE OF US ARE YOU TALKING TO?" THEN PATIENT WAS ASKING OTHER PEOPLE; WHO WERE NOT THERE, IF THEY ATE BREAKFAST AND ASKING THIS NURSE IF THESE OTHER PEOPLE HAD SEEN THE TRAY AND IF THEY ATE ANYTHING. THEN PATIENT ASKED IF THE MEAL WAS BROUGHT FROM THE HOSPITAL TO WHERE SHE IS. PATIENT ALERT AND ORIENTED TO SELF ONLY. UP TO BEDSIDE COMMODE. GAIT STEADY. ASKING IF HER BED IS EMPTY DOWN THE GOLDMAN.
--- NOTE | 2017-07-31 08:20 | NUR ---
SPOKE WITH RONDA FROM [facility]. SHE STATES SAMEERA THE NURSE WILL CALL BACK AFTER THEY COMPLETE THEIR REFERRAL AND GET ORDERS FROM PHYSICIAN.
--- NOTE | 2017-07-31 08:50 | NUR ---
PATIENT RESTING QUIETLY IN BED WITH EYES CLOSED. IN VIEW OF NURSES STATION.
--- NOTE | 2017-07-31 09:34 | NUR ---
REPORT TO ELAINA BRASHER
--- NOTE | 2017-07-31 09:40 | NUR ---
SPOKE WITH KANCHAN AT [facility]. STATES NO POA, NO ADVANCED DIRECTIVE OR LIVING WILL. EMERGENCY CONTACT IS HER DAUGHTER HAVEN. INFO RELAYED TO [facility] NURSE ASMEERA. SHE WILL BE DOWN TO GET PATIENT.
--- NOTE | 2017-07-31 10:08 | NUR ---
RESTING QUIETLY IN BED WITH EYES OPEN. RESTLESS. ORIENTED TO SELF ONLY. NO SIGN OF DISTRESS.
--- NOTE | 2017-07-31 10:41 | NUR ---
TRANSPORTED TO [facility] VIA [facility] NURSE AND SECURITY VIA WHEELCHAIR . CONDITION STABLE.
--- NOTE | 2017-07-31 10:54 | NUR ---
PT TRANSPORTED TO [facility] WITH SECURITY AND NURSE FROM [facility]
--- NOTE | 2017-07-31 12:41 | NUR ---
Spoke with Marely at [facility] in regards to pt. and pre-cert. A pre-cert. will be needed upon d/c. Will complete assessment.
--- NOTE | 2017-07-31 13:06 | NUR ---
MIGUELITODESTINY REESE a 67 year old F admitted via wheel chair from the EMERGENCY ROOM as a voluntary admission. Arrived on unit at approximately 10 am.. ALLERGIES: Latex and morphine. Vital signs are: 97.5-91-18 151/76. The client signed the voluntary admission form prior to her arrival to the unit. Upon admission she declined to review any further admitting forms, stating that she was "too tired right now." Admitted under the services of Dr. SOPHIA M.D.,[facility]. A search was conducted and hazardous articles were removed. Client was oriented to the unit. SAMEERA FLOWERS
--- NOTE | 2017-07-31 13:14 | NUR ---
Dr. Dozier states to continue home medications for psychiatric treatment. Dr. Magdaleno was notified of consultation for medical management.
--- NOTE | 2017-07-31 14:10 | NUR ---
Psychiatric nursing assessment completed @ this time. Alma Delia reports that she will sign her admitting forms.
--- NOTE | 2017-07-31 15:39 | NUR ---
Assessment completed. pt. dtr Iraida will be in this evening to visit.
--- NOTE | 2017-07-31 15:56 | NUR ---
Craft and postive trait group. Patient unavailable during group at this time due to with nursing for admission.
--- NOTE | 2017-07-31 18:06 | NUR ---
All necessary admitting forms were reviewed with Alma Delia and signed by Alma Delia after she rested. Resident for Dr. Magdaleno notified of need for admission orders.
--- NOTE | 2017-07-31 18:47 | NUR ---
Resident for Dr. Magdaleno notified of need for Wound Care consult.
--- NOTE | 2017-07-31 21:00 | NUR ---
HS BEDSIDE GLUCOSE 294
--- NOTE | 2017-08-01 00:48 | NUR ---
24 HR chart check completed.
--- NOTE | 2017-08-01 05:09 | NUR ---
PT HAS BEEN OBSERVED ON Q 15 MIN CHECKS & HAS REMAINED IN BED SINCE THE ONSET OF THE SHIFT. COMPLIANT WITH HS MEDICATIONS. HAS SLEPT QUIETLY PAST 2100. HAS UTILIZED O2 @ 3L/MIN.
--- NOTE | 2017-08-01 06:49 | NUR ---
AM BEDSIDE GLUCOSE 258
[2017-08-01 08:08] VITALS: BP 148/60
--- NOTE | 2017-08-01 09:15 | NUR ---
TREATMENT TEAM WAS HELD WITHT HE FOLLOWING: DR. CORTES (PHONE), RNs, AT, SW. CONTACT ISOLATION. DR. CORTES SAID PT HAVING RIGHT EYE PAIN.
--- NOTE | 2017-08-01 10:36 | NUR ---
Attmepted Physical Threapy evaluation this day but patient refused stating she was "not feeling" well. When asking patient to expand, she reported she couldn't even begin to tell me what all hurt but her back and stomach were hurting at present. Patient was laying on her left side in her bed with nasa cannula for oxgyen upon my arrival and departure. Patient intermittently openend her eyes for communicating. Patient requested to be covered up with sheet and blanket before my departure. Patient correctly idententified her name and . Will try to attempt PT Eval later. This PT communicated with ELAINA Stover.
--- NOTE | 2017-08-01 10:48 | NUR ---
H&P completed, updated info. sent to [facility] for "change in condition" paperwork to be completed by Marely at [facility].
--- NOTE | 2017-08-01 10:53 | NUR ---
[facility] Patient unable to participate in group due to being on isolation. Patient reports feeling tired and no desire to participate.
--- NOTE | 2017-08-01 11:06 | NUR ---
PT IS ALERT AND ORIENTED TO PERSON, PLACE, TIME AND SITUATION. MEMORY APPEARS INTACT. RESPIRATIONS EASY ON ROOM AIR. MOOD IS DEPRESSED WITH FLAT AFFECT. SPEECH IS SOFT AND SLOW BUT COHERENT, ABLE TO MAKE NEEDS KNOWN WITHOUT DIFFICULTY. PT DENIES HALLUCINATIONS, NO RESPONSE TO INTERNAL STIMULI NOTED. PT DENIES SI/HI. NO PARANOIA/DELUSIONS NOTED. PT REFUSED BREAKFAST AND MORNING INSULIN, PT STATES "I DON'T FEEL WELL." VITAL SIGNS WNL. PT IS INDEPENDENT WITH ADLS, ASSIST OF 1 FOR TRANSFERS/TOLEITING DUE TO FALL RISK. PT IS CONTINENT OF BOWEL AND BLADDER. PT'S TX PLAN TARGETS: (1) DEPRESSED MOOD R/T DECREASED MOBILITY7 AND CURRENT STRESSORS AEB IRRITABILITY AND POOR SLEEP. AND (2) ALTERATION IN SENSORY PROCESSES R/T DEPRESSION AEB AUDITORY AND VISUAL HALLUCINATIONS AND (3) FALL RISK. STAFF WILL ASSIST PT IN IDENTIFYING TRIGGERS TO DEPRESSION AND ASSIST IN DEVELOPING COPING SKILLS, ENCOURAGE RESTFUL SLEEP, ENCOURAGE PARTICIPATION IN 1:1 GROUPS/ACTIVITIES, ENCOURAGE PT TO VERBALIZE HALLUCINATIONS THEY OCCUR AND ENCOURAGE MEDICATION COMPLIANCE, PROVIDE MEDICATION EDUCATION AND MONITOR FOR SIDE EFFECTS WELL MAINTAIN FALL PRECAUTIONS PER POLICY. PLAN TO CONTINUE THE ABOVE TX PLAN. Q15 MIN SAFETY CHECKS MAINTAINED PER POLICY, CONTACT ISOLATION MAINTAINED D/T HX OF MRSA OF NARES, MRSA SCREEN NASAL SWAB SENT TO LAB [facility] REFER TO [facility] FLOWSHEET FOR SPECIFIC MONITORING.
--- NOTE | 2017-08-01 11:30 | NUR ---
DR. REDMOND AND DR. BULLARD HERE TO SEE PT AT THIS TIME. MADE AWARE OF PT'S COMPLAINT OF RIGHT EYE PAIN.
--- NOTE | 2017-08-01 12:57 | NUR ---
DESTINY MARADIAGA [id number] Please refer to the physician's history and physical for past medical history, comorbid conditions, and allergies. Diagnosis: BRIEF PSYCHOTIC DISORDER Julio Score: 16,AT RISK WOUND DESCRIPTIONS: Location of the wound: right elbow Size: 4.5cm x 5.5cm x <0.1cm Tunneling: none Undermining: none Sinus Tract: none Presence of Exudate: none Amount: None Color: Red and blanchable Odor: None Periwound Skin Appearance: Normal Wound edges: closed Pain (associated with wound): none at time of assessment How does patient state this happened? pt stated it was from her laying on that area Surface the patient is resting on: Proform SKIN PREVENTION RECOMMENDATION: 1. Pressure redistribution support surface as appropriate 2. Elevate heels 3. Remove boots/TEDS every shift and reapply 4. Head of bed 30 degrees as tolerated 5. Assess nutrition and hydration 6. Manage moisture 7. Avoid the use of containment devices while in bed 8. Use absorptive products on surfaces limit layers of linens on bed 9. Turn and reposition every 1-2 hours in bed and every 1 hour in chair as tolerated 10. Weight shifts every 15 minutes while up in chair 11. Offloading with pillows or device to keep heels elevated off bed 12. Monitor skin at least every shift 13. Inspect under medical devices twice a day WOUND TREATMENT RECOMMENDATIONS: Mositurzing lotion as needed.
--- NOTE | 2017-08-01 14:48 | NUR ---
PT REQUESTED BREATHING TX, POX 98% ON 3L VIA NC, RESPS EASY AND EVEN, NO ACUTE DISTRESS NOTED. CALL PLACED TO RESPIRATORY VIA VOCERA TO REQUEST DUONEB TX.
--- NOTE | 2017-08-01 14:50 | NUR ---
insurance authorized patient 3 days, nr 08/02/17
--- NOTE | 2017-08-01 15:08 | NUR ---
Physical Therapy evaluation completed. Patient lying in bed upon this PT's arrival and patient states she was tired from just getting back from using the bathroom. Patient reluctantly agreed to participated in PT but was agreeble since we would be confined to activity in her room and not performing a lot of activity. Patient reports having one THOM her home and having all facilities on the first floor. Patient states she lives with her daughter who "does everything" for patient. Patient states she sometimes would use a walker or cane in the house, always when leaving her home. Patient has weakness of B quadruceps and hip flexors. Transfers: supine to sit with Min A x 1; sit to stand with supervision and heavy B UE push to stand; bed to and from chair with SBA x 1, no LOB and steady with small, slow steps; sit to supine SBA x 1. Bed rail raised for patient. 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 This PT communicated these requests to longterm. Patient left laying in her bed in NAD. Continue PT for strengthening, gait (insided patient's room until cleared to leave her room), transfers and endurance. Thank you for this referral, Deja Garcia, PT
--- NOTE | 2017-08-01 15:21 | NUR ---
Self Esteem Story/Coping Skills Jepardy Patient did not attend group today,patient is quarenteened to her room. Patient chooses no 1:1 activity
--- NOTE | 2017-08-01 17:32 | NUR ---
BSG 227 - PT ORDERED 5 UNITS NOVOLOG COVERAGE PER SLIDING SCALE AND SCHEDULED ROUTINE 25 UNITS OF 70/30 INSULIN. PT REFUSED SLIDING SCALE, TOOK 25 UNITS OF 70/30, STATES "I'M AFRIAD IF I TAKE THEM BOTH MY SUGAR WILL DROP TOO LOW. I USUALLY DON'T TAKE THE SLIDING SCALE AT HOME UNLESS IT'S REALLY HIGH. I'LL SEE HOW I DO TOMORROW."
--- NOTE | 2017-08-01 18:25 | NUR ---
SHIFT CHART CHECK COMPLETED.
[2017-08-01 20:11] VITALS: BP 143/77
[2017-08-01 20:21] VITALS: BP 145/67
--- NOTE | 2017-08-01 21:30 | NUR ---
HS BEDSIDE GLUCOSE 226
--- NOTE | 2017-08-01 22:04 | NUR ---
24 HR chart check completed.
--- NOTE | 2017-08-02 06:27 | NUR ---
PT HAS BEEN OBSERVED ON Q 15 MIN CHECKS & HAS RESTED IN BED THROUGHOUT THE ENTIRE SHIFT SLEEPING APPROX 2 HOURS AT THE MOST. SHE HAS BEEN UP TO THE BATHROOM WITH ASSISTANCE FROM STAFF. PT HAS BEEN ALERT & ORIENTED X 3. RELEVANT IN CONVERSATION. DENIES ANY SENSORY DISTURBANCE & NONE IS EVIDENT. NO DELUSIONAL STATEMENTS. PT DID STATE THAT SHE IS A LITTLE DEPRESSED BUT HAS BEEN DEPRESSED FOR A LONG TIME. HAS RECEIVED 2 BREATHING TREATMENTS PRN REQUESTED.
--- NOTE | 2017-08-02 06:42 | NUR ---
PT HAS REMAINED IN CONTACT ISOLATION & HAS UTILIZED O2 @ 3L VIA NC CONTINOUSLY.
--- NOTE | 2017-08-02 06:57 | NUR ---
AM BEDSIDE GLUCOSE 183
[2017-08-02 07:55] VITALS: BP 125/69
--- NOTE | 2017-08-02 10:53 | NUR ---
Reminiscing Patient did not attend group. Patient is quarenteened to her room.
--- NOTE | 2017-08-02 10:57 | NUR ---
PHYSICAL THERAPY Alma Delia seen this AM 1:1 for her therapy session, MRSA glove and mask. Pt was supine in bed and talked into her treatment. Transfer supine/sit, sitting balance supervision x 1, X 6 min sitting. Sit/stand and standing balance is all she wanter to do. Stand to pt's tolerance X 2, with one sitting rest with [employer] LIGHT CLEANER X 1, cueing to hold her balance, then wanting to lay back down and said thats all. SHIRA BENJAMIN VICTIM WITNESS ADMINISTRATOR
--- NOTE | 2017-08-02 14:54 | NUR ---
BOYD ortiz with Marely at [facility] informing that Pt was pending for discharge for 08/03. Pt needs pre- cert. BOYD faxed information needed for pre-cert to Marely.
--- NOTE | 2017-08-02 15:32 | NUR ---
Identifing My Stregths Patient is quarantined to her room. Patient refused 1:1
--- NOTE | 2017-08-02 15:49 | NUR ---
Alma Delia is compliant with prescribed medications. On 1:1 interaction she is verbal regarding events leading to her hospitalization. Reports that she was feeling paranoid @ the nursing facility and thought that the staff was going to harm her. Denies that she feels this way now, but adds that she is unsure of how she will feel when she returns. No sensory disturbances are noted. Thoughts are organized and goal directed. Contact isolation continues @ this time. She expressed some c/o headache. Telephoned cell phone #1 Dr. Magdaleno regarding patient's complaints. Dr. Carrington answered and order was obtained for prn tylenol. Medicated with tyleonl 325 mg po (2 tabs) @ 1542. Rates her discomfort as an "8'" Utilizing O2 @ 3.5 l/min via nasal cannula and requested respiratory treatments x2 thus far. No acute distress noted. Refer to process intervention screen for glucometer readings. Also refer to [facility] flowsheet for specific monitoring.
[2017-08-02] MEDS ORDERED: LEXAPRO10 MG PO (18:00)
[2017-08-02 19:10] VITALS: BP 128/70
--- NOTE | 2017-08-02 21:02 | NUR ---
PT C/O HEADACHE WITH PAIN LEVEL 5/10. REQUESTED TYLENOL. PRN TYLENOL GIVEN AT THIS TIME. WILL MONITOR PT FOR EFFECTIVENESS OF MEDICATION.
--- NOTE | 2017-08-02 22:00 | NUR ---
PRN TYLENOL EFFECTIVE. PT REPORTS PAIN IS 2/10 AT THIS TIME.
--- NOTE | 2017-08-03 01:35 | NUR ---
PT REQUESTING TYLENOL FOR CHEST/HEAD PAIN. PAIN LEVEL 7/10. PRN BREATHING TX CALLED IN TO RESPIRATORY. PRN TYLENOL GIVEN PER ORDER. WILL CONTINUE TO MONITOR PT FOR EFFECTIVENESS OF MEDICATION.
--- NOTE | 2017-08-03 02:15 | NUR ---
PT A&O X4. COOPERATIVE WITH CARE. MEDICATION COMPLIANT. RESPIRATIONS EASY AND NON LABORED ON 3.5LPM NCABLE TO VERBALIZE WANTS AND NEEDS TO STAFF. DENIES SI/HI, HALLUCINATIONS AND DELUSIONS. PT'S TX PLAN TARGETS (1) DEPRESSED MOOD R/T DECREASED MOBILITY AEB IRRITABILITY AND POOR SLEEP AND (2) ALTERATION IN SENSORY PROCESSES R/T DEPRESSION AEB AUDITORY AND VISUAL HALLUCINATIONS AND (3) FALL RISK. STAFF WILL ASSIST PT IN IDENTIFYING TRIGGERS TO DEPRESSION AND ASSIST IN DEVELOPING COPING SKILLS, ENCOURAGE RESTFUL SLEEP, ENCOURAGE PARTICIPATION IN GROUPS AND ACTIVITIES, ENCOURAGE TO VERBALIZE HALLUCINATIONS THEY OCCUR AND ENCOURAGE MEDICATION COMPLIANCE. PROVIDE MEDICATION EDUCATION AND MAINTAIN FALL PRECAUTIONS PER POLICY. PLAN TO CONTINUE THE CURRENT TX PLAN, MAINTAIN Q15 MINUTE SAFETY CHECKS. CONTACT ISOLATION MAINTAINED FOR HX OF MRSA OF THE NARES. SEE [facility] FLOWSHEET FOR SPECIFIC MONITORING.
--- NOTE | 2017-08-03 02:30 | NUR ---
PRN TYLENOL EFFECTIVE. PT RESTING COMFORTABLY.
--- NOTE | 2017-08-03 02:55 | NUR ---
24 HR chart check completed.
--- NOTE | 2017-08-03 06:50 | NUR ---
PT SLEPT 3 HOURS INTERMITTENTLY NO PAIN, S/S OF DISTRESS NOTED. Q 15 MIN CHECKS MAINTAINED FOR SAFETY. ISOLATION FOR HX MRSA OF THE NARES IS COMPLETED
[2017-08-03 08:32] VITALS: BP 154/72
--- NOTE | 2017-08-03 09:15 | NUR ---
PHYSICAL THERAPY Patient was supine in bed this am when approached for therapy visit and politely declined all treatment this morining, stating she has a sore throat and does not feel well. No services provided this am and will check back this pm for second attempt. Nursing notified of patient c/o not feeling well. Jose Perera, SERVICE ENGINE REPAIRER
--- NOTE | 2017-08-03 09:30 | NUR ---
TREATENT TEAM WAS HELD WITHT HE FOLLOWING: DR. Bell (PHONE), RNs, AT, SW. WAITING ON PRE-CERT. PT TO BE DISCHARGED ONCE PRECERT IS RECEIVED.
--- NOTE | 2017-08-03 12:00 | NUR ---
RANJEET FROM [facility] INFORMING THAT PT WROTE THAT PT WAS GOING HOME AND PRECERT COULD NOT BE DONE. SW SPOKE WITH [facility] AND WILL HAVE PT CORRECT THE DISCHARGE DISPOSITION AND FAX OVER NOTE WHEN COMPLETED.
--- NOTE | 2017-08-03 12:16 | NUR ---
CORNCOB PIPE MANUFACTURING SUPERVISOR visits reviewed and I approve visit documentation and [employer] PIPE MANUFACTURING SUPERVISOR treatment. Patient continues to demonstrate weakness, poor activity tolerance, requires assistance with functional mobility, cannot walk in home distances, has been unable to practice one step in which is required to enter/exit her home and continues to have SOB with minimal exertion. Patient would benefit from care at a fdc facility to improve functional mobility. Deja Garcia, PT.
--- NOTE | 2017-08-03 12:56 | NUR ---
BOYD FAXED PT NOTE TO [facility] FOR PRE- CERT.
--- NOTE | 2017-08-03 13:07 | NUR ---
Aleyda Patient did not attend group this morning. Patient is quaratined to her room. Refuses 1:1
--- NOTE | 2017-08-03 14:30 | NUR ---
Alma Delia is compliant with prescribed medications. On 1:1 interaction with staff she states that she feels "ready to go." Discharge is pending precert per oncology social work. Alma Delia denies experiencing any sensory disturbances and no overt s/s are noted. No delusional statements were voiced during her time spent with staff. Contact isolation precautions continue. She has utilized her 02 @ 3.5 L/min throughout the day and intermittently has made request for breathing treatments. She also voiced some c/o headache and was medicated with tylenol two tabs po @ 0954 with partial relief stated. Rates her headache as a "10" prior to receiving tylenol and reports it is currently at "a 7." Refer to [facility] flowsheet for specific monitoring.
--- NOTE | 2017-08-03 15:25 | NUR ---
Fears Patient is quaratined to her room. Patient refuses 1:1
--- NOTE | 2017-08-03 16:00 | NUR ---
SW LEFT VM LEFT VM FOR [facility] - JENN TO SEE IF PRE CERT WAS BACK.
--- NOTE | 2017-08-03 17:30 | NUR ---
BOYD SPOKE WITH DTR HAVEN INFORMING HER THAT PRE CERT WAS NOT BACK AND PT WOULD PROBABLY BE DISCHARGED ON MONDAY.
--- NOTE | 2017-08-03 18:52 | NUR ---
DESTINY REQUESTED AND WAS ADMINISTERED TYLENOL TWO TABS PO (325 MG EACH) @ 1739 FOR CONTINUED C/O HEADACHE AND BACK DISCOMFORT. STATES ONLY PARTIAL RELIEF OBTAINED.
[2017-08-03 20:03] VITALS: BP 147/69
--- NOTE | 2017-08-03 22:53 | NUR ---
PATIENT IS ALERT AND ORIENTED X3, MOOD DEPRSSED. DENIES SI/HI, HALLUCINATIONS, AND DELUSIONS. NO NOTED RESPONDING TO INTERNAL STIMULI. RESPIRATIONS EASY AND NON LABORED ON 3L VIA NC CONTINUOUSLY. BSG GLUCOSE 230 - PT ORDERED 5 UNITS INSULIN COVERAGE PER SLIDING SCALE, PT REFUSED COVERAGE AFTER EDUCATION STATING "I DONT WANT TO TAKE THAT TONIGHT, AT TIMES MY SUGAR WILL JUST DROP LOW, IM JUST GOING TO HOLD OFF ON IT FOR TONIGHT". NO PHYSICAL COMPLAINTS VOICED. NO SIGNS OR SYMPTOMS OF DISTRESS NOTED. PTS TREATMENT PLAN TARGETS (1) DEPRESSED MOOD R/T DECREASED MOBILITY AEB IRRITABILITY AND POOR SLEEP AND (2) ALTERCATION IN SENSORY PROCESSES R/T DEPRESSION AEB AUDITORY AND VISUAL HALLUCINATIONS AND (3) FALL RISK. STAFF WILL ASSIST PATIENT IN IDENTIFYING TRIGGERS TO DEPRESSION AND ASSIST IN DEVELOPING COPING SKILLS, ENCOURAGE RESTFUL SLEEP, ENCOURAGE PARTICIPATION IN GROUPS AND ACTIVITIES, ENCOURAGE TO VERBALIZE HALLUCINATIONS THEY OCCUR AND ENCOUARGE MEDICATION COMPLIANCE. PROVIDE MEDICATION EDUCATION AND MAINTAIN FALL PRECAUTIONS PER POLICY. PLAN TO CONTINUE THE CURRENT TX PLAN, MAINTAIN Q15 MIN SAFETY CHECKS. CONTACT ISOLATION MAINTAINED FOR HX OF MRSA OF THE NARES. SEE [facility] [[email or web address] FLOWSHEET FOR SPECIFIC MONITORING.
--- NOTE | 2017-08-04 03:08 | NUR ---
PATIENT RECIEVED PRN TYLENOL 650MG REQUESTED FOR "ALL OVER BODY ACHES" WITH A RATING OF 7/10. NO OTHER PHYSICAL COMPLAINTS VOICED. NO SIGNS OR SYMPTOMS OF DISTRESS.
--- NOTE | 2017-08-04 05:15 | NUR ---
24 HOUR CHART CHECK COMPLETED.
--- NOTE | 2017-08-04 05:49 | NUR ---
PATIENT OBSERVED ON Q 15 MIN CHECKS TO HAVE SLEPT THROUGHOUT THE NIGHT WITH X1 AWAKENING TO CALL DOWN TO THE NURSES STATION. NO SIGNS OR SYMPTOMS OF DISTRESS NOTED.
[2017-08-04 07:36] VITALS: BP 150/65
--- NOTE | 2017-08-04 09:30 | NUR ---
TREATMENT TEAM WAS HELD WITHT HE FOLLOWING: DR. CORTES (PHONE), RNS, SW, AT, DIRECTOR, MEDICAL STUDENT. WAITIGN FOR PRE-CERT. SW INFORMED DR. CORTES THAT PT NEEDED TO CHANGE DISCHARGE DISPOSITION DUE TO RECORDING THAT PT WAS GOING HOME TO GOING BACK TO [place] ON 08-03-17. PRE-CERT SHOULD BE BACK TODAY. DR. CORTES SAID OK TO DISCHARGE WHEN PRE-CERT IS BACK.
--- NOTE | 2017-08-04 10:45 | NUR ---
PATIENT COMPLAIN OF HEADACHE AND BACK PAIN, 04/17. PRN TYLENOL 650MG GIVEN PO AT THIS TIME.
--- NOTE | 2017-08-04 11:09 | NUR ---
Remebering our Tastes Patient did not attend group. Patient is in quarantine and refuses 1:1
--- NOTE | 2017-08-04 11:45 | NUR ---
BOYD CALLED [facility] TO SEE IF PRECERT WAS BACK. JENN STATED THAT PRECERT WAS NOT BACK YET. JENN WILL CALL WHEN PRECERT IS BACK.
--- NOTE | 2017-08-04 12:05 | NUR ---
insurance approved 2 more days, last covered day 08/04 with nr 08/04
--- NOTE | 2017-08-04 13:13 | NUR ---
PHYSICAL THERAPY Alma Delia seen this PM 1:1 for her therapy session and just not wanting up. Said that she is to be D/C and wants out of here. SHIRA BENJAMIN EMPLOYMENT SPECIALIST/PROGRAM MANAGER.
--- NOTE | 2017-08-04 14:53 | NUR ---
SW RECEIVED CALL FROM [facility] REPORTING THAT PRE-CERT WAS BACK AND PT COULD RETURN. SW WILL SCHEDULE TRANSPORATION.
--- NOTE | 2017-08-04 15:03 | NUR ---
DR DOUGLAS NOTIFIED TO LET DR. REDMOND KNOW OF PATIENT BEING DISCHARGED TODAY, AWAITING [facility]ICHARGE ORDERS.
[2017-08-04] MEDS ORDERED: MUCINEX ER600 MG PO (15:08)
--- NOTE | 2017-08-04 15:17 | NUR ---
Games Patient did not attend group. patient is in quarantine in her room. Patient refuses 1:1
--- NOTE | 2017-08-04 15:26 | NUR ---
NURSE TO NURSE PROVIDED TO [facility] AT THIS TIME, SPOKE WITH
--- NOTE | 2017-08-04 15:33 | NUR ---
BOYD SPOKE WITH JUANCHO AT [facility]. PROVIDER WILL BE CALLING TO INFORM OF TIME. BOYD LET JUANCHO KNOW THAT [facility] COULD TRANSPORT AFTER 6PM.
--- NOTE | 2017-08-04 15:33 | NUR ---
BOYD CALLED [facility] Mirella ROSEN TO ARRANGE TRANSPORATION. KEITH SAID TO CALL [facility] FOR AUTHORIZATION. CAN TRANSPORT AFTER 6PM
--- NOTE | 2017-08-04 16:20 | NUR ---
TRANSPORTATION CALLED AND SAID THAT [facility] WILL BE COMING SHORTLY TO [facility] PT.
--- NOTE | 2017-08-04 16:29 | NUR ---
PATIENT READY FOR DISCHARGE, REVIEWED DISCHARGE INSTRUCTIONS, ALL PAPERWORK PROVIDED VERBAL CONSENT D/T ISOLATION PRECAUTIONS. AMBULANCE SERVICE HER WITH 2 ASSIST TO [facility]. ALL BELONGING AND DISCHARGE INSTRUCTION SENT WITH PATIENT OFF OF UNIT. PATIENT DISCHARGED AT THIS TIME.
--- NOTE | 2017-08-04 16:59 | NUR ---
BILL REQUESTED MEDICAL NECESSITY FORM. SW COMPLETED AND GAVE THEM THE FORM.
--- NOTE | 2017-08-04 17:00 | NUR ---
PT WAS DISCHARGED BACK TO [facility] BY [facility]. NURSE NOTIFIED DAUGHTER THAT PT WA GETTING READY TO LEAVE AND THAT PT WANTED A SNACK. NURSE MCNALLY AND BOYD VERBALLY REVIEWED DSCAHRGE PAPERS WITH PT AND SIGNED FORMS. PT DID NOT SIGN FORMS DUE TO CONTACT ISOLATION. COPIES OF DISCHARGE FORMS WERE GIVEN TO PT AND HC. SW HAD FAXED TO [facility] DISCHARGE ORDERS.
--- NOTE | 2017-08-07 07:51 | NUR ---
PHYSICAL THERAPY CO-SIGN I approve of the Phyical Therapy notes written above. KAREY VILLALPANDO PT
== END 2017-08-04 16:29 | disposition other institution (70) | DRG 885 ==
LOC: ED 03:42 → 3N 10:22
PROVIDERS: Emergency Medicine Emergency Medical Services; ADMIT Psychiatry & Neurology Psychiatry
DX: F33.3 Major depressive disorder, recurrent, severe with psychotic symptoms (principal); E43 Unspecified severe protein-calorie malnutrition; J96.10 Chronic respiratory failure, unspecified whether with hypoxia or hypercapnia; E11.51 Type 2 diabetes mellitus with diabetic peripheral angiopathy without gangrene; F05 Delirium due to known physiological condition; I50.22 Chronic systolic (congestive) heart failure; I11.0 Hypertensive heart disease with heart failure; F23 Brief psychotic disorder; Z68.42 Body mass index [BMI] 45.0-49.9, adult; F29 Unspecified psychosis not due to a substance or known physiological condition; E11.65 Type 2 diabetes mellitus with hyperglycemia; J44.9 Chronic obstructive pulmonary disease, unspecified; E55.9 Vitamin D deficiency, unspecified; K21.9 Gastro-esophageal reflux disease without esophagitis; I25.10 Atherosclerotic heart disease of native coronary artery without angina pectoris; F41.9 Anxiety disorder, unspecified; E66.01 Morbid (severe) obesity due to excess calories; E78.5 Hyperlipidemia, unspecified; G47.33 Obstructive sleep apnea (adult) (pediatric); Z96.642 Presence of left artificial hip joint; Z79.4 Long term (current) use of insulin; I25.2 Old myocardial infarction; Z99.81 Dependence on supplemental oxygen; Z90.49 Acquired absence of other specified parts of digestive tract; Z98.51 Tubal ligation status; Z95.1 Presence of aortocoronary bypass graft; Z87.891 Personal history of nicotine dependence; Z82.49 Family history of ischemic heart disease and other diseases of the circulatory system; Z83.3 Family history of diabetes mellitus; Z88.5 Allergy status to narcotic agent; Z91.040 Latex allergy status; Z79.899 Other long term (current) drug therapy; Z87.440 Personal history of urinary (tract) infections

== ENCOUNTER 2017-08-23 11:23 | Inpatient (IN) | payer OTHER ==
[~2017-08-23] VITALS: Ht 160 cm; Wt 129.3 kg
[2017-08-23] VITALS (16 sets, daily range): BP systolic 81–166; BP diastolic 38–90
--- NOTE | ~2017-08-23 | PR ---
[place], [place] PROGRESS NOTE NAME: DESTINY MARADIAGA [facility] #: [id number] UNIT #: [id number] ROOM: 402 DOCTOR: KATIE SEGAL MD,ROGER BIRTHDATE: [birth year] DOS: 08/27/2017 SUBJECTIVE: She has been comfortably resting on the bed. Coughing has been noted some without any sputum expectoration. Denies symptoms of chest pain or any abdominal pain. She had a CT scan of the chest without contrast, which was ordered by the primary care physician as well and was reviewed. The patient has been using the BiPAP at nighttime, intermittently during the day as well. OBJECTIVE: VITAL SIGNS: For the patient, which has been recorded shows a temperature was noted as normal temperature, respiratory rate range between 16-17, heart rate of 79, blood pressure of 180/71-144/58. Pulse oxygen saturation 3 liters nasal cannula 97% saturation. BiPAP was 98%-100% saturation. HEENT: Chronic obesity. NECK: Supple and obese. CARDIOVASCULAR: S1, S2 audible. LUNGS: The patient was noted with moderate reduction of the breath sounds noted in the right lung. There was no wheezing or crackles. ABDOMEN: Noted severe obesity. EXTREMITIES: Chronic changes. LABORATORY DATA: The patient's urine for Legionella antigen and streptococcal pneumonia antigen both were noted negative. CBC this morning, hemoglobin 9.4, hematocrit 29.8, platelet count was normal. BMP this morning, BUN 63, creatinine 1.11. Glucose 279. Sodium 135. CT scan of the chest that was done without contrast was personally reviewed from the back images. It shows evidence of infiltration with some atelectasis in the right lower lobe for this patient and partially of the right middle lobe as well. Small loculated pleural fluid for the patient was noted. The left lung was noted clear. Small hiatal hernia was also visible. IMPRESSION: 1. The patient has been currently noted with acute pneumonia associated with parapneumonic small loculated pleural fluid, responding to the treatment very well. 2. Improving acute severe hypercapnic and hypoxic respiratory failure. 3. Suspected obstructive sleep apnea disorder and obesity hypoventilation syndrome as well. 4. Chronic morbid obesity as well. PLAN OF TREATMENT: Continuation of the BiPAP with oxygen supplementation. Continuation of current antibiotics based on the culture results. Supportive therapy, plan of management and other care, plan of management. Usual treatment. Additional treatment changes need to be made based on the progression of the illness. Continuation of Solu-Medrol 30 mg b.i.d. Antibiotic to be continued for the patient possibly for a total of 10-14 days because of current complicated pneumonia associated with pleural effusion. Monitoring of chest x-ray needs to be continued intermittently. Pleural fluid was noted small at this time, it would not require any acute intervention or assessment. [place], [place] PROGRESS NOTE NAME: DESTINY MARADIAGA UNIT #: [id number] ROOM: [facility] DOCTOR: ROGER JEROME MD BIRTHDATE: [birth year] ROGER WILSON MD CM:PNTRANS [id number] ROGER SEGAL MD 08/28/178 interface
--- NOTE | ~2017-08-23 | PR ---
[place], [place] PROGRESS NOTE NAME: DESTINY MARADIAGA [facility] #: [id number] UNIT #: [id number] ROOM: [facility] DOCTOR: HUGO MARIE,CITLALY Marrero BIRTHDATE: [birth year] DOS: 08/26/2017 NEPHROLOGY FOLLOWUP NOTE SUBJECTIVE: The patient was seen and examined. Her family was visiting. She is sitting in a chair, on nasal cannula. She denied shortness of breath, fevers, chills or night sweats. PHYSICAL EXAMINATION: VITAL SIGNS: Showed temperature 98.3, pulse 67, respiratory rate 14, blood pressure 181/63. HEENT: Shows no JVD. LUNGS: Diminished breath sounds. No wheeze. HEART: Normal S1, S2. No rub, thrill or gallop. ABDOMEN: Soft, nontender. There is no organomegaly. EXTREMITIES: Showed 1+ edema. SKIN: Showed no rash. LABORATORY DATA: Sodium 142, potassium 3.9, BUN 62, creatinine 1.5, glucose 374, calcium of 7.9, hemoglobin 9.2, white count 12.5, platelets of 198. IMPRESSION: 1. Acute kidney injury, which seems to be improving. Continue to follow lab trends. Dose medication for current creatinine clearance. Avoid nephrotoxic agents. 2. Hypertension. Continue medications. It seems her lisinopril has been resumed as well as Lasix. Continue to titrate blood pressure medications. 3. Anemia. Hemoglobin and hematocrit is stable. Transfuse as needed. 4. Respiratory failure. The patient is now extubated on nasal cannula. From a renal standpoint, there is nothing further to add. We will sign off. Call if needed again. CITLALY ARIAS MD CM:PNTRANS [phone] CITLALY ARIAS MD 08/26/17 2324 interface
--- NOTE | ~2017-08-23 | DS ---
[place], [place] DISCHARGE SUMMARY NAME: DESTINY MARADIAGA [facility] #: [id number] UNIT #: [id number] ROOM: 402 DOCTOR: JR BRANDT MD BIRTHDATE: [birth year] DOS: 08/30/2017 DIAGNOSES: 1. Right middle lobe pneumonia with consolidation and bilateral atelectasis. 2. Acute hypercapnic respiratory failure. 3. Panacinar emphysema with chronic respiratory failure. 4. Benign hypertension. 5. Cardiomyopathy, ejection fraction 20% with a negative stress test. 6. Iron deficiency anemia. 7. Mild major depression, recurrent. 8. Acute kidney injury. 9. Hyperkalemia from acute kidney injury. 10. Type 2 diabetes mellitus, insulin-dependent. 11. Adult failure to thrive. DISCHARGE MEDICATIONS: Will be PT, OT consult. ADA diet 1800 calories, clonidine 0.1 mg twice a day, fluid restriction to about 2000 mL, hydralazine 50 q. 8 hours, Coreg 3.125 twice a day, lisinopril 2.5 daily, [place] ____ twice a day p.r.n., Lasix 20 daily, guaifenesin 600 b.i.d., Daliresp 500 mcg daily, Colace 100 mg daily, multivitamin 1 tablet daily, Plavix 75 daily, atorvastatin 40 daily, 70/30 insulin 25 units twice a day, vitamin D with calcium, Os-Avery 250 mg daily, B12 500 mcg p.o. daily, breathing treatments, DuoNeb q. 4 hours, Lexapro 20 daily. Blood sugars to be checked twice daily, coverage scale to be started. Rocephin 1 gram IV daily, use IJ for IV antibiotics and also Solu-Medrol 20 mg IV twice a day for 5 days and then discontinue and place on prednisone 10 mg daily. Please do a basic and a CBC on Monday morning. The patient can have a pass to go home for Thanksgiving. HOSPITAL COURSE: The patient is 67-year-old, very well known to us, was found to be obtunded at the snf, was brought to the Emergency Room, was found to have acute hypercapnic respiratory failure. The patient was intubated, was admitted to the hospital after intubation. The patient after admission to the ICU was placed on IV fluids for acute kidney injury. Potassium supplementation was discontinued. IV antibiotics for the right middle lobe pneumonia with consolidation. The patient improved. The kidney function improved with IV fluids and has stabilized. Nephrotoxic meds were all discontinued. On the ventilator support, the patient's oxygenation and hypercapnia resolved. The patient was eventually taken off the ventilator and has done well. Echocardiogram showed cardiomyopathy, which is new onset, could be a stunned myocardium versus coronary artery disease. Dr. Enriquez was consulted. The patient underwent a stress test, which showed no perfusion defects. Dr. Subramanian recommended the continuation of IV antibiotics for another 7 days. The patient has an IJ for IV access, which will be left and would receive the IV antibiotics through the IJ. PT/OT were consulted. The patient is much improved and stable. Her pressure is better controlled with multiple medications. Blood sugars are not very well controlled, possibly from steroid-induced hyperglycemia. Further increase in insulin will be made if the sugars do not come down once the [place], [place] DISCHARGE SUMMARY NAME: DESTINY MARADIAGA UNIT #: [id number] ROOM: 402 DOCTOR: JR BRANDT MD BIRTHDATE: [birth year] steroids are tapered off. JR BRANDT MD CM:DISCHMICHELLE 9 [phone] JR BRANDT MD 08/30/17855 interface
--- NOTE | ~2017-08-23 | WRIGHTHP ---
[place], [place] PATIENT HISTORY AND PHYSICAL EXAM NAME: DESTINY MARADIAGA [facility] #: [id number] UNIT #: [id number] ROOM: [facility]- DOCTOR: JR BRANDT MD BIRTHDATE: [birth year] DOS: 08/23/2017 HISTORY OF PRESENT ILLNESS: This is a 67-year-old patient who was found hypoxic and fairly unresponsive at the intermediate, was brought to the emergency room where she was found to be in hypercapnic respiratory failure. She was intubated, was admitted to ICU. She was also noted to have hyperkalemia with worsening of kidney functions. This morning, the patient is wide awake on the ventilator. She does try to understand questionnaire and shakes her head. She does not have any complaints of chest pains or palpitations this morning. She does not like the ET tube. PAST MEDICAL HISTORY: Significant for 1. Chronic respiratory failure. 2. COPD. 3. History of depression with hospitalization in [facility] for psychosis. 4. Type 2 diabetes mellitus, insulin-dependent. 5. Benign hypertension. 6. Generalized anxiety disorder. 7. Obstructive sleep apnea. 8. Mixed hyperlipidemia. MEDICATIONS: She is currently on are atorvastatin 40 daily, calcium 250 daily, Coreg 25 b.i.d., vitamin D 1000 units daily, Plavix 75 daily, vitamin B12 500 mcg daily, Colace 100 daily, Lexapro 20 daily, [place] 10 q. 12, lisinopril 5 daily, multivitamin 1 tablet daily, potassium 20 daily, Carafate 1 gram before meals and at bedtime, insulin 70/30 25 units twice a day. SOCIAL HISTORY: Nonsmoker, history of smoking. PHYSICAL EXAMINATION: GENERAL: She is awake and alert and oriented, temperature was 94.4 when she arrived and she was placed on a warming blanket with warm saline. VITAL SIGNS: Pulse of 30s to 40s when she came in, respirations were 12, blood pressure 122/48. This morning heart rate has come up into the 80s, temperature has improved to 100.3, respirations on a ventilator SIMV of 12, blood pressure 168/52. NECK: Supple. LUNGS: Diminished breath sounds, clear. HEART: Regular. ABDOMEN: Obese, soft. EXTREMITIES: Without any edema. ASSESSMENT AND PLAN: 1. A 67 years old, she comes in with acute hypercapnic respiratory failure. She was intubated and doing much better this morning, pCO2 is in the 70s, which most likely is her baseline pCO2. 2. Dr. Subramanian has been consulted, ventilator management by Dr. Subramanian. 3. Chronic obstructive pulmonary disease with chronic respiratory failure. The patient's bronchodilators to be maximized. 4. Acute kidney injury with hyperkalemia, slow IV hydration has been given. [place], [place] PATIENT HISTORY AND PHYSICAL EXAM NAME: DESTINY MARADIAGA [facility] #: [id number] UNIT #: [id number] ROOM: [facility] DOCTOR: JR BRANDT MD BIRTHDATE: [birth year] 5. Cor pulmonale with increased leg edema and lymphedema. The patient was on high dose of diuretics at the intermediate. Because of continued weight gain, she was also on a fluid restriction. Diuretics have been discontinued including the lisinopril because of the kidney injury. 6. Type 2 diabetes mellitus, insulin-dependent. Blood sugars will be checked every 4 hours and coverage is started, hold off on home medications. The patient has been placed on Pulmocare and ____ NG tube feeding. JR BRANDT MD CM:HISPHYS:PATIENT HISTORY AND PHYSICAL EXAMINATION [id number] JR BRANDT MD 08/24/17 1125 interface
--- NOTE | ~2017-08-23 | PR ---
[place], [place] PROGRESS NOTE [id number] #: [id number] ROOM: 402 DOCTOR: JR BRANDT MD BIRTHDATE: [birth year] DOS: The patient is awaiting a Trilogy vent for home usage. The patient has underlying severe COPD, has had multiple admissions. Due to the severity of chronic hypercapnic respiratory failure secondary to COPD and frequent exacerbation, the patient will require treatment with a home ventilator that will prevent further recurrent exacerbation as well as reduce admissions to the hospital and improve quality of life. JR BRANDT MD CM:PNTRANS 6 JR BRANDT MD 08/28/1750 interface
--- NOTE | ~2017-08-23 | PR ---
[place], [place] PROGRESS NOTE NAME: DESTINY MARADIAGA [facility] #: [id number] UNIT #: [id number] ROOM: 402 DOCTOR: KATIE SEGAL MD,ROGER BIRTHDATE: [birth year] DOS: 08/28/2017 SUBJECTIVE: She has been transferred from the intensive care unit to telemetry floor. She has been noted comfortable at this time, but complains of pain in the back and other parts of the body, which has been treated with medication by the primary care physician. The coughing is subsiding and shortness of breath was improving. OBJECTIVE: VITAL SIGNS: Normal temperature, respiratory rate 20, heart rate of 68, blood pressure 180/62-160/72. HEENT: No new change. NECK: Supple. CARDIOVASCULAR: S1, S2 audible. LUNGS: The patient was noted without any wheezing or crackles. Decreased breath sounds noted in the right lower lung. ABDOMEN: Soft, nontender. IMPRESSION: Acute pneumonia involving the right lower lobe with associated small pleural fluid, clinically improving. Improving [id number] hypercapnic and hypoxic respiratory failure. PLAN OF MANAGEMENT: Continuation of the patient's current therapy plan and management, previously ordered. Continue other supportive plan of management as in progress as well. Usual care, other supportive therapy and care. ROGER WILSON MD CM:PNTRANS [phone] ROGER SEGAL MD 08/28/17 2338 interface
--- NOTE | ~2017-08-23 | PR ---
[place], [place] PROGRESS NOTE NAME: DESTINY MARADIAGA UNIT #: [id number] ROOM: 402 DOCTOR: JR BRANDT MD BIRTHDATE: [birth year] DOS: 08/27/2017 SUBJECTIVE: The patient is resting comfortably, does not have any new complaints. She has been using her BiPAP at night. OBJECTIVE: VITAL SIGNS: Graphic trend shows a pressure of 144/58, pulse of 63, respirations 14, temperature 98.0. LUNGS: Diminished breath sounds. No wheezes, rales, rhonchi heard. HEART: Regular. ABDOMEN: Obese, soft, nontender. EXTREMITIES: Without any edema. LABORATORY DATA: White cell count 9.1, hemoglobin 9.4, hematocrit 29.8, platelets 187. BMP: Glucose 279, BUN 63, creatinine 1.11, sodium 135, potassium 4.7, chloride 97, bicarbonate 33. ASSESSMENT AND PLAN: 1. Acute hypercapnic respiratory failure. The patient is going to need a ventilator for home usage to avoid further admissions and hypercapnic respiratory failures. 2. Panacinar chronic obstructive pulmonary disease with mild exacerbation and with acute respiratory failure, on IV steroids. Chest x-ray shows possibility of atelectasis, go and arrange for a CT of the chest. 3. Acute kidney injury, has stable creatinine. Nephrotoxic meds have been avoided. 4. Cardiomyopathy with drop in the ejection fraction a couple of months, suggesting either stunned myocardium or coronary artery disease. The patient to have a stress test on Monday by Dr. Enriquez. 5. Type 2 diabetes mellitus. Blood sugars are not very well controlled. Increase the dose of the insulin. 6. Anemia noted on the blood count, will do an iron, B12 and folic acid level, most likely anemia of chronic disease from underlying renal insufficiency. 7. Adult failure to thrive. PT/OT to be consulted and the patient to be moved out of the ICU. [place], [place] PROGRESS NOTE NAME: DESTINY MARADIAGA UNIT #: [id number] ROOM: 402 DOCTOR: JR BRANDT MD BIRTHDATE: [birth year] JR BRANDT MD CM:PNISABEL [id number] JR BRANDT MD 08/28/17 1026 interface
--- NOTE | ~2017-08-23 | ST ---
[place], [place] EXERCISE STRESS TEST REPORT [id number] #: [id number] ROOM: 402 DOCTOR: JT GUEVARA MD BIRTHDATE: [birth year] DOS: 08/29/2017 PROCEDURE: Lexiscan Cardiolite. A 0.4 mg of Lexiscan, duration of 10 seconds. Baseline cardiogram sinus rhythm with nonspecific ST-T changes. With Lexiscan, no new EKG changes. The patient did have some shortness of breath. No chest discomfort. Blood pressure and heart rate response was normal. FINAL IMPRESSION: No EKG changes with Lexiscan. Significant shortness of breath with Lexiscan. Blood pressure and heart rate response was normal. Isolated premature atrial contractions are present. Nuclear images will be reported separately. JT GUEVARA MD CM:STRESS:EXERCISE STRESS TEST REPORT [id number] JT GUEVARA MD
--- NOTE | ~2017-08-23 | PR ---
[place], [place] PROGRESS NOTE [facility] [id number] #: [id number] ROOM: 402 DOCTOR: KATIE SEGAL MD,ROGER BIRTHDATE: [birth year] DOS: 08/29/2017 SUBJECTIVE: She has been noted comfortable at this time without distress using the BiPAP and oxygen supplementation. Minimal cough was noted. There was no sputum expectoration. Denies any chest pain. OBJECTIVE: VITAL SIGNS: Normal temperature, respiratory rate 20, heart rate 71, blood pressure 162/81. Pulse oxygen saturation of the patient recorded as 96% on 3 liters nasal cannula. HEENT: Chronic obesity. NECK: Supple. CARDIOVASCULAR: S1, S2 audible. LUNGS: Decreased breath sounds noted in the right lower lung. There was no wheezing or crackles. ABDOMEN: Soft, very obese. EXTREMITIES: Shows chronic obesity. IMPRESSION: 1. Acute pneumonia with a small loculated right pleural fluid. 2. Acute hypercapnic and hypoxic respiratory failure, responding to treatment very well. 3. Chronic obstructive pulmonary disease. 4. Morbid obesity. PLAN OF TREATMENT: No changes in the medical plan of management. The discharge planning has been discussed with Dr. Mary Ann Gilman to arrange for the IV antibiotic. The patient would also benefit with the use of the BiPAP at the nursing facility. All other supportive plan to be continued. Usual care, plan of therapy and management. ROGER WILSON MD CM:PNTRANS [phone] ROGER SEGAL MD 08/30/17 0017 interface
--- NOTE | ~2017-08-23 | PR ---
[place], [place] PROGRESS NOTE NAME: DESTINY MARADIAGA [facility] #: [id number] UNIT #: [id number] ROOM: [facility] DOCTOR: KATIE SEGAL MD,ROGER BIRTHDATE: [birth year] DOS: 08/25/2017 SUBJECTIVE: The patient was seen and examined on 08/25/2017. Remains on mechanical ventilator, sedated. Mechanical ventilation was continued with some changes in the made for this patient on mechanical ventilation with change of the tidal volume in the last 24 hours. She has not been reported any symptoms of hemodynamic instability. She did not require any use of the vasopressor. Blood pressure has been noted in the normal range. She has been starting the feeding yesterday, seemed to be tolerated at this time, currently getting Pulmocare at 30 mL an hour. Sedation was given for this patient with the use of Versed 5 mg q. 1 hour p.r.n. The patient has been noted to be waking up opening her eyes with vocal commands, appeared to be comfortable, remains on mechanical ventilator and orogastric tube. OBJECTIVE: VITAL SIGNS: For the patient, which has been recorded patient's rectal temperature of 101 degree Fahrenheit to normal temperature, respiratory rate ranging between 12-18, heart rate 64-81, normal sinus rhythm, blood pressure 158/54-141/63. Intake for the patient was 1430 mL over 1700 mL, pulse oxygen saturation 30% oxygen, which was decreased gradually. The patient in the last 24 hours was noted as 96% saturation of oxygen at the bedside assessment. HEENT: The patient remained orally intubated. NECK: Supple and obese. Orogastric tube is in place. CARDIOVASCULAR: S1, S2 audible. LUNGS: Moderate reduction in the breath sounds were noted in the lungs bilaterally ____. EXTREMITIES: The patient was noted with chronic obesity, mild edema. Chronic venous stasis pigmentation. LABORATORY DATA: The patient's CBC this morning, WBC count 12.5, hemoglobin 9.2, hematocrit 30.2, platelet count 198,000, 94% segmented neutrophils. The arterial blood gas of the patient 40% oxygen this morning on assist controlled mode of mechanical ventilation, pH of 7.38, pCO2 of 56.8, pO2 of 87.4. Endotracheal aspirate culture of the patient was noted as the final results normal rashaun from the of this month, urine culture showed no bacterial growth. The BMP this morning, BUN 62, creatinine 1.50, glucose 374. CO2 was 34. Chest x-ray, the patient noted very poorly positioned and actually patient cannot comment on that. Possibility of congestive heart failure superimposed cannot be completely excluded. IMPRESSION: 1. The patient who has been currently admitted to the hospital noted with chronic hypercapnia and hypoxia. 2. The patient with acute exacerbation of chronic obstructive pulmonary disease as well. 3. Type 2 diabetes mellitus. 4. Acute injury for this patient, is responding to treatment. 5. The patient with morbid obesity as well with obesity hypoventilation, [place], [place] PROGRESS NOTE NAME: DESTINY MARADIAGA UNIT #: [id number] ROOM: [facility] DOCTOR: ROGER JEROME MD BIRTHDATE: [birth year] obstructive sleep apnea disorder suggested as well. 6. Chronic metabolic alkalosis secondary to the hypercarbia. PLAN OF MANAGEMENT: De-escalation of the antibiotic will be done, the vancomycin will be discontinued since all the cultures, which were done were not supporting the use of the vancomycin. The Rocephin will be continued as primary antibiotic. Continue current dose of corticosteroids. The management of hyperglycemia, sliding insulin coverage. Continue nutritional support for the patient as tolerated. The patient's sedation would be completely discontinued. Await for this patient until she was noted awake prior to consideration of trial of CPAP of 5, pressure support of 10, for 2 hours if tolerated to obtain arterial blood gas to assess ____ sleep ratio from mechanical ventilation. Use of the BiPAP will be considered for sleep ratio for mechanical ventilation. The patient support the respiratory failure. Other supportive therapy, plan of management and care plan. Usual treatment, all other supportive care and therapy. Additional treatment for the patient will be done for this patient based on the progression of the illness. Total time pulmonary critical management of the patient was 34 minutes. ROGER WILSON MD CM:PNTRANS [phone] ROGER SEGAL MD 08/25/17 1222 interface
--- NOTE | ~2017-08-23 | PR ---
[place], [place] PROGRESS NOTE NAME: DESTINY MARADIAGA [facility] #: [id number] UNIT #: [id number] ROOM: [facility] DOCTOR: JR BRANDT MD BIRTHDATE: [birth year] DOS: SUBJECTIVE: The patient was extubated during yesterday morning. She is resting comfortably, does not appear to be in any distress, awake and alert, does answer questions appropriately. OBJECTIVE: VITAL SIGNS: Blood pressure is 161/47, pulse of 82, respirations 18, temperature 98.2. LUNGS: Diminished breath sounds. No wheezes, rales or rhonchi heard. HEART: Regular. ABDOMEN: Obese, soft, nontender. EXTREMITIES: Without any edema. LABORATORY DATA: ____ none available today. No labs available today. ASSESSMENT AND PLAN: 1. Acute hypercapnic respiratory failure, was intubated and oxygen saturation and carbon dioxide improved, now extubated, resting comfortably. We will consider a home ventilator for the patient because of chronic hypercapnia. 2. Cardiomyopathy, ejection fraction 25%, most likely responsible for acute systolic CHF. Low dose of diuretics will be started. 3. Acute kidney injury. Labs will be ordered for tomorrow to see whether there is any improvement. 4. Possible coronary artery disease. Discussed with Dr. Enriquez for a stress test as an outpatient. 5. Type 2 diabetes mellitus, insulin-dependent. Blood sugars not very well controlled. Add insulin. JR BRANDT MD CM:PNTRANS [id number] JR BRANDT MD 08/27/17 0157 interface
--- NOTE | ~2017-08-23 | PR ---
[place], [place] PROGRESS NOTE NAME: DESTINY MARADIAGA [facility] #: [id number] UNIT #: [id number] ROOM: [facility] DOCTOR: JR BRANDT MD BIRTHDATE: [birth year] DOS: 08/25/2017 SUBJECTIVE: The patient is resting on the ventilator. 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 OBJECTIVE: VITAL SIGNS: Graphic trend shows that she is afebrile right now at 8:00 at 98.7 with the T-max of 101.1 during the night. LUNGS: Diminished breath sounds. HEART: Regular, heart rate in the 80s. ABDOMEN: Obese, soft, nontender. EXTREMITIES: Without any edema. LABORATORY DATA: This morning shows an MRSA of the nares, which was negative. BMP: Glucose 374, BUN 62, creatinine 1.50, sodium 142, potassium 3.9, chloride 100, bicarbonate 34. Sputum culture shows normal rashaun. Urine culture shows no bacterial growth. WBC count is 12.5, hemoglobin 9.2, hematocrit 30.3. Blood cultures, no bacterial growth. Chest x-ray shows probable mild congestive heart failure. ASSESSMENT AND PLAN: 1. Acute hypercapnic respiratory failure. The patient is on a ventilator. ABG continues to show improvement in the pC02, pO2 remains fairly stable. The patient should be able to come off the ventilator, currently not getting any sedation. 2. Acute kidney injury, she is back to her baseline. IV fluids were discontinued yesterday. 3. Cardiomyopathy, ejection fraction ____%, which is a drop from normal ejection fraction a few months ago. This may indicate underlying coronary artery disease or a stunned myocardium. The patient to have a stress test when she is more able and possible cardiac catheterization. 4. Type 2 diabetes mellitus, insulin-dependent, restart a low dose of insulin. 5. Fever of unknown etiology. So far, cultures all negative. She is well covered with vancomycin and Rocephin. 6. Chronic obstructive pulmonary disease without any exacerbation. Chest x-ray showing mild congestive heart failure. We will continue following her up. She clinically does not appear to be in CHF and because of recent kidney injury, we will hold off on diuretics right now. 7. Elevated troponin, most likely from acute kidney injury rather than MO. Discussed with Dr. Enriquez in detail. [place], [place] PROGRESS NOTE NAME: DESTINY MARADIAGA UNIT #: [id number] ROOM: [facility] DOCTOR: JR BRANDT MD BIRTHDATE: [birth year] JR BRANDT MD CM:BRAD 1 [id number] JR BRANDT MD 08/26/17 0333 interface
--- NOTE | ~2017-08-23 | PR ---
[place], [place] PROGRESS NOTE NAME: DESTINY MARADIAGA [facility] #: [id number] UNIT #: [id number] ROOM: [facility] DOCTOR: KATIE SEGAL MD,ROGER BIRTHDATE: [birth year] DOS: 08/26/2017 SUBJECTIVE: She has been successfully liberated from mechanical ventilator at this time. She has been currently comfortably resting, using the BiPAP that was ordered yesterday, BiPAP has been used for the patient as recommended most of the time except meals. She was started on clear liquids, seem to be tolerating without any difficulty. She has not been noted any symptoms of hemodynamic instability. The temperature curve was noted normal as well. There was no evidence of hypotension. However, elevation of systolic pressure was noted intermittently. OBJECTIVE: VITAL SIGNS: Temperature noted normal this morning, rectal temperature was also noted normal, respiratory rate of 16-18, heart rate 76-82, blood pressure 184/66-133/72. Intake is 480 over 13 and 150 mL. The pulse oxygen saturation on 3 liters nasal cannula 98% saturation of BiPAP, 90% oxygen supplementation as well. HEENT: Severe chronic morbid obesity. NECK: Supple and obese. Orogastric tube and endotracheal tube were both removed. CARDIOVASCULAR: S1, S2 audible. LUNGS: The patient was noted with moderate decreased breath sounds in the lungs bilaterally. ABDOMEN: Soft, very obese. Bowel sounds present. EXTREMITIES: Showed chronic changes. LABORATORY DATA: Arterial blood gas yesterday, pH of 7.37, pCO2 60, 140% oxygen, CPAP 5, pressure support of 10. Blood cultures, no bacterial growth. Chest x-ray done this morning shows evidence of right pleural fluid as well as acute infiltration. The x-ray was noted well positioned. The left lung was noted clear. There were no findings of congestive heart failure. IMPRESSION: 1. The patient with acute pneumonia involving the right lower lobe, currently treated effectively with the antibiotics. 2. Pleural fluid related to the current acute pneumonia, noted small possibility of loculation can be completely excluded. 3. Morbid obesity. 4. Acute exacerbation of chronic obstructive pulmonary disease as well. 5. Suspected obstructive sleep apnea disorder and obesity hypoventilation. PLAN OF MANAGEMENT: Continue the BiPAP as tolerated by the patient setting of 24/07 for this patient, maintain a saturation 90% greater most of the time. Advance the diet from clear liquids to the diabetic diet as well. Continuation of DVT prophylaxis, GI prophylaxis. Monitor chest x-ray to be continued. Close monitor and current pleural fluid will be done. Other supportive plan of therapy, care plan. Other medical management and plan of care. The patient has been progressed. Additional treatment changes will be made based on progression of the illness. [place], [place] PROGRESS NOTE NAME: DESTINY MARADIAGA [place] UNIT #: [id number] ROOM: [facility] DOCTOR: ROGER JEROME MD BIRTHDATE: [birth year] ROGER WILSON MD CM:PNTRANS 1238 ROGER SEGAL MD 08/27/1731 interface
--- NOTE | ~2017-08-23 | PR ---
[place], [place] PROGRESS NOTE NAME[facility] [id number] UNIT #: [id number] ROOM: 402 DOCTOR: JR BRANDT MD BIRTHDATE: [birth year] DOS: SUBJECTIVE: The patient is not having any new complaints. She is sitting up in her bed, eating her breakfast, does not appear to be in any distress. OBJECTIVE: VITAL SIGNS: Graphic trend shows blood pressure 163/55, pulse of 90, respirations 18, temperature 98.1. LUNGS: Clear. HEART: Regular. ABDOMEN: Obese, soft, nontender. EXTREMITIES: Without any edema. ASSESSMENT AND PLAN: 1. Acute hypercapnic respiratory failure, stable and improved. The plan is to discharge her to home today, continue BiPAP at the [facility] and hopefully she can have that at home. 2. Adult failure to thrive, to undergo PT, OT at the [facility]. 3. Right middle lobe pneumonia with bilateral atelectasis, on antibiotics. Leave IJ in and continue IV antibiotics. JR BRANDT MD CM:PNTRANS JR BRANDT MD 08/30/17 0943 interface
--- NOTE | ~2017-08-23 | PR ---
[place], [place] PROGRESS NOTE NAME: DESTINY MARADIAGA [facility] #: [id number] UNIT #: [id number] ROOM: 402 DOCTOR: JR BRANDT MD BIRTHDATE: [birth year] DOS: SUBJECTIVE: The patient said she hurts all over her body. Her breathing is fairly within normal limits. She does not have any chest pains or palpitations, does not have any nausea, any emesis. PHYSICAL EXAMINATION: VITAL SIGNS: Graphic trend shows pressure 180/62, pulse of 60, respirations 20, temperature 98.1. LUNGS: Diminished breath sounds. HEART: Regular. ABDOMEN: Obese, soft. EXTREMITIES: Without any edema. ASSESSMENT AND PLAN: 1. Benign hypertension, poorly controlled. Add clonidine. She is bradycardic, so we will not increase the Coreg and because of her renal insufficiency, we will continue the same dose of lisinopril. 2. Cough with increased mucus production. A CT of the chest was done yesterday, which showed pneumonia right middle lobe with consolidation and bilateral atelectasis. The patient is on IV antibiotics. 3. Cardiomyopathy awaiting a stress test tomorrow to rule out underlying coronary artery disease versus a stunned myocardium. 4. Acute kidney injury. Kidney function seems to have stabilized. BUN still on the high side. Continue low dose diuretics and lisinopril. 5. Anemia. Iron level was ordered. I do not have the results yet. 6. Failure to thrive. The patient will have PT, OT consultation to consider SNF placement. 7. Steroid-induced hyperglycemia and known type 2 diabetic. The steroid taper should bring down the blood sugars. Right now, we will continue increasing the insulin for better control of the blood sugar. JR BRANDT MD CM:PNTRANS 1 0 JR BARNDT MD 08/28/17930 interface
--- NOTE | ~2017-08-23 | PR ---
[place], [place] PROGRESS NOTE NAME: DESTINY MARADIAGA [facility] #: [id number] UNIT #: [id number] ROOM: 402 DOCTOR: KATIE SEGAL MD,ROGER BIRTHDATE: [birth year] DOS: 08/30/2017 ADDENDUM SUBJECTIVE: The patient was independently seen and examined in [id number] encounter. The history was confirmed. Lab was reviewed. Physical examination was performed. The assessment, management today's note were personally made. The note done by the medical lab director was approved. The patient has been showing progressive improvement and resolution of the acute respiratory symptoms. There was no coughing, wheezing or chest pain. OBJECTIVE: VITAL SIGNS: Reviewed was noted, afebrile. CHEST: Auscultation of the chest was noted. Decreased breath sounds are noted, right lower lung base, otherwise normal. ABDOMEN: Noted severe obesity. PLAN OF TREATMENT: The patient could be discharged on antibiotic as discussed yesterday with Dr. Mary Ann Gilman, IV and oral formulation for 10 days. Follow up chest x-ray in a week to reassess the progression of the pneumonia and the pleural fluid. The BiPAP should be used at the nursing facility as well. ROGER WILSON MD CM:BRAD [id number] ROGER SEGAL MD 09/06/17 1903 interface
--- NOTE | ~2017-08-23 | CON ---
[place], [place] REPORT OF CONSULTATION NAME: DESTINY MARADIAGA [facility] #: [id number] UNIT #: [id number] ROOM: [facility] DOCTOR: JT GUEVARA MD BIRTHDATE: [birth year] DOS: 08/25/2017 HISTORY OF PRESENT ILLNESS: A 67-year-old female admitted with respiratory failure. The patient was found in [facility] to be unresponsive and apparently she was not using her oxygen. The patient was significantly hypoxic and the patient got intubated. The patient was hypercapnic also. She was not responding and now her mental status appears to be much better. The patient had an echocardiogram that showed an ejection fraction of about 25-30%, this is somewhat significantly decreased compared to before. The patient has been admitted multiple times in the past. PAST MEDICAL HISTORY: Significant for chronic systolic heart failure, chronic respiratory failure, COPD, coronary artery disease, diabetes, hypertension, history of myocardial infarction, obstructive sleep apnea, pleural effusion, protein calorie malnutrition. PAST SURGICAL HISTORY: Previous cardiac catheterization, bypass surgery, hypertension. SOCIAL HISTORY: Not reliable. FAMILY HISTORY: Noncontributory. REVIEW OF SYSTEMS: Not possible. The patient is intubated and sedated. REPORTED HOME MEDICATIONS: Clopidogrel, insulin, atorvastatin, and carvedilol. PHYSICAL EXAMINATION: VITAL SIGNS: She is in sinus rhythm, blood pressure is 140/60. HEENT: Elevated JVD. The patient is intubated, sedated, but arousable, but opens her eyes on commands, but moving her extremities. ABDOMEN: Soft. EXTREMITIES: Intact pulses. NEUROLOGICAL: As mentioned, lethargic, but arousable. She is intubated. LABORATORY DATA: Sodium 143, potassium 4.7, BUN 58, creatinine 2.1, hemoglobin 9.5, hematocrit 31.2. As mentioned, her ejection fraction is diminished to be 25%. Her troponin is also elevated. The peak troponin was 1.6. Echo revealed ejection fraction of 25%. Technically difficult study. No MR. IMPRESSION: The patient with acute respiratory failure, acute renal failure, severe cardiomyopathy with severe LV dysfunction and probable non-ST elevation myocardial infarction, renal failure, severe comorbid situation at this point, encephalopathy. RECOMMENDATIONS: Continue the present care. Continue the beta blockers, continue with anticoagulation as ordered. Continue the lipid lowering agents and consideration. The patient is already on clopidogrel a day once she is extubated. The patient is spiking temperatures, treat the underlying either aspiration or pneumonia also. When she is extubated and more stable, [place], [place] REPORT OF CONSULTATION NAME: DESTINY MARADIAGA UNIT #: [id number] ROOM: [facility] DOCTOR: JT GUEVARA MD BIRTHDATE: [birth year] consideration should be given at least to do a stress test as her ejection fraction is diminished and I will follow up. CONDITION: Guarded. JT GUEVARA MD CM:CONSTR:REPORT OF CONSULTATION 0658 08/25/17 0734 interface
--- NOTE | ~2017-08-23 | PR ---
[place], [place] PROGRESS NOTE NAME: DESTINY MARADIAGA UNIT #: [id number] ROOM: 402 DOCTOR: EMI DE JESUS DO BIRTHDATE: [birth year] DOS: 08/30/2017 This note is to be attached to the progress note dictated separately by Dr. Wilson. SUBJECTIVE: The patient was evaluated today. She is awake, responsive, in no acute distress. She states she has some residual cough, but is feeling much more comfortable today than she has. She denies chest pain, nausea, vomiting, diarrhea or any other symptoms. OBJECTIVE: VITAL SIGNS: Temperature 99.1, pulse 85, respiratory rate 18, blood pressure 156/80, pulse oximetry is 99% on 3 liter nasal cannula. GENERAL: The patient awake, alert, oriented, in no acute distress. PULMONARY: Some scattered wheezes and diminished breath sounds, but no crackles, rhonchi or rales. HEART: Regular rate and rhythm. S1, S2 heard. ABDOMEN: Soft, nontender, nondistended. NEUROLOGIC: No acute focal neural deficits. PSYCHIATRIC: Appropriate mood, appropriate affect. SKIN: No new lesions. No erythema. No edema. LOWER EXTREMITIES: No edema. No erythema. IMPRESSION AND PLAN: 1. Pneumonia with small amount of loculated right pleural fluid. 2. Acute hypercapnic and hypoxic respiratory failure. 3. Chronic obstructive pulmonary disease. 4. Morbid obesity. PLAN: Plan has been discussed with Dr. Gilman by Dr. Wilson. The patient is doing well and can be discharged home today at the discretion of Dr. Gilman. For more details, please see Dr. Wilson's note. EMI LIZA [place], [place] PROGRESS NOTE NAME: DESTINY MARADIAGA UNIT #: [id number] ROOM: 402 DOCTOR: ARMANIRHONDA BRYANTLULA BIRTHDATE: [birth year] ROGER WILSON MD CM:PNTRANS 1026 [id number] EMI DE JESUS DO 08/30/17 1053 interface
--- NOTE | ~2017-08-23 | CON ---
[place], [place] REPORT OF CONSULTATION NAME: DESTINY MARADIAGA [facility] #: [id number] UNIT #: [id number] ROOM: 402 DOCTOR: CANDICE KUHN MD BIRTHDATE: [birth year] DOS: 08/29/2017 HISTORY OF PRESENT ILLNESS: The patient is a 67-year-old female. ATTENDING: Dr. Mary Ann Gilman. The patient has a past medical history of; 1. Longstanding centrilobular emphysema. 2. Chronic hypercapnic respiratory failure. 3. Chronic hypoxemic respiratory failure. 4. Morbid obesity. 5. History of past nicotine smoke dependence. 6. Type 2 diabetes mellitus. 7. Generalized anxiety disorder. 8. Major depression, moderate. 9. History of cardiomyopathy with decreased left ventricular ejection fracture, systolic type, chronic CHF. 10. History of left hip replacement. 11. Coronary artery bypass grafts and coronary artery disease of the [place] vessels. 12. History of cholecystectomy. The patient with recurrent admissions to [facility] for adult failure to thrive, chronic respiratory failure, 5 admissions this year, is normally followed by Dr. Mary Ann Gilman who is her primary care physician. This consult was obtained to discuss different treatment options with the patient. The patient without chest pain, but she has chronic shortness of breath and trying to stay on BiPAP and getting used to BiPAP. The patient is being discharged to [facility] tomorrow for shelter and rehab. The patient was on intubation and mechanical ventilation during this admission. The patient was seen and followed by safe technician, Dr. Subramanian. The patient chronically wears oxygen at home and there was chronic elevation of pCO2. Patient normally lives at home with her family and ambulates with help of a cane or walker. REVIEW OF SYSTEMS: LUNGS: Chronic shortness of breath and oxygen dependence and chronic respiratory failure. GASTROINTESTINAL: No nausea, vomiting, diarrhea or constipation. CARDIOVASCULAR: No chest pains or palpitations. She does have history of coronary artery disease. FAMILY HISTORY: Noncontributory. SOCIAL HISTORY: Previous history of nicotine smoke dependence. Denies alcohol or drug abuse. PRESENT MEDICATIONS: Hydralazine, clonidine, Coreg, Daliresp, guaifenesin, Lipitor, Tylenol, Solu-Medrol, furosemide, lisinopril, Plavix, DuoNebs, Vicodin, ceftriaxone, chlorhexidine. [place], [place] REPORT OF CONSULTATION NAME: DESTINY MARADIAGA UNIT #: [id number] ROOM: 402 DOCTOR: CANDICE KUHN MD BIRTHDATE: [birth year] ALLERGIES: KNOWN ALLERGIES TO MORPHINE, HYDROXYZINE AND LATEX. PHYSICAL EXAMINATION: Alert and oriented x 3, very weak, morbidly obese and wearing oxygen, but in no visible distress. She has a standard exam except for the above-mentioned and generalized weakness. She is wearing oxygen by nasal cannula. LABORATORY DATA: The patient's arterial blood gases with a pH of 7.37, pCO2 of 60.4 which is after treatment, pO2 of 141, saturating 99% with 40% FiO2. Chest x-ray showed right basilar atelectasis. Iron level of 40, which was low. Cardiac stress test showed no acute abnormality. Blood cultures negative. IMPRESSION: Acute over chronic respiratory failure, which is resolving. The patient has chronic pCO2 retention and chronic ventilatory failure at least partly related to centrilobular emphysema and partly because of the obesity and generalized weakness and adult failure to thrive. The patient is a good candidate for palliative care, but at this time, she wants to maintain the full code status and would like to go for rehabilitation to the intermediate and from there she would like to go home. The patient with multiple admissions like 5 admissions to the hospital recently this year and I suspect that she will be coming back to the hospital for her chronic respiratory failure, morbid obesity and severe advanced adult failure to thrive. I did explain to the patient that she has other options including DNR comfort care code status and whether she would like to be treated very aggressively the future. The patient understands this. 1. Chronic respiratory failure and advanced chronic obstructive pulmonary disease and centrilobular emphysema. The patient also had some atelectasis and ventilatory failure related to morbid obesity. Gradual weight reduction and respiratory therapy to build her muscles and may help the patient significantly. I am starting her on incentive spirometry and I encouraged the patient to continue this at the intermediate and also at home. 2. Chronic respiratory failure. The patient is trying to get used to BiPAP at the hospital and would like to continue it at the intermediate and also at home. Dr. Subramanian can help the patient with the sleep studies and help her to qualify for BiPAP, which should help her chronic respiratory failure. 3. Benign essential hypertension, being treated and controlled. 4. Iron deficiency anemia and anemia of chronic disease being treated. Recent pneumonia and loculated pleural effusion could not be ruled out. Dr. Subramanian will evaluate the patient. 5. Suspected obstructive sleep apnea and obesity hypoventilation syndrome as mentioned above. 6. Acute right lower lobe pneumonia, treated effectively with antibiotics. Treatment plan of that patient is going to shelter facility for rehab and is interested in using BiPAP for chronic respiratory failure. I am recommending gradual weight loss and extensive respiratory therapy to build her respiratory muscles and use incentive spirometry for now. The patient's long-term prognosis remains suboptimal and she definitely has [place], [place] REPORT OF CONSULTATION NAME: DESTINY MARADIAGA UNIT #: [id number] ROOM: [facility] DOCTOR: CANDICE KUHN MD BIRTHDATE: [birth year] advanced adult failure to thrive, resulting in recurrent admissions to the hospital. For now, the patient wants to maintain a full code status, but she is able to understand other options available to her including DNR comfort care code status. Thank you, Dr. Gilman for asking me to see the patient. CANDICE KUHN MD CM:CONSTR:REPORT OF CONSULTATION 1941 08/30/17 0045 interface
--- NOTE | ~2017-08-23 | PR ---
[place], [place] PROGRESS NOTE [id number] UN[facility] #: [id number] ROOM: 402 DOCTOR: EFRAIN DOUGHERTY MD BIRTHDATE: [birth year] DOS: SUBJECTIVE: I am seeing her on behalf of Dr. Enriquez. She was seen by Dr. Enriquez about 3 days ago. She had presented to the hospital after having informed responsive. At that time, she is in respiratory failure. Troponin I level was somewhat increased, but the EKG showed no abnormality. She is much better. She has oxygen on. She is mildly tachypneic, but she is very anxious and nervous and scared. She has not done any walking. She has no palpitations, but has a cough. OBJECTIVE: VITAL SIGNS: She has mild tachypnea, rate is 22 per minute. Pulse is 72 regular, blood pressure ____, blood pressure has been persistently elevated since admission. NECK: JVP appears to be normal. LUNGS: Breath sounds are diminished with few adventitious sounds. EXTREMITIES: No edema in the lower extremities. LABORATORY DATA: Hemoglobin was 9.4 g yesterday and glucose was elevated. IMPRESSIONS: 1. This patient had mildly elevated troponin I level, which probably was from respiratory failure and hemodynamic instability. She has been fairly stable and [facility] and Dr. Enriquez will be doing that. 2. Moderate anemia. 3. Anxiety and depression. I do not think it appears to be a serious issue at this time as well. 4. No new recommendations. EFRAIN DOUGHERTY MD CM:PNTRANS [id number] EFRAIN DOUGHERTY MD 08/28/17 2243 interface
--- NOTE | ~2017-08-23 | PR ---
[place], [place] PROGRESS NOTE NAME: DESTINY MARADIAGA [facility] #: [id number] UNIT #: [id number] ROOM: 402 DOCTOR: JR BRANDT MD BIRTHDATE: [birth year] DOS: SUBJECTIVE: The patient is doing well. She is post-stress test this morning. OBJECTIVE: VITAL SIGNS: Graphic trend shows blood pressure of 162/81, pulse of 70, respirations 20, temperature 98.1. LUNGS: Diminished breath sounds. HEART: Regular. ABDOMEN: Obese, soft. EXTREMITIES: Without any edema. ASSESSMENT AND PLAN: 1. Acute hypercapnic respiratory failure, off ventilator, stable. 2. Bilateral atelectasis with right middle lobe pneumonia with consolidation. The patient has an IJ and can go to a rehabilitation center on IV antibiotics as advised by Dr. Subramanian. 3. Cardiomyopathy, awaiting a stress to see whether there is any underlying coronary artery disease on maximal treatment plan: No evidence of congestive heart failure clinically. 4. Anemia, iron deficiency. Iron supplements will be ordered IV this morning. JR BRANDT MD CM:PNTRANS JR BRANDT MD 08/29/1748 interface
--- NOTE | ~2017-08-23 | CON ---
[place], [place] REPORT OF CONSULTATION NAME: DESTINY MARADIAGA [facility] #: [id number] UNIT #: [id number] ROOM: [facility] DOCTOR: ROGER JEROME MD BIRTHDATE: [birth year] DOS: 08/24/2017 PULMONARY CRITICAL CARE EVALUATION AND MANAGEMENT CONSULTATION REQUESTED BY: Hospitalist services by Dr. Mary Ann Gilman for assessment of acute respiratory failure. HISTORY OF PRESENT ILLNESS: A 67-year-old female patient, long-term resident of the nursing facility at [facility]. The patient was brought to the hospital by the EMS as the patient has been noted with increased symptoms of shortness of breath with progressive change in mental status with drowsiness and lethargy. The patient's workup was also done recently as an outpatient by Dr. Mary Ann Gilman. She was noted with acute kidney injury with hyperkalemia as well. As the patient presented to the Emergency Room, she has been noted with progressive lethargy with respiratory failure, requiring intubation and mechanical ventilation and severe hypercarbia was observed on the arterial blood gases. She has been started on volume-control, assist-controlled mechanical ventilation yesterday. She has not been able to give me any history. All the history essentially has been reviewed for the patient's past documentation with the patient from my previous consultation and the other physician's notes and the current physician notes and the nursing notes as well. Last hospitalization review for this patient was noted in July 2017. The patient has been treated during that hospitalization with medical management of psychosis, respiratory failure, hypercapnia, and other medical issues. PAST MEDICAL HISTORY: The patient is known with history of: 1. Longstanding centrilobular emphysema. 2. Chronic hypercapnic respiratory failure. 3. Chronic hypoxic respiratory failure. 4. History of past nicotine abuse. 5. Type 2 diabetes mellitus. 6. Generalized anxiety disorder. 7. Major depression as well. 8. Cardiomyopathy. The patient was noted with decreased left ventricular ejection fraction and systolic dysfunction. PAST SURGICAL HISTORY: 1. Sinus surgery. 2. Tubal ligation. 3. Left hip replacement. 4. Coronary artery bypass grafting. 5. Cardiac catheterization with coronary artery stent insertion. 6. Cholecystectomy. SOCIAL HISTORY: The patient lives at home in the past, but currently residing in the longterm facility. The patient has been noted with history of tobacco use in the past, but not sure if the patient smoking cigarettes actually at this time or not. FAMILY HISTORY: The patient's father from complication related to [place], [place] REPORT OF CONSULTATION NAME: DESTINY MARADIAGA UNIT #: [id number] ROOM: [facility] DOCTOR: KATIE SEGAL MD,ROGER BIRTHDATE: [birth year] hypertension. Mother from complication of cardiac problems. MEDICATIONS: The patient's current administered medications noted with use of Lexapro, Plavix, Lovenox for DVT prophylaxis, calcium gluconate that was given yesterday, IV Rocephin, chlorhexidine rinse, IV Versed p.r.n. use at 5 mg as well. ALLERGIES: THE PATIENT'S DRUG ALLERGY NOTED : 1. HYDROXYZINE. 2. MORPHINE. 3. DIPRIVAN CAUSING SEVERE BRADYCARDIA. PHYSICAL EXAMINATION: GENERAL: A 67-year-old female, currently noted intubated on mechanical ventilation. VITAL SIGNS: Height of 5 feet 2 inches, weight of 285 pounds, BMI 50.3. Temperature noted as 100 degrees Fahrenheit to 94.4 degrees Fahrenheit; respiratory rate of 10-14; heart rate of 44, as the patient was receiving Diprivan and this morning was noted 90 beats per minute. The blood pressure noted between 157/51 and 110/65. Pulse oxygen saturation, the patient noted on 35% oxygen, 96% saturation. HEENT: Head was atraumatic. Eyes, nonicterus. The patient is currently orally intubated. NECK: Supple. CARDIOVASCULAR SYSTEM: S1, S2 are audible. LUNGS: Decreased breath sounds in the lungs are noted bilaterally, which were diffuse with expiratory wheezing without any crackles. ABDOMEN: Noted with severely obese. Bowel sounds present. EXTREMITIES: Shows chronic changes with the patient venous stasis pigmentation, mild edema and obesity. CENTRAL NERVOUS SYSTEM: Could not be examined as the patient is intubated. MUSCULOSKELETAL SYSTEM: No gross deformities. SKIN: Showed no lesions or rashes. LABORATORY DATA: CBC on 08/23, yesterday; hemoglobin 10.2, hematocrit 35.8, platelet count for the patient was noted as normal. BMP of the patient that was done yesterday; glucose 244, BUN 47, creatinine 2.20, potassium 6.2, and CO2 of 38. Repeat CBC later on in the Emergency Room; WBC count 11.5, hemoglobin 10.9, hematocrit 37.9, platelet count was normal. Arterial blood gas on 5 L; pH is 7.07, pCO2 of 136, pO2 of 64.8. Prior to intubation on mechanical ventilation; the PT/PTT on 08/23 was normal. CMP repeated in the Emergency Room after assessment from the nursing facility. BUN was noted at 50, creatinine 2.28, glucose 319, potassium is still elevated at 6.3, and CO2 was 39. Arterial blood gas follow up for this patient; pH is 7.19, pCO2 of 95.2, pO2 of 14.6, which is just venous blood gas. Arterial blood gas repeated again for the patient which was arterial blood gas; pH is 7.27, pCO2 of 74.5, pO2 95.5 at the time of 60% oxygen supplementation with assist control mechanical ventilation, respiratory rate of 10, tidal volume of 550 mL, peak flow rate of 80 and PEEP of 5. The CBC this morning; WBC count 12.0, hemoglobin 9.5, hematocrit 31.6, platelet count of 192,000. BMP this morning; BUN 58, creatinine 2.15, glucose 156, potassium was [place], [place] REPORT OF CONSULTATION [id number] #: [id number] ROOM: [facility] DOCTOR: KATIE SEGAL MD,[facility] BIRTHDATE: [birth year] noted as normal completely at 4.7, CO2 of 38. Arterial blood gas on 40% oxygen on this morning; pH is 7.29, pCO2 77.8, pO2 of 107. The urine culture from admission; no bacterial growth, final results pending. Endotracheal aspirate from yesterday after admission; many white blood cells, moderate gram-positive bacilli and few gram-negative bacilli with normal rashaun, preliminary noted. Final culture results were pending. IMAGING STUDIES: Chest x-ray that was done on 08/23 with patient post-intubation shows endotracheal tube noted in appropriate position, small basilar area of atelectasis or acute infiltration cannot be completely excluded. IMPRESSION: 1. The patient will be admitted to the hospital noted with severe acute hypercapnic hypoxic respiratory failure, chronic severe hypercapnia as well. 2. Possibility of Pickwickian syndrome with obesity hypoventilation in a patient is very likely. 3. Diagnosis of obstructive sleep apnea disorder would be strongly considered as well. 4. Acute exacerbation of chronic obstructive pulmonary disease with possibility of basilar atelectasis and pneumonia with aspiration cannot be completely excluded. 5. Severe morbid obesity. 6. Severe hyperkalemia secondary to acute kidney injury for the patient, most likely related to the acute tubular necrosis or prerenal azotemia would be considered. 7. Metabolic alkalosis, chronic, secondary to chronic resting hypercarbia. 8. Change in mental status related to all of the above. PLAN OF MANAGEMENT: The mechanical ventilator setting for the patient has been changed by increasing tidal volume at this time to 550 mL. Continue current level of the PEEP per the patient's respiratory rate for this patient as well. Continuation of the bronchodilators for this patient as well. Solu-Medrol will be started due to the treatment for the acute exacerbation of chronic obstructive pulmonary disease management. The patient has been currently getting IV Rocephin. Additional cover for gram-positive organism will be given in the form of the doxycycline that could be given through the orogastric tube. Nutrition support. Ventilator per neb management including DVT prophylaxis. Medical management of acute kidney injury and hyperkalemia. Close monitoring will be continued. Other supportive therapy, plan, management, and care. Monitor lab for the patient on a daily basis as well. Obtain another chest x-ray in the morning to reassess the patient's progression of current lower lobe area of atelectasis or infiltration. Arterial blood gases continued to be monitor on a daily basis and p.r.n. other times as well. Total time for the patient's pulmonary critical care evaluation, management, and consultation is 42 minutes. [place], [place] REPORT OF CONSULTATION NAME: DESTINY MARADIAGA UNIT #: [id number] ROOM: [facility] DOCTOR: ROGER JEROME MD BIRTHDATE: [birth year] ROGER WILSON MD CM:CONSTR:REPORT OF CONSULTATION 1224 08/25/17 1007 interface
[~2017-08-23 11:23] MED LIST changes: +MUCINEX ER600 MG PO
--- NOTE | 2017-08-23 12:00 | NUR ---
THIS RN SPOKE WITH NURSE HALEY AT [facility] FOR FURTHER INFORMATION. PER SUDHA PT RECEIVED "FOUR DIURETICS THIS AM AND 20 MeQ OF POTASSIUM PRIOR TO LAB RESULTS BEING RECEIVED" THESE MEDICATIONS WERE DC'D AT LONG TERM AFTER THE LAB RESULTS CAME IN AND THEREFORE WERE NOT NOTED ON PAPERWORK FROM [facility]. ALSO ACCORDING TO SUDHA PT RECEIVED NEURONTIN LAST EVENING BUT THAT THE PATIENT DID NOT RECEIVE ANY THIS AM.
[2017-08-23 12:08] LABS: BILIRUBIN NEGATIVE (NEGATIVE); BLOOD 3+ (NEGATIVE); CLARITY SL CLOUDY (CLEAR); COLOR YELLOW (YELLOW); GLUCOSE NEGATIVE (NEGATIVE); KETONE TRACE (NEGATIVE); LEUKO ESTERASE NEGATIVE (NEGATIVE); NITRITE NEGATIVE (NEGATIVE); UROBILINOGEN 0.2 E.U./dl (0.2-1.0)
[2017-08-23 12:14] LABS: BASO % 0.3 % (0.0-1.0); EOS % 0.3 % (1.0-4.0); HEMATOCRIT 37.9 % (37.0-47.0); HEMOGLOBIN 10.9 g/dl (12.0-16.0); LYMPH # 1.1 10*3/uL (1.3-4.4); LYMPH % 9.1 % (27.0-41.0); MEAN CORPUSCULAR HGB 28.8 pg (27.0-31.0); MEAN CORPUSCULAR HGB CONC 28.8 g/dl (33.0-37.0); MEAN PLATELET VOLUME 10.1 fl (9.6-12.3); MONO # 0.6 10*3/uL (0.1-1.0); MONO % 5.1 % (3.0-9.0); NEUT # 9.7 10*3/uL (2.3-7.9); NEUT % 84.2 % (47.0-73.0); PLATELET COUNT AUTOMATED 241 10*3/uL (130-400); RED BLOOD COUNT 3.79 10*6/uL (4.10-5.10); RED CELL DISTRI WIDTH 14.8 % (0-14.5); WHITE BLOOD COUNT 11.5 10*3/uL (4.8-10.8)
[2017-08-23 12:18] LABS: ABG BASE EXCESS 5.1 mmol/L (-2.0-2.0); ABG HCO3 39.7 mmol/l (22-26); ABG O2 SATURATION 84.1 % (95-97); ARTERIAL BLOOD GAS PO2 64.8 mmHg (80-90)
--- NOTE | 2017-08-23 12:18 | NUR ---
PT REMAINS UNRESPONSIVE AFTER NARCAN GIVEN. SNORING RESPIRATIONS.
--- NOTE | 2017-08-23 12:20 | NUR ---
CHIP FROM LAB CALLED UNIT TO REPORT CRITICAL LAB RESULTS. NOTIFIED.
[2017-08-23 12:23] LABS: ARTERIAL BLOOD GAS PH 7.073 (7.35-7.45)
[2017-08-23 12:24] LABS: ACT PARTIAL THROMBO TIME 25.5 SECONDS (20.8-31.5)
[2017-08-23 12:26] LABS: BACTERIA TRACE; WAXY CAST 0-2
[2017-08-23 12:33] LABS: ALBUMIN 2.8 gm/dl (3.1-4.5); CREATININE 2.28 mg/dL (0.55-1.02); TOTAL PROTEIN 7.2 gm/dL (6.4-8.2)
[2017-08-23 12:38] LABS: POTASSIUM 6.3 mmol/L (3.5-5.1); TROPONIN I 1.52 ng/ml (<0.045)
--- NOTE | 2017-08-23 13:00 | NUR ---
INTUBATED BY DR ARAGON, SMOOTH INDUCTION. 7.5 ETT, 23 CM AT LIP. SEE RESP FOR VENT SETTINGS.
--- NOTE | 2017-08-23 13:00 | NUR ---
IV SITES TO BL ARMS INFILTRATED. IO ACEESS OBTAKINED LEFT LOWER EXT.
--- NOTE | 2017-08-23 13:53 | NUR ---
DR ARAGON AT BEDSIDE PLACING CENTRAL LINE. PT SEDATED ADEQUATLEY.
--- NOTE | 2017-08-23 14:28 | NUR ---
OG TUBE 18 FRNECH INSERTED WITHOUT DIFFICULTY. 400 CC LIQUID STOMACH CONTENTS SUCTIONED.
--- NOTE | 2017-08-23 14:30 | NUR ---
IO TO LEFT LEG DC'D, SITE ASYMPTOMATIC.
--- NOTE | 2017-08-23 14:50 | NUR ---
PT TRANSPORTED TO CT VIA BED AT THIS TIME.
--- NOTE | 2017-08-23 15:00 | NUR ---
PT NOW TO ICCU BED 1. RN ACCEPTING AT BEDSIDE.
--- NOTE | 2017-08-23 15:03 | NUR ---
A 67, admitted to ICCU, under the services of JR Liriano MD with a diagnosis of HYPERCAPNIC RESPIRATORY FAILURE. Chief complaint is WAS FOUND UNRESPONSIVE AT LOCAL USP W/ O2 OFF AND SAT @ 50%. Patient arrived via stretcher from ER. Monitor applied. Initial assessment completed. Vital signs taken and recorded. JR LIRIANO MD notified of admission to the unit. Orders received. See assessment for past medical history, medications and allergies. Patient and/or family oriented to unit. [facility] ICCU visitation policy reviewed. Clothing/patient valuable form completed. [place]
[2017-08-23 15:28] LABS: ABG HCO3 37.1 mmol/l (22-26); ABG O2 SATURATION 20.8 % (95-97)
--- NOTE | 2017-08-23 15:28 | NUR ---
T 94.4 -R on arrival warming blanket on.
[2017-08-23 15:33] LABS: ARTERIAL BLOOD GAS PCO2 95.2 mmHg (35-45); ARTERIAL BLOOD GAS PH 7.198 (7.35-7.45); ARTERIAL BLOOD GAS PO2 14.6 mmHg (80-90)
[2017-08-23] MEDS ORDERED: POTASSIUM CHLO20 ME4 PO (15:39)
[2017-08-23] MEDS ORDERED: NORCO 10-325 T1 EACH PO (15:43)
[2017-08-23 15:45] LABS: ABG BASE EXCESS 5.9 mmol/L (-2.0-2.0); ABG HCO3 34.9 mmol/l (22-26); ABG O2 SATURATION 97.6 % (95-97); ARTERIAL BLOOD GAS PH 7.275 (7.35-7.45); ARTERIAL BLOOD GAS PO2 95.5 mmHg (80-90)
[2017-08-23] MEDS ORDERED: LEXAPRO20 MG PO (15:45)
[2017-08-23 15:47] LABS: ARTERIAL BLOOD GAS PCO2 74.5 mmHg (35-45)
--- NOTE | 2017-08-23 17:54 | NUR ---
DR WILSON, AL AND ROBSON ALL CONSULTED. ORDERS RECIEVED AND CARRIED OUT.
[2017-08-23 20:15] LABS: CREATININE 2.23 mg/dL (0.55-1.02)
[2017-08-23 20:16] LABS: POTASSIUM 5.5 mmol/L (3.5-5.1)
--- NOTE | 2017-08-23 21:30 | NUR ---
TEMP 99.9 PER CONTINUOUS RECTAL PROBE. FLUID WARMER DISCONTINUED, IVF CONTINUED @ 60ML/HR VIA RIJ MLC. SON ABEL RN
[2017-08-24] VITALS: BP 110/65
[2017-08-24 04:00] VITALS: BP 168/52
--- NOTE | 2017-08-24 04:20 | NUR ---
PT COUGHING AND RESTLESS WITH REPOSITIONING AND SUCTIONING. MEDICATED WITH VERSED PER PRN ORDER, EFFECTIVE IMMEDIATELY. SON ABEL RN
[2017-08-24 04:50] LABS: BASO % 0.3 % (0.0-1.0); EOS % 0.3 % (1.0-4.0); HEMOGLOBIN 9.5 g/dl (12.0-16.0); LYMPH # 1.3 10*3/uL (1.3-4.4); LYMPH % 10.6 % (27.0-41.0); MEAN CELL VOLUME 97.2 fl (81.0-99.0); MEAN CORPUSCULAR HGB 29.2 pg (27.0-31.0); MEAN CORPUSCULAR HGB CONC 30.1 g/dl (33.0-37.0); MEAN PLATELET VOLUME 9.6 fl (9.6-12.3); MONO # 1.2 10*3/uL (0.1-1.0); MONO % 9.9 % (3.0-9.0); NEUT # 9.4 10*3/uL (2.3-7.9); NEUT % 78.4 % (47.0-73.0); PLATELET COUNT AUTOMATED 192 10*3/uL (130-400); RED BLOOD COUNT 3.25 10*6/uL (4.10-5.10); RED CELL DISTRI WIDTH 14.8 % (0-14.5)
[2017-08-24 04:54] LABS: HEMATOCRIT 31.6 % (37.0-47.0)
[2017-08-24 05:17] LABS: CREATININE 2.15 mg/dL (0.55-1.02); POTASSIUM 4.7 mmol/L (3.5-5.1)
--- NOTE | 2017-08-24 06:49 | NUR ---
PT AWAKE, COMMUNICATING WITH STAFF BY NODDING HEAD AND MAKING EYE CONTACT. ANXIOUS. VERSED WAS GIVEN AND IMMEDIATELY EFFECTIVE.
[2017-08-24 07:48] LABS: ABG BASE EXCESS 8.4 mmol/L (-2.0-2.0); ABG HCO3 36.2 mmol/l (22-26); ABG O2 SATURATION 97.5 % (95-97); ARTERIAL BLOOD GAS PH 7.295 (7.35-7.45)
[2017-08-24 07:50] LABS: ARTERIAL BLOOD GAS PCO2 77.8 mmHg (35-45)
[2017-08-24 08:00] VITALS: BP 157/51
--- NOTE | 2017-08-24 08:00 | NUR ---
PRINCIPLE SOFTWARE ENGINEER VS. PT IS ON VENT. COMES FROM [facility]. WILL NEED PRECERT TO RETURN.
[2017-08-24 12:00] VITALS: BP 142/68
[2017-08-24 16:00] VITALS: BP 158/60
--- NOTE | 2017-08-24 19:50 | NUR ---
DR. BRANDT NOTIFIED OF ELEVATED TEMP 101 PER CONTINOUS PROBE. MEDICATIONS REVIEWED. NEW ORDERS RECEIVED. SON ABEL RN
[2017-08-24 20:00] VITALS: BP 114/60
[2017-08-25] VITALS: BP 114/54
--- NOTE | 2017-08-25 02:15 | NUR ---
PATIENT AWAKE AND ALERT, FOLLOWING COMMANDS. PATIENT ASSISTING WITH COMPLETE BATH, LINEN CHANGE AND DRESSING. PATIENT REQUESTING SOMETHING TO HELP HER RELAX. PATIENT MEDICATED WITH VERSED PER PRN ORDER, EFFECTIVE IMMEDIATELY. WILL CONTINUE TO MONITOR. SON ABEL RN
[2017-08-25 04:00] VITALS: BP 136/65
[2017-08-25 05:59] LABS: POTASSIUM 3.9 mmol/L (3.5-5.1)
[2017-08-25 06:03] LABS: CREATININE 1.5 mg/dL (0.55-1.02)
[2017-08-25 06:10] LABS: HEMATOCRIT 30.3 % (37.0-47.0); HEMOGLOBIN 9.2 g/dl (12.0-16.0); MEAN CELL VOLUME 94.4 fl (81.0-99.0); MEAN CORPUSCULAR HGB 28.7 pg (27.0-31.0); MEAN CORPUSCULAR HGB CONC 30.4 g/dl (33.0-37.0); MEAN PLATELET VOLUME 10.3 fl (9.6-12.3); PLATELET COUNT AUTOMATED 198 10*3/uL (130-400); RED BLOOD COUNT 3.21 10*6/uL (4.10-5.10); RED CELL DISTRI WIDTH 14.8 % (0-14.5); WHITE BLOOD COUNT 12.5 10*3/uL (4.8-10.8)
[2017-08-25 07:26] LABS: ABG BASE EXCESS 7.3 mmol/L (-2.0-2.0); ABG HCO3 33.1 mmol/l (22-26); ABG O2 SATURATION 96.6 % (95-97); ARTERIAL BLOOD GAS PCO2 56.8 mmHg (35-45); ARTERIAL BLOOD GAS PH 7.383 (7.35-7.45); ARTERIAL BLOOD GAS PO2 87.4 mmHg (80-90)
[2017-08-25 07:38] LABS: PLATELET SUFFICIENCY NORMAL (NORMAL); TOTAL CELLS COUNTED 100 #CELLS
[2017-08-25 08:00] VITALS: BP 141/63
[2017-08-25 12:00] VITALS: BP 121/67
[2017-08-25 13:28] LABS: ABG BASE EXCESS 8.1 mmol/L (-2.0-2.0); ABG HCO3 34.4 mmol/l (22-26); ABG O2 SATURATION 79.2 % (95-97); ARTERIAL BLOOD GAS PCO2 62.8 mmHg (35-45); ARTERIAL BLOOD GAS PH 7.361 (7.35-7.45); ARTERIAL BLOOD GAS PO2 48.4 mmHg (80-90)
[2017-08-25 13:44] LABS: ABG BASE EXCESS 8.4 mmol/L (-2.0-2.0); ABG HCO3 34.5 mmol/l (22-26); ARTERIAL BLOOD GAS PCO2 60.4 mmHg (35-45); ARTERIAL BLOOD GAS PH 7.376 (7.35-7.45)
--- NOTE | 2017-08-25 13:50 | NUR ---
Patient extubated on physician's order. Placed on bipap 18/10 titrte. Pulse oximeter on with alarms set at 10% below patient's baseline. Pharyngeal reflex present prior to extubation. Patient encouraged to cough and deep breathe. Patient observed for skin color and temperature, monitor rhythm, respiratory rate and effort, and level of consciousness. NPO for 4 hours. Patient tolerated procedure WELL. BAILEY FULLER
--- NOTE | 2017-08-25 13:57 | NUR ---
PT EXTUBATED AT 1350 AND PLACED ON BIPAP 18/10, 40% PER DR. WILSON
[2017-08-25 15:07] LABS: LEGIONELLA URINARY ANTIGEN Negative (Negative)
[2017-08-25 16:00] VITALS: BP 112/54
[2017-08-25 20:00] VITALS: BP 133/72
--- NOTE | 2017-08-25 20:00 | NUR ---
PATIENT REMAINS INTUBATED AND SEDATED. POX 99% DURING BREATHING TREATMENT. FIO2 IS 40%. SUCTIONED FOR CLEAR SPUTUM ORALLY AND VIA ENDO TUBE. PATIENT EASILY AGITATED. VSS. DIPRIVAN GTT, NS, AND GLUCERNA ALL RUNNING W/O DIFFICULTY. KRUGER PATENT FOR LIGHT VIKI URINE.
[2017-08-26] VITALS: BP 184/66
--- NOTE | 2017-08-26 00:48 | NUR ---
NOTIFIED DR. BRANDT ABOUT PATIENT ELEVATED BP OF 184/66. ORDERS GIVEN TO GIVE CATAPRES 0.2 NOW.
--- NOTE | 2017-08-26 01:04 | NUR ---
PATIENT IS RESTING ON THE RIGHT SIDE IN BED. PATIENT IS REFUSING TO WEAR THE BIPAP MASK AND WAS SWITCH TO 3LPM NC. PATIENT IS PLEASANT AND COOPERATIVE UPON ASSESSMENT. PT IS A&OX3 AND DENIES ANY SOB AT THIS TIME. HOB ELEVATED, KRUGER DRAINING STRAW YELLOW. CALL LIGHT WITHIN REACH. SEE ASSESSMENT.
[2017-08-26 04:00] VITALS: BP 161/47
--- NOTE | 2017-08-26 06:49 | NUR ---
PATIENT IS RESTING COMFORTABLY IN BED. PATIENT DENIES ANY SOB, PAIN OR DISCOMFORT THROUGHOUT THE NIGHT. PATIENT WAS ABLE TO SLEEP THROUGHOUT THE NIGHT. PATIENT HAS BEEN 98% ON 3LPM NC. SKING IS W/D/I. PATIENT HAS NO FURTHER REQUEST AT THIS TIME. CALL LIGHT IS WITHIN REACH.
[2017-08-26 08:00] VITALS: BP 191/66
[2017-08-26 12:00] VITALS: BP 181/63
[2017-08-26 16:00] VITALS: BP 194/65
[2017-08-26 20:00] VITALS: BP 120/69
--- NOTE | 2017-08-26 21:52 | NUR ---
MEDICATED WITH PRN NORCO PER ORDER AND REQUEST.
[2017-08-27] VITALS: BP 136/70
--- NOTE | 2017-08-27 00:38 | NUR ---
NIKOLAS GIVEN EARLIER HELPED SOME.
[2017-08-27 04:00] VITALS: BP 144/58
[2017-08-27 04:27] LABS: BASO % 0.1 % (0.0-1.0); EOS % 0.2 % (1.0-4.0); HEMATOCRIT 29.8 % (37.0-47.0); HEMOGLOBIN 9.4 g/dl (12.0-16.0); LYMPH # 0.6 10*3/uL (1.3-4.4); LYMPH % 7.1 % (27.0-41.0); MEAN CELL VOLUME 92.8 fl (81.0-99.0); MEAN CORPUSCULAR HGB 29.3 pg (27.0-31.0); MEAN CORPUSCULAR HGB CONC 31.5 g/dl (33.0-37.0); MEAN PLATELET VOLUME 9.6 fl (9.6-12.3); MONO # 0.5 10*3/uL (0.1-1.0); MONO % 5.7 % (3.0-9.0); NEUT # 7.8 10*3/uL (2.3-7.9); NEUT % 85.9 % (47.0-73.0); NUCLEATED RED BLOOD CELL 0.2 % (0.0-0.0); PLATELET COUNT AUTOMATED 187 10*3/uL (130-400); RED BLOOD COUNT 3.21 10*6/uL (4.10-5.10); RED CELL DISTRI WIDTH 14.4 % (0-14.5); WHITE BLOOD COUNT 9.1 10*3/uL (4.8-10.8)
[2017-08-27 04:45] LABS: CREATININE 1.11 mg/dL (0.55-1.02); POTASSIUM 4.7 mmol/L (3.5-5.1)
[2017-08-27 08:00] VITALS: BP 188/71
[2017-08-27 12:00] VITALS: BP 216/84
--- NOTE | 2017-08-27 13:34 | NUR ---
CALLED REGARDING BLOOD PRESSURE 216/84. NEW ORDER RECEIVED TO INCREASE COREG TO 12.5MG BID.
--- NOTE | 2017-08-27 14:00 | NUR ---
CAME BACK AND GAVE NEW ORDERS.
[2017-08-27 16:00] VITALS: BP 172/79
--- NOTE | 2017-08-27 19:25 | NUR ---
Patient transferred out from [facility]. Tolerated well. No voiced complaints at this time.
[2017-08-27 20:38] VITALS: BP 168/72
[2017-08-28] VITALS (7 sets, daily range): BP systolic 160–194; BP diastolic 46–94
--- NOTE | 2017-08-28 00:45 | NUR ---
24 HR chart check completed.
--- NOTE | 2017-08-28 02:47 | NUR ---
Medicated with [place] po prn given as per order and request of patient. Will monitor effectiveness. Call light within reach.
--- NOTE | 2017-08-28 02:52 | NUR ---
Medicated with Clonidine po prn for elevated blood pressure of 180/94. Will monitor effectiveness. Call light within reach.
--- NOTE | 2017-08-28 08:49 | NUR ---
SPOKE WITH BAILEY AT THE PALLIATIVE CARE OFFICE. NOTIFIED OF NEW REFERRAL.
--- NOTE | 2017-08-28 11:12 | NUR ---
MEDICATED WITH TYLENOL PER PRN FOR COMPLAINTS OF GENERALIZED BODY ACHES. WILL MONITOR FOR EFFECTIVENESS.
--- NOTE | 2017-08-28 11:59 | NUR ---
Occupational Therapy evaluation completed on 4 with full eval to follow. Precautions include fall risk, poor activity tolerance, O2 @3 lpm,bipap use, moderate complexity level 01551. Recommend OT per POC and SNF upon d/c to enable return home at [facility]. Thank you for this referral. Monserrat Lugo OTR/l
--- NOTE | 2017-08-28 12:08 | NUR ---
PHYSICAL THERAPY PAtient evaluated on 4, full evaluation to follow. Continue with PT as per plan of care with fall, significant acute debility and recently off vent precautions. Will require SNF versus LTAC for impaired mobility in order to return to home at [facility]. PAtint is high complexity via chart review, tests and evaluation: 34675. Thank you for this referral. Clotilde Witt,PT
--- NOTE | 2017-08-28 12:36 | NUR ---
TWO STAGE 2 WOUNDS NOTED DURING PT'S BATH TO RIGHT BUTTOCK, PT STATES THAT SOMEONE HAD TOLD HER IT LOOKED LIKE IT HAD OCCURRED FROM TAPE BEING REMOVED. WOUND ASSESSED AND WOUND PHOTOS TAKEN. WOUND CARE NURSE AND DR BRANDT NOTIFIED. WOUND DRESSED USING HONEY AND OPTIFOAM.
--- NOTE | 2017-08-28 13:01 | NUR ---
Faxed progress notes, OT and PT alexander asked Marely to start precert for patient to return.
--- NOTE | 2017-08-28 14:29 | NUR ---
MEDICATED WITH NORCO PER PRN ORDER FOR C/O BACK, LEG PAIN. PT RATES PAIN 04/17. WILL MONITOR FOR EFFECTIVENESS. CALL LIGHT WITHIN REACH.
--- NOTE | 2017-08-28 16:07 | NUR ---
Spoke with Dr. Gilman regarding wound care recommendations and she stated that was okay.
--- NOTE | 2017-08-28 16:27 | NUR ---
DESTINY MARADIAGA [id number] Please refer to the physician's history and physical for past medical history, comorbid conditions, and allergies. Diagnosis: ACUTE HYPERCAPNIC RESPIRATORY FAILURE Julio Score: 15,AT RISK WOUND DESCRIPTIONS: Surface the patient is resting on: Isoflex SKIN PREVENTION RECOMMENDATION: 1. Pressure redistribution support surface as appropriate 2. Elevate heels 3. Remove boots/TEDS every shift and reapply 4. Head of bed 30 degrees as tolerated 5. Assess nutrition and hydration 6. Manage moisture 7. Avoid the use of containment devices while in bed 8. Use absorptive products on surfaces limit layers of linens on bed 9. Turn and reposition every 1-2 hours in bed and every 1 hour in chair as tolerated 10. Weight shifts every 15 minutes while up in chair 11. Offloading with pillows or device to keep heels elevated off bed 12. Monitor skin at least every shift 13. Inspect under medical devices twice a day WOUND Description: Location of the wound: right distal buttocks Type of wound: stage 2 Thickness: Partial Size: 1cm x 0.5cm x 0.1cm Tunneling: none Undermining: none Sinus Tract: none Presence of Exudate: Serous Amount: None Color: [place] Odor: None Periwound Skin Appearance: Normal Wound edges: approximated Pain (associated with wound): patient denied How does patient state this happened? patient stated nurse said it was from removing tape Location of the wound: right proximal buttocks Type of wound: Thickness: Partial Size: 1cm x 0.2cm x 0.1cm Tunneling: none Undermining: none Sinus Tract: none Presence of Exudate: Amount: None Color: [place] Odor: None Periwound Skin Appearance: Normal Wound edges: approximated Pain (associated with wound): patient denied How does patient state this happened? patient stated nurse said it was from removing tape WOUNDCARE RECOMMENDATION: Satge 2 guidelines: Cleanse wound with NS. Apply sureprep to periwound and allow to dry and apply therahoney and cover with optifoam gentle.
--- NOTE | 2017-08-28 16:50 | NUR ---
DR DOUGHERTY IN TO SEE PT THIS TIME.
--- NOTE | 2017-08-28 23:22 | NUR ---
pt refused to wear bipap
[2017-08-29] VITALS: BP 162/81
--- NOTE | 2017-08-29 02:18 | NUR ---
MEDICATED WITH PO NORCO FOR GENERALIZED PAIN ALL OVER.
--- NOTE | 2017-08-29 03:20 | NUR ---
PAIN MEDICATION EFFECTIVE PER PATIENT
--- NOTE | 2017-08-29 07:03 | NUR ---
INFORMED CONSENT SIGNED FOR LEXISCAN STRESS TEST WITH DR. GUEVARA. RESTING EKG NSR WITH PAC'S, HR 62, BP 144/80. LUNGS CLEAR AND SPOX 100% ON 3L/NC. COMPLETED ONE MINUTE OF LEXISCAN PROTOCOL RECEIVING LEXISCAN 0.4MG OVER 10 SECONDS. NO ARRHYTHMIAS OR ST CHANGES NOTED. PT C/O SOB AND JITTERY FEELING. LAST RECOVERY HR 75, BP 132/70. WAITING NUCLEAR SCANNING IN STABLE CONDITION.
[2017-08-29 08:00] VITALS: BP 140/55
--- NOTE | 2017-08-29 08:25 | NUR ---
PT RETURNED TO ROOM POST STRESS TEST AT THIS TIME.
--- NOTE | 2017-08-29 11:30 | NUR ---
PHYSICAL THERAPY Pt off the floor this AM therapy visit, down for her stress test. When i stopped back 1 1/2 hr later Pt wanting to just rest at this time. Will stop back later today. SHIRA BENJAMIN ELIGIBILITY SERVICES REPRESENTATIVE.
[2017-08-29 12:00] VITALS: BP 181/58
--- NOTE | 2017-08-29 12:15 | NUR ---
PATIENT SEEN FOR 15 MINUTES OT THIS DATE. PATIENT IDENTIFIED BY NAME AND DATE OF . PATIENT IN BED AND VERBALIZED FATIGUE.PATIENT WILLING TO COMPLETE ACTIVITY TO TOLERANCE. PATIENT COMPLETED SUPINE TO SIT MIN A WITH VERBAL CUES SAFETY. PATIENT COMPLETED SIT BALANCE F+ SEATED EOB COMPLETING BUE AROM SHOULDER FLEX/EXT, SHOULDER RETRACT/PROTRACTION, AND SHOULDER ABD /ADD X 10 REPS WITH MOD VERBAL CUES TECH/FORM AND MAX REST BREAKS SECONDARY TO FATIGUE. PATIENT EDUCATED PURSE LIP BREATHING FOR ENERGY CONSERVATION DURING TASK COMPLETION. PATIENT REQUESTED TO LIE BACK DOWN AND VERBALIZED THAT WAS ALL SHE COULD DO. PATIENT COMPLETED SIT TO SUPINE MIN A. CALL LIGHT WITHIN REACH. BHUMI EVELYN REEVES/L BHUMI EVELYN REEVES/L
--- NOTE | 2017-08-29 12:57 | NUR ---
PHYSICAL THERAPY Back this PM to treat Mrs Cadena, Pt supine in bed. Alma Delia ask not to be seen this afternoon. Said that she has been running all day and did not get much sleep last night and just tired. SHIRA BENJAMIN EGG SETTER.
--- NOTE | 2017-08-29 13:20 | NUR ---
Received authorization for patient to return to [facility]. Can go when medically stable for discharge.
--- NOTE | 2017-08-29 15:51 | NUR ---
PT MEDICATED WITH NORCO FOR C/O BACK AND BILATERAL LEG PAIN.
[2017-08-29 16:00] VITALS: BP 185/58
--- NOTE | 2017-08-29 17:05 | NUR ---
DR BRANDT MADE AWARE OF PT'S CONTINUED HYPERTENSION TODAY OF 180'S SYSTOLIC. NEW ORDER FOR HYDRALAZINE RECEIVED.
[2017-08-29 20:00] VITALS: BP 155/40
--- NOTE | 2017-08-29 23:25 | NUR ---
PT PLACED ON A NOCTURNAL PULSE ON ON [address] ORDER.
[2017-08-30] VITALS: BP 163/55
[2017-08-30 08:00] VITALS: BP 156/80
[2017-08-30] MEDS ORDERED: 'CLONIDINE0.1 MG PO (08:15)
[2017-08-30] MEDS ORDERED: LISINOPRIL2.5 MG PO (08:15)
[2017-08-30] MEDS ORDERED: NORCO 5/325 PO (08:15)
[2017-08-30] MEDS ORDERED: DALI500T PO (08:15)
[2017-08-30] MEDS ORDERED: FUROSEMIDE20 M1 PO (08:15)
[2017-08-30] MEDS ORDERED: CARVEDILOL3.125 MG PO (08:15)
[2017-08-30] MEDS ORDERED: HYDRALAZINE HYD50 MG PO (08:15)
[2017-08-30] MEDS ORDERED: MUCINEX ER600 MG PO (08:15)
--- NOTE | 2017-08-30 09:21 | NUR ---
Patient being discharged to [facility], transportation scheduled for 1:30 pm. NH and nursing notified.
--- NOTE | 2017-08-30 10:05 | NUR ---
WOUND CARE PHOTOS AND WOUND CARE PERFORMED AT THIS TIME.
--- NOTE | 2017-08-30 10:10 | NUR ---
PHYSICAL THERAPY Patient refused therapy today saying she doesn't feel well enough to do therapy and she is going to [facility] today at 1 pm. PRAVEEN CIFUENTES ORDER SCHEDULE CLERK
--- NOTE | 2017-08-30 11:18 | NUR ---
MEDICATED WITH TYLENOL FOR GENERALIZED BODY ACHES. WILL MONITOR FOR EFFECTIVENESS.
--- NOTE | 2017-08-30 11:25 | NUR ---
PHYSICAL THERAPY CO-SIGN I approve of the Phyical Therapy notes written above. KAREY VILLALPANDO PT
[2017-08-30 12:00] VITALS: BP 150/58
--- NOTE | 2017-08-30 13:13 | NUR ---
NURSE TO NURSE REPORT GIVEN TO MADELYN AT [facility].
--- NOTE | 2017-08-30 13:40 | NUR ---
Discharge instructions reviewed with patient/family. Patient receptive and verbalizes understanding. Follow-up care arranged. Written instructions given to patient/family. conveyor monitor removed, pt left via [facility]. MAXIM HOWE
--- NOTE | 2017-08-30 14:47 | NUR ---
OCCUPATIONAL THERAPY CO-SIGN I approve of the Occupational Therapy notes written above. PEDRO ANDERSON OTR/Yuan
== END 2017-08-30 13:40 | DRG 208 ==
LOC: ED 11:23 → 4E 12:38 → ICCU 12:38 → EDHOLD 12:38 → ICCU 12:44 → 4E 08-27 19:04
PROVIDERS: Emergency Medicine; Internal Medicine Critical Care Medicine; Internal Medicine Gastroenterology; ADMIT Internal Medicine
PROC: 5A1945Z Respiratory Ventilation, 24-96 Consecutive Hours (ICD-10-PCS; principal; 2017-08-23)
PROC: 0BH17EZ Insertion of Endotracheal Airway into Trachea, Via Natural or Artificial Opening (ICD-10-PCS; 2017-08-23)
PROC: B548ZZA Ultrasonography of Superior Vena Cava, Guidance (ICD-10-PCS; 2017-08-23)
PROC: 02HV33Z Insertion of Infusion Device into Superior Vena Cava, Percutaneous Approach (ICD-10-PCS; 2017-08-23)
PROC: 5A09357 Assistance with Respiratory Ventilation, Less than 24 Consecutive Hours, Continuous Positive Airway Pressure (ICD-10-PCS; 2017-08-27)
PROC: 5A09357 Assistance with Respiratory Ventilation, Less than 24 Consecutive Hours, Continuous Positive Airway Pressure (ICD-10-PCS; 2017-08-28)
PROC: 4A02XM4 Measurement of Cardiac Total Activity, External Approach (ICD-10-PCS; 2017-08-29)
DX: J96.21 Acute and chronic respiratory failure with hypoxia (principal); I21.4 Non-ST elevation (NSTEMI) myocardial infarction; N17.9 Acute kidney failure, unspecified; G93.40 Encephalopathy, unspecified; J18.1 Lobar pneumonia, unspecified organism; E87.3 Alkalosis; I11.0 Hypertensive heart disease with heart failure; I50.22 Chronic systolic (congestive) heart failure; E11.51 Type 2 diabetes mellitus with diabetic peripheral angiopathy without gangrene; E66.2 Morbid (severe) obesity with alveolar hypoventilation; Z68.43 Body mass index [BMI] 50.0-59.9, adult; I42.9 Cardiomyopathy, unspecified; J44.0 Chronic obstructive pulmonary disease with (acute) lower respiratory infection; J44.1 Chronic obstructive pulmonary disease with (acute) exacerbation; F33.0 Major depressive disorder, recurrent, mild; J96.22 Acute and chronic respiratory failure with hypercapnia; I27.81 Cor pulmonale (chronic); E11.65 Type 2 diabetes mellitus with hyperglycemia; E87.5 Hyperkalemia; D50.9 Iron deficiency anemia, unspecified; R62.7 Adult failure to thrive; K21.9 Gastro-esophageal reflux disease without esophagitis; I25.10 Atherosclerotic heart disease of native coronary artery without angina pectoris; T38.0X5A Adverse effect of glucocorticoids and synthetic analogues, initial encounter; Z96.642 Presence of left artificial hip joint; I89.0 Lymphedema, not elsewhere classified; E78.2 Mixed hyperlipidemia; F41.1 Generalized anxiety disorder; Z99.81 Dependence on supplemental oxygen; Z88.8 Allergy status to other drugs, medicaments and biological substances; Z91.040 Latex allergy status; Z88.6 Allergy status to analgesic agent; Z79.899 Other long term (current) drug therapy; Z79.4 Long term (current) use of insulin; Z90.49 Acquired absence of other specified parts of digestive tract; Z98.51 Tubal ligation status; Z95.1 Presence of aortocoronary bypass graft; Z87.891 Personal history of nicotine dependence; Z82.49 Family history of ischemic heart disease and other diseases of the circulatory system; Z83.3 Family history of diabetes mellitus; Y92.89 Other specified places as the place of occurrence of the external cause; I25.2 Old myocardial infarction

== ENCOUNTER 2017-09-16 15:58 | Inpatient (IN) | payer OTHER ==
[~2017-09-16] VITALS: Ht 165.1 cm; Wt 127.9 kg
--- NOTE | ~2017-09-16 | DS ---
[place], [place] DISCHARGE SUMMARY NAME: [id number] UN[facility] #: [id number] ROOM: [facility] DOCTOR: BAM MARIECANDICE J BIRTHDATE: [birth year] DOS: 09/19/2017 DISCHARGE DIAGNOSES: 1. Acute hypercapnic respiratory failure, at least partly related to obesity hypoventilation syndrome. 2. Acute hyperkalemia. 3. Generalized anxiety disorder. 4. Morbid obesity. 5. Acute exacerbation of chronic obstructive pulmonary disease. 6. Right middle lobe pneumonia versus atelectasis. 7. Major depression, recurrent, mild. 8. Type 2 diabetes mellitus, with reasonably controlled sugars. 9. Gram-positive cocci bacteremia, with recently removed central line. The patient is being treated with vancomycin. 10. Iron deficiency anemia. 11. Systolic type congestive heart failure with 20% left ventricular ejection fraction. 12. Benign essential hypertension. HOSPITAL COURSE: The patient was admitted with 4-day complaints of increasing shortness of breath, chest congestion and she was diagnosed as having acute exacerbation of severe underlying COPD. The patient is morbidly obese and at least part of the respiratory failure was related to obesity hypoventilation syndrome. Right lung opacity, thought to be right middle lobe atelectasis versus pneumonia by Dr. Subramanian. Uncontrolled type 2 diabetes mellitus, with improved blood sugars during her stay at the hospital on a no concentrated sweet diet. Blood cultures now growing Enterococcus faecalis. The patient was followed by Infectious Disease specialist. Advanced adult failure to thrive with morbid obesity. The patient kept on physical therapy. Chronic systolic type congestive heart failure, compensated. Moderate to severe protein-calorie malnutrition. During her stay at the hospital, the patient became tachycardic and tachypneic and her mental status deteriorated and she was becoming more drowsy. A rapid response was called and she was found to be in hypercapnic respiratory failure. The patient was intubated and started on mechanical ventilation and a request is being made to transfer the patient to a tertiary care center as recommended by Dr. Subramanian. Acute hyperkalemia, which is to be followed and treated. BUN and creatinine 27 and 1.5. Blood gases with pH of 7.2, pCO2 of 83. Hemoglobin of 10.1. [place], [place] DISCHARGE SUMMARY NAME: DESTINY MARADIAGA UNIT #: [id number] ROOM: [facility] DOCTOR: BAM MARIE,CANDICE Menon BIRTHDATE: [birth year] PRESENT MEDICATIONS: The patient on Daliresp 500 mcg daily, lisinopril 2.5 mg daily, furosemide 20 mg a day, Lexapro 20 mg a day, Plavix 75 mg a day, 70/30 insulin 25 units b.i.d., hydralazine 50 mg every 8 hours, clonidine 0.1 mg b.i.d., Coreg 3.125 mg b.i.d., Colace 100 mg daily, DuoNeb every 4 hours, ceftriaxone IV 2 grams daily, buspirone 15 mg t.i.d. p.r.n., Vicodin p.r.n., IV vancomycin 1250 mg b.i.d. CONDITION: The patient is intubated and on mechanical ventilation. CANDICE KUHN MD CM:KE [id number] CANDICE KUHN MD 09/19/17 1002 interface
--- NOTE | ~2017-09-16 | CON ---
[place], [place] REPORT OF CONSULTATION NAME: [id number] UNIT #: [id number] ROOM: 403 DOCTOR: NABILA STYLES,JANUARY BIRTHDATE: [birth year] DOS: 09/17/2017 HISTORY OF PRESENT ILLNESS: The patient is a 67-year-old morbidly obese female who was admitted from [facility]. She had originally been here on August 24. She was diagnosed with pneumonia. She was treated with Rocephin. She was discharged to [facility] on IV Rocephin. She states she completed the Rocephin 1 few days ago and her antibiotics were stopped and she had a right IJ line that was removed. She was admitted now due to persistent cough and shortness of breath. Her admitting blood cultures from yesterday afternoon are growing from all bottles gram-positive cocci in pairs and chains. The patient denies any urinary symptoms. States she is feeling a little better since admitted. She has been afebrile since admission. Denies any fevers or chills at the [facility]. A chest x-ray reveals a right lung infiltrate. She complains of pain all over, which she states is chronic on her legs, abdomen and back. She is currently on IV vancomycin. She was originally on Zyvox due to difficulty placing a line. The residents attempted to place a line this morning and were unsuccessful. Surgery has been consulted to place triple lumen catheter. I have discussed the case with Dr. Morales, who does not want a line placed yet until our repeat blood cultures are sterile. Repeat blood cultures were obtained earlier today and are pending. PAST MEDICAL HISTORY: As above as well as COPD, CHF. PAST SURGICAL HISTORY: Cholecystectomy, left hip replacement, tubal ligation, CABG. FAMILY MEDICAL HISTORY: Significant for hypertension in both parents as well heart disease and mother had diabetes. REVIEW OF SYSTEMS: As above in history of present illness. She also has systemic edema, no nausea or vomiting. States she was having diarrhea previously that has since resolved. Again, no fevers or shaking chills. She has a cough, but is unable to clear any sputum and has been having shortness of breath. She states she is not walking right now, but she was walking previously at [facility]. Further review of systems is unremarkable. Denies any dysuria or frequency. LABORATORY DATA: WBCs 4.5, platelets 189, BUN 19, creatinine 0.89. Her LFTs yesterday were within normal limits. Albumin 2.1. Blood cultures positive 4 bottles for gram-positive cocci in pairs and chains. Influenza was negative. VITAL SIGNS: Temperature 97.9, pulse 84, respirations 22, BP 154/64. CURRENT MEDICATIONS: Include vancomycin, Daliresp, Zestril, Lasix, Lexapro, Plavix, Shallowater, insulin, Apresoline, Catapres, Coreg, Colace and DuoNeb. PHYSICAL EXAMINATION: GENERAL: A 67-year-old obese female, in no acute distress, nontoxic in appearance. HEAD, EYES, EARS, NOSE AND THROAT: Normocephalic, no thrush. [place], [place] REPORT OF CONSULTATION NAME: DESTINY MARADIAGA UNIT #: [id number] ROOM: 403 DOCTOR: NABILA STYLES,JANUARY BIRTHDATE: [birth year] NECK: Supple. LUNGS: Diminished on the right with coarse rales and rhonchi. Respirations are even and unlabored on O2 via nasal cannula. HEART: Regular rhythm. No murmur appreciated. ABDOMEN: Soft, generalized tenderness. She does have pannus edema. Positive bowel sounds, obese. EXTREMITIES: +2 to 3 edema bilateral lower extremities as well as pitting edema of her bilateral upper extremities. SKIN: Warm, pale, dry, free of rashes. ASSESSMENT: Gram-positive cocci bacteremia with recently removed central line just a few days ago. She is in congestive heart failure as well as with pneumonia and this may be Streptococcus pneumoniae versus enterococcus versus viridans streptococci. PLAN: At this point, we will continue the vancomycin, follow up on repeat blood cultures as well as her positive blood cultures. Case discussed with Dr. Lucius Santos and ____. We would not recommend a PICC line at this time until her blood cultures are clear. JANUARY STEPHANI DAHL LUCIUS SANTOS MD CM:CONSTR:REPORT OF CONSULTATION [id number] 09/18/17 0545 interface
--- NOTE | ~2017-09-16 | PR ---
[place], [place] PROGRESS NOTE NAME: DESTINY MARADIAGA [facility] #: [id number] UNIT #: [id number] ROOM: [facility] DOCTOR: KATIE SEGAL MD,ROGER BIRTHDATE: [birth year] DOS: 09/19/2017 PULMONARY CRITICAL CARE EVALUATION AND MANAGEMENT SUBJECTIVE: The patient remained in the hospital on the telemetry floor. She has noted progressive decrease in consciousness overnight. She has been receiving the pain medication as well as ____ for the patient because of pain described with the patient all the time and anxiety. She has not been using the BiPAP as ordered as well all the time. The patient had arterial blood gases, which were done this morning for this patient as she has been noted with progressive increased lethargy and unresponsiveness. Other blood gas shows evidence of severe hypercapnia, decreased pH. She has been intubated and started on mechanical ventilation successfully this morning. She has been currently getting mechanical ventilation on assist control, volume control, and mechanical ventilation. OBJECTIVE: VITAL SIGNS: Temperature curve, the patient was noted in the last 24 hours as normal temperature. Respiratory, the patient recorded at this time on the mechanical ventilator at 18-20. Heart rate of 91-102 with mild sinus tachycardia, blood pressure 122/57 and 164/56. Intake for the patient is 960, the output was recorded for the patient at 750 mL. Pulse oxygen saturation for the patient was noted on 3 liters nasal cannula 93% saturation. HEENT: Examination shows head was atraumatic. The patient currently intubated. NECK: Supple and obese. CARDIOVASCULAR: S1, S2 is audible. LUNGS: The patient was noted with decreased breath sounds in the right lower lung. There was no wheezing. ABDOMEN: Soft, nontender. EXTREMITIES: Noted without any edema. LABORATORY DATA: Blood culture, the patient was noted as Enterococcus faecalis, which are noted pansensitive organism including the penicillins and vancomycin. The CMP of this morning, BUN 28, creatinine 1.15, glucose 317. Sodium 134, potassium 5.8. Arterial blood gas earlier, pH of 7.18, pCO2 of 83.6, pO2 of 76.9 prior to intubation and mechanical ventilation. The chest x-ray of the patient was noted with endotracheal tube noted about 5 cm above the emelina level. Infiltration noted in the right lower lung, but film was more rotated towards the right because of the patient's current posture, the patient in the supine position, leaning towards the right. IMPRESSION: 1. The patient who has been currently noted with acute pneumonia with Enterococcus faecalis noted pansensitive organism including the penicillins. 2. Acute severe hypercapnic and hypoxic respiratory failure, combination for the pneumonia and exacerbation of chronic obstructive pulmonary disease. 3. Morbid obesity as well. 4. Mild hyperkalemia. 5. Mild acute kidney. The patient with volume depletion intravascularly as well. [place], [place] PROGRESS NOTE NAME: DESTIN[facility]AD[facility]AGA [facility] [id number] UNIT #: [id number] ROOM: [facility] DOCTOR: KATIE SEGAL MD,ROGER BIRTHDATE: [birth year] 6. Severe morbid obesity. 7. Suspected obstructive sleep apnea disorder. PLAN OF MANAGEMENT: Ventilator bundle management has been initiated for this patient. The patient antibiotics are being directed by the Infectious Disease specialist. She will be recommended about transfer to another facility for patient for the VATS procedure on the right side. Also, assess the patient for ruling out endocarditis because of overwhelming bacteremia noted with enterococcus. FAIZAN should be done for this patient for ruling out the endocarditis. The patient will be started on nutrition support as well. Arterial blood gas repeated for the patient in the next 30-40 minutes. Endotracheal tube noted about 5.4 cm above the emelina level, which will be adjusted for this patient to the proper position by advancing the endotracheal tube by 2 cm. Endotracheal aspirate culture will be obtained for the patient as well. Other treatment changes on the patient is to be made based on progression of the illness. The assessment, management plan, and transfer recommendations were discussed with Dr. Mary Ann Gilman briefly. Total time for pulmonary and critical care evaluation and management was 40 minutes. ROGER WILSON MD CM:PNTRANS [id number] ROGER SEGAL MD 09/19/17 1315 interface
--- NOTE | ~2017-09-16 | CON ---
[place], [place] REPORT OF CONSULTATION NAME: DESTINY MARADIAGA [facility] #: [id number] UNIT #: [id number] ROOM: 403 DOCTOR: KATIE SEGAL MDROGER BIRTHDATE: [birth year] DOS: 09/17/2017 PULMONARY CONSULTATION CONSULTATION REQUESTED BY: Dr. Amauri Vital. REASON FOR CONSULTATION: To assess the patient's respiratory status. HISTORY OF PRESENT ILLNESS: This is a 67-year-old white female known to me with previous admission for acute respiratory failure with suspected obstructive sleep apnea disorder treated and discharged to the nursing facility. She resides at the [facility]. She has been brought to the hospital by the EMS squad. The patient has reported increased chest congestion for the patient with dyspnea ongoing for the past 3-4 days. The symptoms have been noted gradually worsened and nonresolving. She was also noted generalized weakness and fatigue with that associated symptoms of shortness of breath. Denies any symptoms of chest pain or chest tightness. The patient has been admitted currently to the telemetry floor. She has been ordered a BiPAP yesterday after admission to the hospital ____ the patient as ordered. She was complaining of generalized pain for the patient including the chest and other parts of the body as well. REVIEW OF SYSTEMS: CONSTITUTIONAL: Fatigue, tiredness reported. Denies symptoms of fever or chills. EYES: Denies any burning, redness, or tenderness. NECK, EARS, NOSE, THROAT SYMPTOMS: No sore throat, hoarseness, otalgia. CARDIOVASCULAR: Denies angina pain, edema, or pain of the lower extremities. GASTROINTESTINAL: The patient denies symptoms of dysphagia, nausea, vomiting, diarrhea, abdominal pain, hematemesis, melena, or hematochezia. Chronic obesity was known without any recent abnormal weight loss history. GENITOURINARY: Denies dysuria, suprapubic pain, and hematuria. MUSCULOSKELETAL: Denies any acute joint pain. CENTRAL NERVOUS SYSTEM: The patient does not ambulate much at all. Usually noted bedbound. Remaining systems were reviewed with the patient, they were noted all negative. PAST MEDICAL HISTORY: The patient was interviewed with the patient, reviewed the chart for this patient. She has been admitted in the hospital. The patient under care of Dr. Mary Ann Gilman. The patient required intubation and mechanical ventilation from 08/23/2017 and was successfully liberated from mechanical ventilator, and sent to the nursing on 08/28/2017 for the continued medical management of pneumonia treatment at that time. PAST MEDICAL HISTORY: 1. History of centrilobular emphysema. 2. Chronic hypoxic respiratory failure. 3. Chronic hypercapnic respiratory failure. 4. History of nicotine abuse. [place], [place] REPORT OF CONSULTATION NAME: [facility] #: [id number] UNIT #: [id number] ROOM: [facility] DOCTOR: KATIE SEGAL MDROGER BIRTHDATE: [birth year] 5. Type 2 diabetes mellitus. 6. General anxiety disorder. 7. Chronic obesity. 8. Major depression. 9. Cardiomyopathy in the patient with systolic dysfunction. PAST SURGICAL HISTORY: 1. Sinus surgery. 2. Tubal ligation. 3. Left hip replacement. 4. Coronary artery bypass grafting. 5. Cardiac catheterization and coronary stents insertion. 6. Cholecystectomy. SOCIAL HISTORY: The patient currently a resident of a nursing facility. Denies any history of tobacco use, has been known with previous history of tobacco use. FAMILY HISTORY: The patient was reported as mother related to complications of heart disease. Father of complication related to the hypertension. MEDICATIONS: The current administered medications were reviewed and noted use of Daliresp, lisinopril, Lasix oral, citalopram, Plavix, NPH insulin, hydralazine, clonidine, Coreg, DuoNeb, vancomycin and other medications administered. DRUG ALLERGY HISTORY: REPORTED ALLERGY TO THE HYDROXYZINE. MORPHINE and LATEX. PHYSICAL EXAMINATION: GENERAL: A 67-year-old female who has been currently noted awake and alert at this time, using oxygen supplementation, nasal cannula, earlier using the BiPAP. Height of 5 feet 5 inches, weight of 282 pounds, BMI 50. VITAL SIGNS: The patient's temperature was recorded as normal since admission. Respiratory rate 20-24, heart rate of 84-100, blood pressure of 152/60-166/58. Pulse oxygen saturation of the patient on 3 liters cannula was noted as 97% on her usual oxygen supplementation. HEENT: Atraumatic. Eyes nonicterus. NECK: Supple and obese. Decreased posterior pharyngeal space. CARDIOVASCULAR SYSTEM: S1, S2 audible. LUNGS: Moderate decreased breath sounds. There were no wheezing or crackles heard. ABDOMEN: Soft, nontender. Noted severe obesity. Bowel sounds present. EXTREMITIES: Without any significant edema at the present time. SKIN: No lesions or rashes. MUSCULOSKELETAL: No acute deformities. LABORATORY DATA: Influenza A and B, nasal washing antigen for A and B antigens were noted as negative. CBC 09/16/2017, hemoglobin 9.2, hematocrit 30.3, WBC count normal, platelet count normal. Lactic acid normal on 09/16/2017. BMP: [place], [place] REPORT OF CONSULTATION NAME: DESTINY MARADIAGA UNIT #: [id number] ROOM: 403 DOCTOR: KATIE SEGAL MD,[facility] BIRTHDATE: [birth year] BUN of 13, creatinine 0.74, remaining BMP was normal. PT/PTT on 09/16/2017 normal. The BMP of patient 09/17/2017, showed glucose 306, BUN and creatinine were normal, sodium 133, potassium 5.4. CBC, The patient's WBC count 9.1, hemoglobin 13.0, platelet count was noted as normal. Blood cultures 2 sets for the patient was taken for this patient on 09/16/2017 for this patient was noted with Gram-positive cocci in pairs and chains and gram-positive cocci in 3/4 cultures and one of the Gram stain was noted as gram-positive cocci in pairs. The chest x-ray of the patient was noted with the possibility infiltration in the right lower lobe. The patient past x-ray of the patient, a CT scan of the chest was reviewed for this patient as well. Comparison to the current finding. The CT scan of the chest for this patient was done on 08/27/2017 showed large area of consolidation of the patient was noted with mild enlargement of lymph node. The right lower lobe for the patient with area of consolidation in the right middle lobe. CT scan of the chest for the patient of 06/27/2017 for the patient at that time shows a small pleural fluid. The patient at this time without any infiltration. IMPRESSION: 1. The patient will be currently admitted to the hospital noted with bacteremia. 4/4 bottles for the patient with previous known history of right middle lobe area of atelectasis, infiltration and lymphadenopathy might be represented recurrence of progression of the pneumonia as the current cause of illness. 2. History of chronic hypoxic respiratory failure, remains stable, with hypercapnia as well. 3. Suspected obstructive sleep apnea disorder. Empirically treated with the BiPAP at the nursing facility. 4. History of chronic obesity and usually bedbound status as well. 5. Chronic pain, which has been also reported by the patient. PLAN OF MANAGEMENT: At this time, CT scan of the chest will be obtained for this patient for assessment of current radiologic abnormality to determine the actual anatomical problem for the patient with further additional recommendation will be made according to that. The patient will be continued on other supportive therapy, plan and management. CT scan of the chest will be done in the morning. The patient with IV contrast for this patient. In the meantime, the patient would be treated for the gram-positive cocci bacteremia, preferable agent would be Zyvox. The patient in ____ rather than the vancomycin since the possibility of an Enterococcus, which remained in the consideration in the differential diagnosis because of gram-positive cocci in pairs and chains. The streptococcal infection could also be suspected. These, at least, Gram stain was not suggestive of Staphylococcus aureus infection. At this time, the patient does not have any chronic indwelling catheter for the patient, which would be resulting in the bacteremia. She might require the cardiac workup to rule out endocarditis as well. Other supportive therapy, plan of management and care plan. Usual treatment, all other supportive therapies. Follow the recommendation and management for the infection for this patient by the Infectious Disease services, who have been already consulted. The patient has been originally given the Zyvox, which has been changed to the vancomycin by [place], [place] REPORT OF CONSULTATION NAME: DESTINY MARADIAGA UNIT #: [id number] ROOM: 403 DOCTOR: ROGER JEROME MD BIRTHDATE: [birth year] their recommendation. I will let the monitor about the infection management of the patient their recommendations. Supportive therapy, plan of management and care plan. Additional treatment changes will continue to be made based on progression of the illness. Thanks for allowing me to participate in the care of this patient. ROGER WILSON MD CM:CONSTR:REPORT OF CONSULTATION 1518 09/18/17 0248 interface
--- NOTE | ~2017-09-16 | PR ---
[place], [place] PROGRESS NOTE NAME: DESTINY MARADIAGA [facility] #: [id number] UNIT #: [id number] ROOM: 403 DOCTOR: CANDICE KUHN MD BIRTHDATE: [birth year] DOS: 09/18/2017 SUBJECTIVE: The patient is extremely anxious and complaining of some shortness of breath, but maintaining a 99% pulse ox. OBJECTIVE: VITAL SIGNS: Blood pressure 126/52, heart rate ranging from 62-140 beats per minute, breathing 20 times per minute, afebrile. IMPRESSION: 1. Generalized anxiety disorder with severe anxiety, which is being treated with buspirone. I will also give her a dose of Ativan to calm her down. The patient is also on Lexapro. 2. Acute exacerbation of chronic obstructive pulmonary disease without any signs of respiratory failure anymore, pulse ox remains good. 3. Positive blood cultures with gram-positive cocci in pairs. The patient is being treated with ceftriaxone and IV vancomycin. Infectious Disease specialists are following. 4. Dr. Subramanian, the manager of planning is also following her for complaints of shortness of breath. 5. Right middle lobe area of atelectasis versus pneumonia, being followed by Dr. Subramanian. 6. The patient with obesity, working with dietary. 7. Major depression, recurrent, mild, being treated with Lexapro. 8. Type 2 diabetes mellitus. Blood sugars are being monitored and reasonably controlled. 9. Hyperkalemia, resolved with hydration. CANDICE KUHN MD CM:PNTRANS 07 [id number] CANDICE KUHN MD 09/18/172229 interface
--- NOTE | ~2017-09-16 | PR ---
[place], [place] PROGRESS NOTE NAME: DESTINY MARADIAGA [facility] #: [id number] UNIT #: [id number] ROOM: 403 DOCTOR: KATIE SEGAL MD,ROGER BIRTHDATE: [birth year] DOS: 09/18/2017 SUBJECTIVE: She has been comfortably resting at this time on the bed. The pain for the patient has been described to be better. Shortness of breath has been noted partially decreased with reduction of cough. There were no symptoms of chest pain or any abdominal pain. OBJECTIVE: VITAL SIGNS: For the patient which has been recorded this morning shows temperature noted normal, respiratory rate 20, heart rate 93, blood pressure 148/62. The pulse oxygen saturation of the patient was noted on 3 liters nasal cannula 96% saturation. HEENT: Head was atraumatic. Eyes nonicterus. NECK: Supple. CARDIOVASCULAR: S1, S2 is audible. LUNGS: The patient noted decreased breath sounds in the lower portion of the lungs. ABDOMEN: Soft, nontender. LABORATORY DATA: The blood culture of the patient were noted gram-positive cocci in pair pending identification sensitivities. BMP for the patient, BUN 24, creatinine was normal, sodium 135. CT scan of the chest that I ordered this morning was reviewed personally by me. I have ordered CT scan for the patient assessment, previous chest x-ray. The CT scan of the chest shows evidence of loculated pleural fluid noted with the right middle lobe area of consolidation and infiltration atelectasis. Also, the CT scan was compared to the findings of 08/27/2017 for the patient shows the infiltrate noted to be increased as compared with the previous CT scan of the chest of 08/27/2017. IMPRESSION: 1. The patient who has been noted recurrent bacteremia gram-positive cocci as well as currently noted with a loculated pleural fluid with acute pneumonia. The source of infection would be considered arising from the lung, however, the endocarditis would be considered as well and to be excluded because of overwhelming positive 4/4 bottles blood cultures on admission 2. The patient with chronic respiratory failure as well with morbid obesity and other medical problem. PLAN OF MANAGEMENT: The ideal management for this patient would be video-assisted thoracoscopy for the current medical management of the pleural fluid. Continue antibiotic. Monitor culture results. The case will be discussed with the primary care attending for making final recommendation of the possible consideration of transfer. This will be also discussed with the patient as well. In the meantime, continue the patient current antibiotics. Other supportive therapy, plan of management and care plan. Additional treatment changes need to be made based on progression of the illness. [place], [place] PROGRESS NOTE NAME: DESTINY MARADIAGA UNIT #: [id number] ROOM: 403 DOCTOR: ROGER JEROME MD BIRTHDATE: [birth year] ROGER WILSON MD CM:BRAD [id number] ROGER SEGAL MD 09/19/17 0115 interface
--- NOTE | ~2017-09-16 | CON ---
[place], [place] REPORT OF CONSULTATION NAME: DESTINY MARADIAGA UNIT #: [id number] ROOM: 403 DOCTOR: DANIELLE MARIE,LUCIUS Bennett BIRTHDATE: [birth year] DOS: ADDENDUM After reviewing the chart, labs, microbiology and radiographs, I agree with the above plans as described in consult on 09/17/2017 for Infectious Disease on the patient. LUCIUS SANTOS MD CM:CONSTR:REPORT OF CONSULTATION 2359 09/18/17 0023 interface
--- NOTE | ~2017-09-16 | PR ---
[place], [place] PROGRESS NOTE NAME: DESTINY MARADIAGA UNIT #: [id number] ROOM: [facility] DOCTOR: PATRICIO RODRIGUEZ CRNA BIRTHDATE: [birth year] DOS: 09/19/2017 INTUBATION NOTE. Called to intubate the patient for hypoxic respiratory failure with hypercarbia. On arrival, the patient found to have a saturation of 91% on BiPAP 15/5. The patient sedated with etomidate 12 mg. Intubation attempted with 2 Lee blade with poor visualization, immediately transitioned to GlideScope, intubated without difficulty with 8 mm tube secured at 22 cm at the lip. Initial opening CO2 was 80. Post-intubation oxygen saturation improving to 100%. PATRICIO RODRIGUEZ CRNA CM:PNTRANS [id number] PATRICIO RODRIGUEZ CRNA 09/19/17 1004 interface
--- NOTE | ~2017-09-16 | WRIGHTHP ---
[place], [place] PATIENT HISTORY AND PHYSICAL EXAM NAME: DESTINY MARADIAGA [facility] #: [id number] UNIT #: [id number] ROOM: 403 DOCTOR: CANDICE KUHN MD BIRTHDATE: [birth year] DOS: 09/16/2017 HISTORY OF PRESENT ILLNESS: The patient is a 67-year-old female with a history of; 1. Morbid obesity. 2. Adult failure to thrive. 3. Centrilobular emphysema and chronic respiratory failure. 4. Benign essential hypertension. 5. Systolic type, chronic congestive heart failure with 20% left ventricular ejection fraction. 6. Iron deficiency anemia. 7. Major depression, recurrent, mild. 8. Type 2 diabetes mellitus. The patient presented to the Emergency Department with 4-day complaints of increasing shortness of breath, cough, chest congestion. The patient takes 3 liters of oxygen by nasal cannula at home. The patient was sent over from group home after an episode of respiratory failure and mechanical ventilation. The patient also found to have opacity in the lateral right lung, possible pneumonia. The patient was admitted for acute exacerbation of COPD. After initial treatment in the Emergency Department, the patient was admitted to a monitored bed and she still states she is feeling miserable because she has aches and pains all over as well as she is short of breath and feeling somewhat unhappy about being chronically sick. REVIEW OF SYSTEMS: LUNGS: Increasing shortness of breath. GASTROINTESTINAL: No nausea, vomiting, diarrhea, constipation. CARDIOVASCULAR: No chest pains or palpitations. ALLERGIES: Known allergies to HYDROXYZINE, MORPHINE AND LATEX. FAMILY HISTORY: Noncontributory. HOME MEDICATIONS: Vicodin, Daliresp, lisinopril, furosemide, Lexapro, Plavix, insulin, hydralazine, clonidine, Coreg, Colace, DuoNeb. PHYSICAL EXAMINATION: GENERAL: Alert, oriented, morbidly obese, in looking somewhat uncomfortable, but in no distress. VITAL SIGNS: Blood pressure 154/64, heart rate of 84 beats per minute, breathing 22 times per minute, 98 degrees Fahrenheit, decreased breath sounds with some expiratory wheezing along with cough. LABORATORY DATA: Blood cultures are turning out to be positive for Gram-positive cocci in pairs and chains. No leukocytosis. Hemoglobin 9.1. Normal serum electrolytes with potassium level has become elevated to 5.4 today, which was normal yesterday. Albumin low at 2.1. DIAGNOSTIC DATA: Chest x-ray showed opacity in the right lung. [place], [place] PATIENT HISTORY AND PHYSICAL EXAM NAME: DESTINY MARADIAGA [facility] #: [id number] UNIT #: [id number] ROOM: [facility] DOCTOR: CANDICE KUHN MD BIRTHDATE: [birth year] IMPRESSION: 1. The patient has acute exacerbation of underlying chronic obstructive pulmonary disease with acute over chronic respiratory failure is being treated with DuoNebs, oxygen and vancomycin. 2. Right lung opacity to be evaluated by station tender, Dr. Subramanian for possible pneumonia. 3. Uncontrolled type 2 diabetes mellitus with morbid obesity. Blood sugars ranging between 89-328. 4. Chronic pain syndrome. The patient's home medication of Vicodin was continued on her request. 5. Positive blood cultures. We will wait for final culture results. Infectious disease specialist has been consulted. 6. Chronic systolic type congestive heart failure, compensated. 7. Morbid obesity with a BMI of 50.3. The patient to work with dietary. 8. Advanced adult failure to thrive. The patient worked with physical therapy. 9. Moderate to severe protein-calorie malnutrition and adult failure to thrive. We will take bedsore precautions and also try to improve her nutrition and she worked with physical therapy. One hour spent on patient's management. CANDICE KUHN MD CM:HISPHYS:PATIENT HISTORY AND PHYSICAL EXAMINATION [id number] CANDICE KUHN MD 09/17/17 1624 interface
--- NOTE | ~2017-09-16 | EKG ---
[place], [place] ELECTROCARDIOGRAM REPORT NAME: DESTINY MARADIAGA UNIT #: [id number] ROOM: 403 DOCTOR: KATIE SEGAL MD,ROGER BIRTHDATE: [birth year] DOS: 09/16/2017 ELECTROCARDIOGRAM REPORT TIME: At 4:23 p.m. The electrocardiogram of the patient shows a normal sinus rhythm. Heart rate of 95 beats per minute. Short ID interval was noted. There were no changes of arrhythmias or other abnormalities. ROGER IWLSON MD CM:EKGRPT:ELECTROCARDIOGRAM REPORT [phone] ROGER SEGAL MD
[~2017-09-16 15:58] MED LIST changes: +'CLONIDINE0.1 MG PO; +CARVEDILOL3.125 MG PO; +FUROSEMIDE20 M1 PO; +HYDRALAZINE HYD50 MG PO; +LISINOPRIL2.5 MG PO; +MULTIPLE VITAM1 EAC2 PO; -MULTIPLE VITAMI1 CAP PO; +NORCO 10-325 T1 EACH PO; +NORCO 5/325 PO; +POTASSIUM CHLO20 ME4 PO; +VITAMIN D-32000 UNI1 PO
[2017-09-16 16:10] VITALS: BP 152/60
[2017-09-16 17:05] LABS: BASO % 0.2 % (0.0-1.0); EOS # 0.1 10*3/uL (0.0-0.4); EOS % 1.9 % (1.0-4.0); HEMATOCRIT 30.3 % (37.0-47.0); HEMOGLOBIN 9.2 g/dl (12.0-16.0); LYMPH # 0.8 10*3/uL (1.3-4.4); MEAN CELL VOLUME 94.7 fl (81.0-99.0); MEAN CORPUSCULAR HGB 28.8 pg (27.0-31.0); MEAN CORPUSCULAR HGB CONC 30.4 g/dl (33.0-37.0); MEAN PLATELET VOLUME 9.3 fl (9.6-12.3); MONO # 0.4 10*3/uL (0.1-1.0); MONO % 7.5 % (3.0-9.0); NEUT # 3.6 10*3/uL (2.3-7.9); PLATELET COUNT AUTOMATED 184 10*3/uL (130-400); RED CELL DISTRI WIDTH 14.1 % (0-14.5); WHITE BLOOD COUNT 4.8 10*3/uL (4.8-10.8)
[2017-09-16 17:20] LABS: ALBUMIN 2.1 gm/dl (3.1-4.5); ALKALINE PHOSPHATASE 77 U/L (45-117); BUN 13 mg/dl (7-24); CHLORIDE 102 mmol/L (98-107); CREATININE 0.74 mg/dL (0.55-1.02); POTASSIUM 4.5 mmol/L (3.5-5.1); SGOT/AST 11 IU/L (3-35); SGPT/ALT 14 U/L (12-78); SODIUM 139 mmol/L (136-145); TOTAL PROTEIN 6.3 gm/dL (6.4-8.2)
[2017-09-16 17:22] LABS: TROPONIN I 0.024 ng/ml (<0.045)
[2017-09-16 17:30] LABS: ACT PARTIAL THROMBO TIME 25.5 SECONDS (20.8-31.5); INTERNATIONAL NORM RATIO 0.9 (2.0-3.5)
[2017-09-16 18:05] VITALS: BP 178/72
--- NOTE | 2017-09-16 18:06 | NUR ---
DECREASE IN PAIN AFTER VICODIN ADMIN. REPORT CALLED TO LIZETTE DELANEY . PT STABLE AND READY FOR TRANSPORT TO INPATIENT ROOM.
[2017-09-16 18:07] VITALS: BP 162/74
--- NOTE | 2017-09-16 18:15 | NUR ---
A 67, admitted to , under the services of Dr. BAM MARIE,CANDICE Menon with a diagnosis of COPD W/ ACUTE EXACERBATION, HTN. Chief complaint is SOB. Patient arrived via bed from ER. Monitor applied. Initial assessment completed. Vital signs taken and recorded. DR. BAM MARIE,CANDICE Menon notified of admission to the unit. Orders received. See assessment for past medical history, medications and allergies. Patient and/or family oriented to unit. [facility] visitation policy reviewed. Clothing/patient valuable form completed. JANUARY REEVES
--- NOTE | 2017-09-16 19:26 | NUR ---
DR WILSON MADE AWARE OF NEW CONSULT. ORDER RECEIVED FOR BIPAP HS.
[2017-09-16 20:00] VITALS: BP 153/67
--- NOTE | 2017-09-16 20:00 | NUR ---
ASSUMED CARE OF PATIENT. ASSESSMENT COMPLETE. RESTING IN BED. NO VOICED COMPLAINTS. CALL LIGHT IN REACH. WILL CONTINUE TO MONITOR.
--- NOTE | 2017-09-16 21:57 | NUR ---
PT REFUSING TO BE PLACED ON BIPAP AT THIS TIME. WILL TRY AGAIN LATER.
[2017-09-17] VITALS: BP 157/62
--- NOTE | 2017-09-17 00:41 | NUR ---
PT TEACHING PROVIDED ON IMPORTANCE OF BIPAP. PT STATES SHE WILL ALLOW RESPIRATORY TO PLACE HER ON BIPAP AFTER HER NEXT BREATHING TREATMENT.
--- NOTE | 2017-09-17 00:41 | NUR ---
MEDICATED WITH PRN NORCO PER PT REQUEST FOR C/O PAIN "MY BACK, MY LEGS, MY FEET, MY THROAT, MY CHEST" RATES 04/17.
--- NOTE | 2017-09-17 01:34 | NUR ---
EARLIER NORCO APPEARS TO BE EFFECTIVE, PT SLEEPING. RESP EASY AND NONLABORED. NO DISTRESS NOTED. CALL LIGHT IN REACH. WILL CONTINUE TO MONITOR.
--- NOTE | 2017-09-17 02:30 | NUR ---
RESPIRATORY AT BEDSIDE. PT CONTINUES TO REFUSE BIPAP
--- NOTE | 2017-09-17 05:39 | NUR ---
CALLED AND MADE DR KUHN AWARE OF CRITICAL: POSITIVE BLOOD CULTURES, GPC IN PAIR. ORDER RECEIVED FOR INFECTIOUS DISEASE CONSULT.
--- NOTE | 2017-09-17 05:43 | NUR ---
CALLED DR SILVA'S ANSWERING SERVICE REGARDING NEW CONSULT.
--- NOTE | 2017-09-17 05:51 | NUR ---
SPOKE TO DR GIPSON. MADE AWARE OF BLOOD CULTURES. ORDER RECEIVED FOR 2G VANC IV X1 AND THEN DOSE PER PHARMACY. MADE HER AWARE PT HAS NO IV ACCESS AND IS FOR PICC PLACEMENT BUT PICC MAY NOT BE PLACED UNTIL TOMORROW. SHE STATES THAT PT SHOULD NOT BE GETTING A PICC LINE PLACED D/T BLLOD CULTURES THAT SHE SHOULD GET A CENTRAL LINE.
--- NOTE | 2017-09-17 05:55 | NUR ---
DR GIPSON CALLED BACK AND STATES TO ORDER REPEAT BLOOD CULTURES X2 BEFORE GIVING ANY ANTIBIOTICS
--- NOTE | 2017-09-17 05:56 | NUR ---
ATTEMPTED TO CALL DR RUIZ FOR CONSULT REGARDING CENTRAL LINE PLACEMENT, NO ANSWER
[2017-09-17 06:18] LABS: HEMOGLOBIN 9.1 g/dl (12.0-16.0); MEAN CELL VOLUME 92.9 fl (81.0-99.0); MEAN CORPUSCULAR HGB 28.2 pg (27.0-31.0); MEAN CORPUSCULAR HGB CONC 30.3 g/dl (33.0-37.0); MEAN PLATELET VOLUME 9.6 fl (9.6-12.3); PLATELET COUNT AUTOMATED 189 10*3/uL (130-400); RED BLOOD COUNT 3.23 10*6/uL (4.10-5.10); RED CELL DISTRI WIDTH 13.8 % (0-14.5); WHITE BLOOD COUNT 4.5 10*3/uL (4.8-10.8)
[2017-09-17 06:25] LABS: BUN 19 mg/dl (7-24); CHLORIDE 99 mmol/L (98-107); CREATININE 0.89 mg/dL (0.55-1.02); POTASSIUM 5.4 mmol/L (3.5-5.1); SODIUM 133 mmol/L (136-145)
--- NOTE | 2017-09-17 06:31 | NUR ---
CALLED AND SPOKE TO DR RUIZ REGARDING CENTRAL LINE PLACEMENT. HE STATED THAT THE RESIDENTS SHOULD BE ABLE TO PLACE CENTRAL LINE TODAY TO GIVE THEM A CALL AND IF THEY ARE UNABLE TO DO IT HE WILL COME IN TO PLACE LINE. CALLED AND SPOKE TO DR DE JESUS. HE STATED THAT IN HOUSE RESIDENT WILL BE ON AT 7AM AND TO GIVE THEM A CALL THEN AND IF THEY DO NOT ANSWER TO GIVE HIM A CALL BACK.
--- NOTE | 2017-09-17 07:06 | NUR ---
CALLED AND SPOKE TO DR RAM REGARDING CENTRAL LINE PLACEMENT. HE STATES HE WILL PLACE A CENTRAL LINE TODAY.
--- NOTE | 2017-09-17 07:10 | NUR ---
CALLED DR RUIZ TO UPDATE HIM THAT RESIDENTS WILL PLACE CENTRAL LINE. HE STATES THAT HE RECOMMENDS PT HAVE PICC LINE VS CENTRAL LINE
[2017-09-17 07:13] LABS: PLATELET SUFFICIENCY NORMAL (NORMAL); TOTAL CELLS COUNTED 100 #CELLS
--- NOTE | 2017-09-17 07:24 | NUR ---
CALLED DR JOYNER BACK REGARDING DR RUIZ'S RECOMMENDATIONS. SHE STATES TO CALL DR KUHN AND LET HIM MAKE THE DECISION. DR KUHN STATES WHICHEVER LINE CAN BE PLACED FIRST WILL BE OKAY. CALLED AND MADE DR RAM AWARE.
--- NOTE | 2017-09-17 07:26 | NUR ---
DR MATHUR CALLED BACK WITH ORDER FOR PO ABX UNTIL IV ABX CAN BE STARTED
[2017-09-17 08:00] VITALS: BP 166/58
--- NOTE | 2017-09-17 08:10 | NUR ---
CALLED DR. KUHN MADE AWARE PT WANTS PAIN MEDICATION MORE FREQUENT. ALSO REQUESTING SOMETHING FOR ANXIETY TO HELP WITH CENTRAL LINE INSERTION. ORDERS TAKEN AND REVIEWED.
--- NOTE | 2017-09-17 08:30 | NUR ---
MEDICATED WITH NORCO PER PRN ORDER FOR C/O PAIN ALL OVER RATES PAIN 8 ON PAIN SCALE 0-10. SEE EMAR. TOLERATED ROUTINE MEDS WITH NO PROBLEM. PT REFUSES TO TAKE ATIVAN AT THIS TIME WANTS TO WAIT UNTIL AFTER SHE EATS. CALL LIGHT IN REACH.
--- NOTE | 2017-09-17 09:20 | NUR ---
MEDICATED WITH ATIVAN PO FOR ANXIETY BEFORE CENTRAL LINE INSERTION. CALL LIGHT IN REACH. DR. ROSALES MADE AWARE PT GIVEN ATIVAN AT THIS TIME.
--- NOTE | 2017-09-17 10:15 | NUR ---
PT RESTING IN BED. STATES PAIN MEDICATION JUST TAKES EDGE OFF OF PAIN. CALL LIGHT IN REACH.
--- NOTE | 2017-09-17 11:05 | NUR ---
PER DR. REDMOND UNABLE TO DO CENTRAL LINE BECAUSE PT UNABLE TO LAY FLAT IN BED. CALLED DR. RUIZ TO MAKE HIM AWARE. HE STATES SHE NEED A PICC LINE, HE CANT DO CENTRAL LINE UNTIL TOMORROW. MADE AWARE DR. TAMEZ WANTS CENTRAL LINE. CALLED DR. TAMEZ AND LEFT MESSAGE TO CALL.
--- NOTE | 2017-09-17 11:20 | NUR ---
DR. TAMEZ CALLED SHE WILL NOT SIGN FOR PT TO HAVE A PICC LINE. SHE STATES ITS UP TO OTHER DOCOTRS BUT PER HER SHE NEEDS A CENTRAL LINE AND SHE PUT HER ON ZYVOX UNTIL SHE GETS A LINE.
--- NOTE | 2017-09-17 11:39 | NUR ---
IV started in right upper arm with #22 protective cath after 2 attempts. Site prepped with Chloroprep. Sterile dressing applied. Patient tolerated procedure well. HALI HERNANDEZ
--- NOTE | 2017-09-17 11:45 | NUR ---
PT RESTING IN BED. [id number], SEE EMAR. CALL LIGHT IN REACH.
--- NOTE | 2017-09-17 11:49 | NUR ---
DR. RUIZ CALLED MADE AWARE NURSE STARTED A PERIPHERAL IV SITE AND HE WILL PUT ORDER IN KEEP NPO AFTER MIDNIGHT AND SEE HER TOMORROW.
[2017-09-17 12:00] VITALS: BP 154/64
--- NOTE | 2017-09-17 14:18 | NUR ---
PT C/O BACK AND CHEST PAIN FROM COUGHING. RATES PAIN 8 ON PAIN SCALE 0-10. MEDICATED WITH NORCO PO PER PRN ORDER, SEE EMAR. CALL LIGHT IN REACH.
--- NOTE | 2017-09-17 14:59 | NUR ---
PT RESTING IN BED WITH EYES CLOSED. RESP-EASY AND REGULAR. OXYGEN IN USE. MEDICATION SEEMS TO BE EFFECTIVE. CALL LIGHT IN REACH.
[2017-09-17 16:00] VITALS: BP 165/59
--- NOTE | 2017-09-17 16:00 | NUR ---
RESTING IN BED. BSG-168, SEE EMAR. NO C/O AT THIS TIME. OXYGEN IN USE. CALL LIGHT IN REACH. SEE SHIFT ASESSMENT.
[2017-09-17 20:00] VITALS: BP 151/56
--- NOTE | 2017-09-17 20:14 | NUR ---
MEDICATED WITH NORCO FOR C/O CHEST PAIN FROM COUGHING, PAIN IN HER HANDS, FEET & BACK WHICH SHE RATES A 7/10.
--- NOTE | 2017-09-17 22:46 | NUR ---
pt refused bipap at this time
[2017-09-18] VITALS: BP 158/60
--- NOTE | 2017-09-18 | NUR ---
VOICES NO C/O AT THIS TIME; NORCO GIVEN EARLIER APPARENTLY EFFECTIVE.
--- NOTE | 2017-09-18 02:06 | NUR ---
MEDICATED WITH PRN NORCO FOR C/O BACK, LEG, FEET, ARM, AND CHEST PAIN. RATES 05/18.
--- NOTE | 2017-09-18 03:30 | NUR ---
PT. SLEEPING; NORCO GIVEN EARLIER APPARENTLY EFFECTIVE.
[2017-09-18 07:21] LABS: BUN 24 mg/dl (7-24); CHLORIDE 99 mmol/L (98-107); CREATININE 0.92 mg/dL (0.55-1.02); SODIUM 135 mmol/L (136-145)
--- NOTE | 2017-09-18 07:30 | NUR ---
DR. RUIZ CALLED IN & WILL SEE PT. THIS MORNING. PT. TO HAVE PICC PLACEMENT TODAY.
--- NOTE | 2017-09-18 07:30 | NUR ---
PT'S BLOOD SUGAR 105; PT. STATES THAT HER BLOOD SUGAR USUALLY RUNS 180. C/O THAT HER BLOOD SUGAR IS GOING TO DROP. GAVE HER SOME ORANGE JUICE WITH HER MEDICATION.
[2017-09-18 08:00] VITALS: BP 148/62
--- NOTE | 2017-09-18 08:00 | NUR ---
PT C/O BACK PAIN, CHEST PAIN FROM COUGHING, SORE THROAT, LEGS AND FEET AND HAND PAIN, RATES PAIN 7 ON PAIN SCALE 0-10. MEDICATED WITH NORCO PO PER PRN ORDER, SEE EMAR. CALL LIGHT INREACH. SEE SHIFT ASSESSMENT.
--- NOTE | 2017-09-18 08:30 | NUR ---
MAILER VS. CAME FROM [facility] AND PLANS TO RETURN. WILL CHECK WITH JENN AT [facility] TO SEE IF PRECERT NEEDS DONE AGAIN.
--- NOTE | 2017-09-18 09:30 | NUR ---
TRIED TO CALL DR. KUHN WITH BC RESULTS WITH NO ANSWER.
--- NOTE | 2017-09-18 09:39 | NUR ---
TRIED TO CALL DR. KUHN WITH RESULTS NO ANSWER.
--- NOTE | 2017-09-18 09:39 | NUR ---
SPOKE WITH DR. RUIZ REGARDING CENTRAL LINE OR SURGERY CALLED [facility] PICC LINE PLACEMENT. HE WANTS PICC LINE.
--- NOTE | 2017-09-18 09:39 | NUR ---
PHYSICAL THERAPY PAtient requested no PT this date. Reports she is dyspneic at rest and unable to attempt. Will check on patient at a later date. Thank you for this referral. Clotilde Witt,PT
--- NOTE | 2017-09-18 09:45 | NUR ---
Occupational Therapy evaluation offered to patient this date. Patient pleasantly declined at this time. OTR will attempt at another time. Thank you for this referral. Monserrat Lugo OTR/Yuan
--- NOTE | 2017-09-18 10:02 | NUR ---
PT RESTING IN BED ORDERED BREAKFAST. BSG-116, SEE EMAR. OXYGEN IN USE. NO C/O AT THIS TIME. CALL LIGHT IN REACH.
[2017-09-18 12:00] VITALS: BP 121/50
--- NOTE | 2017-09-18 12:00 | NUR ---
LYING IN BED. RESP-EASY AND REGULAR. OXYGEN IN USE. TOLERATING IV MED WITH NO PROBLEM. CALL LIGHT IN REACH.
--- NOTE | 2017-09-18 12:29 | NUR ---
This nurse was asked to evaluate patients right buttocks. Right buttocks wound healed. No open areas noted. Area measuring 0.9cm x 0.4cm x 0 is red and balanchable. Patient reguesting a preventive dressing so that it doesn't reopen she states she doesn't have very good luck.
--- NOTE | 2017-09-18 15:00 | NUR ---
Patient comes from [facility] and can return but requires precert with PT and OT eval/notes. PT and OT therapists have attempted evals, but patient has refused. Will fax when available.
--- NOTE | 2017-09-18 15:25 | NUR ---
CALLED DR. KUHN MADE AWARE PT HEARTRATE HAS BEEN SINUS IN 140-150 ON AND OFF TODAY. AT TIMES SHE WAS RECEIVING BREATHING TX.
--- NOTE | 2017-09-18 15:45 | NUR ---
CALLED DR. KUHN MADE AWARE PT VERY ANXIOUS FEELS SHORT OF BREATH AND HR 140'S. BREATHING TX GIVEN PRIOR. ORDERS TAKEN AND REVIEWED.
[2017-09-18 16:00] VITALS: BP 126/52
--- NOTE | 2017-09-18 16:05 | NUR ---
MEDICATED WITH BUSPAR PO PER DR. HERNANDEZ, SEE EMAR. FOR ANXIETY. CALL LIGHT IN REACH. OXYGEN IN USE. PULSE OX 99-100% 2 1/2 LITERS. SAT WITH PT FOR AWHILE TO CALM HER PER HER REQUEST. CALL LIGHT IN REACH.
--- NOTE | 2017-09-18 17:17 | NUR ---
DR. KUHN IN TO SEE PT.
--- NOTE | 2017-09-18 18:14 | NUR ---
PT RESTING IN BED. HR-90-LOW 100'S. STATES SHE STILL FEELS ANXIOUS. OXYGEN IN USE. CALL LIGHT IN REACH.
--- NOTE | 2017-09-18 18:20 | NUR ---
PT RESTING IN BED. C/O ANXIETY. MEDICATED WITH ATIVAN PO PER PRN ORDER, SEE EMAR. OXYGEN IN USE. CALL LIGHT IN REACH.
[2017-09-18 20:00] VITALS: BP 137/57
--- NOTE | 2017-09-18 21:41 | NUR ---
PATIENT MEDICATED WITH PO NORCO PER PRN ORDER FOR C/O BACK, NECK, CHEST PAIN FROM COUGHING, AND PAIN "EVERYWHERE." WILL MONITOR EFFECTIVENESS, CALL LIGHT LEFT IN REACH.
--- NOTE | 2017-09-18 22:34 | NUR ---
PATIENT STATES EARLIER NORCO WAS EFFECTIVE. PATIENT WAS ASSISTED UP [place] [facility] [place] HAD ONE LARGE BM. PATIENT ALSO HAD AN ADDITIONAL EPISODE OF BOWEL INCONTINENCE. PATIENT CLEANED UP AT THIS TIME. NEW BED LINENS/GOWN PROVIDED. PATIENT ENCOURAGED TO LAY ON LEFT SIDE TO REDUCE PRESSURE ON RIGHT SIDE. PATIENT REFUSES SAYING, "MAYBE LATER." PATIENT EDUCATED ON IMPORTANCE OF TURNING Q2H AND PRN. PATIENT VERBALIZES UNDERSTANDING BUT STILL REFUSES TO TURN. ENCOURAGED TO COUGH/DEEP BREATHE WELL AND TO EXPECTORATE SPUTUM. WILL MONITOR PATIENT. CALL LIGHT LEFT IN REACH.
[2017-09-19] VITALS (9 sets, daily range): BP systolic 122–191; BP diastolic 40–83
--- NOTE | 2017-09-19 02:35 | NUR ---
PATIENT MEDICATED WITH PO NORCO PER PRN ORDER FOR C/O "ALL OVER" PAIN. PATIENT STATES HER BACK HURTS, HER CHEST HURTS FROM COUGHING, AND JUST EVERYTHING HURTS. PATIENT ENCOURAGED TO TURN TO L SIDE AT THIS TIME, BUT REFUSES. PATIENT STATES SHE CANNOT LAY FLAT ON HER BACK AND IT HURTS TOO MUCH TO TURN TO OTHER SIDE. WILL CONTINUE TO ENCOURAGED PATIENT TO TURN.
--- NOTE | 2017-09-19 03:16 | NUR ---
EARLIER MEDICATION APPEARS EFFECTIVE. PATIENT ASLEEP IN BED. NO S/S OF DISTRESS NOTED. ON 3L O2 VIA NC. WILL MONITOR. CALL LIGHT IN REACH.
--- NOTE | 2017-09-19 05:17 | NUR ---
[employer] CALLED, PATIENT HAD 5 BEAT RUN OF V-TACH. WENT TO CHECK ON PATIENT AT THIS TIME. PATIENT ASYMPTOMATIC. MADE AWARE. INSTRUCTED TO ORDER BMP AND MAGNESIUM LEVEL. PATIENT CONTINUES TO HAVE PVCs AT THIS TIME. WILL CONTINUE TO MONITOR. CALL LIGHT LEFT IN REACH.
--- NOTE | 2017-09-19 07:43 | NUR ---
BSG-335. PT PLACED ON BIPAP IN ROOM. BLOOD GASES DRAWN.
--- NOTE | 2017-09-19 07:45 | NUR ---
PT VERY LETHARGIC AND SWEATY, DOES AROUSE WITH VERBAL STIMULI, HAS BLOWING RESPIRATIONS, RAPID RESPONSE CALLED, PT IS IN NSR RHYTHM ON THE MONITOR IN THE 'S, DR. BRANDT CALLED-PT ORDERED TO [facility], ABG'S DRAWN BY PHYSICIAN, ATTEMPTED TO CALL HAVEN THE PATIENT'S DAUGHTER ON THE PHONE ABOUT CHANGE IN STATUS, MESSAGE LEFT WHIT HERNANDEZ [facility]
--- NOTE | 2017-09-19 07:48 | NUR ---
DR. WILSON CALLED ORDER FOR ABG.
--- NOTE | 2017-09-19 07:58 | NUR ---
PT TRANSFERRED BACK TO [facility]U, REPORT FORWARDED WHIT GARSIA
[2017-09-19 08:02] LABS: BASO % 0.5 % (0.0-1.0); EOS # 0.1 10*3/uL (0.0-0.4); EOS % 1.4 % (1.0-4.0); HEMATOCRIT 34.2 % (37.0-47.0); HEMOGLOBIN 10.1 g/dl (12.0-16.0); LYMPH # 0.4 10*3/uL (1.3-4.4); MEAN CELL VOLUME 97.2 fl (81.0-99.0); MEAN CORPUSCULAR HGB 28.7 pg (27.0-31.0); MEAN CORPUSCULAR HGB CONC 29.5 g/dl (33.0-37.0); MEAN PLATELET VOLUME 9.2 fl (9.6-12.3); MONO # 0.3 10*3/uL (0.1-1.0); MONO % 5.4 % (3.0-9.0); NEUT # 5.3 10*3/uL (2.3-7.9); PLATELET COUNT AUTOMATED 265 10*3/uL (130-400); RED BLOOD COUNT 3.52 10*6/uL (4.10-5.10); RED CELL DISTRI WIDTH 14.4 % (0-14.5); WHITE BLOOD COUNT 6.3 10*3/uL (4.8-10.8)
--- NOTE | 2017-09-19 08:03 | NUR ---
EKG IN ICU FOR EKG, ANOTHER SET BLOOD GASES OBTAINED.
[2017-09-19 08:05] LABS: ABG HCO3 32.1 mmol/l (22-26); ABG O2 SATURATION 86.9 % (95-97); ARTERIAL BLOOD GAS PO2 62.5 mmHg (80-90)
[2017-09-19 08:06] LABS: CREATININE 1.15 mg/dL (0.55-1.02); POTASSIUM 5.7 mmol/L (3.5-5.1)
[2017-09-19 08:09] LABS: ARTERIAL BLOOD GAS PCO2 98.8 mmHg (35-45); ARTERIAL BLOOD GAS PH 7.135 (7.35-7.45)
--- NOTE | 2017-09-19 08:15 | NUR ---
DR. BRANDT IN ICU TO SEE PT.
[2017-09-19 08:17] LABS: ABG BASE EXCESS 1.1 mmol/L (-2.0-2.0); ABG HCO3 30.6 mmol/l (22-26); ABG O2 SATURATION 95.2 % (95-97); ARTERIAL BLOOD GAS PO2 76.9 mmHg (80-90)
[2017-09-19 08:20] LABS: ARTERIAL BLOOD GAS PCO2 83.6 mmHg (35-45); ARTERIAL BLOOD GAS PH 7.186 (7.35-7.45)
[2017-09-19 08:25] LABS: ALBUMIN 2.5 gm/dl (3.1-4.5); CREATININE 1.15 mg/dL (0.55-1.02); POTASSIUM 5.8 mmol/L (3.5-5.1); TOTAL PROTEIN 6.5 gm/dL (6.4-8.2); TROPONIN I 0.038 ng/ml (<0.045)
--- NOTE | 2017-09-19 08:30 | NUR ---
REPORT GIVEN TO SILAS.
--- NOTE | 2017-09-19 08:33 | NUR ---
PHYSICAL THERAPY PAtient moved to ICCU, will require new PT orders when medically appropriate. Thank you . Clotilde Perez,PT
--- NOTE | 2017-09-19 09:09 | NUR ---
PT WAS A RAPID RESPONSE ON 4E FOR INCREASED LETHARGY. ABG'S WERE DONE AND REPEATED. ANESTHESIA INTUBATED PT, PLACED ON VENTILATOR. LEFT NARE NGT WAS PLACED. CXR WAS DONE. DR WILSON HAS VISITED. SAID TO TELL DR KUHN PT NEEDS TRANSFERRED OUT FOR VAT'S PROCEDURE AND THIS HAS BEEN DONE. NEW IV SITE WAS OBTAINED LEFT HAND WITH #24. OR NURSE HERE NOW TO PLACE PICC LINE. UA/REFLEX TO CULTURE AND SPUTUM SPECIMENS OBTAINED. FAMILY HAS CALLED IN AND ARE AWARE OF PT'S CONDITION. DIPRIVAN DRIP AT 20MCG/KG/MIN. SEE ALL APPROPRIATE INTERVENTIONS.
[2017-09-19 10:02] LABS: BILIRUBIN NEGATIVE (NEGATIVE); BLOOD NEGATIVE (NEGATIVE); CLARITY SL CLOUDY (CLEAR); COLOR YELLOW (YELLOW); GLUCOSE TRACE (NEGATIVE); KETONE NEGATIVE (NEGATIVE); LEUKO ESTERASE NEGATIVE (NEGATIVE); NITRITE NEGATIVE (NEGATIVE); PH 5.5 (5.0-9.0); SPECIFIC GRAVITY 1.025 (1.005-1.030); UROBILINOGEN 0.2 E.U./dl (0.2-1.0)
[2017-09-19 10:58] LABS: BACTERIA 2+; CALCIUM OXALATE CRYSTALS 1+; RBC 16-20 rbc/hpf (0-2)
[2017-09-19 11:00] LABS: WAXY CAST 0-2
--- NOTE | 2017-09-19 11:34 | NUR ---
1000-ATTEMPTED TO INSERT PICC LINE USING STERILE TECHNIQUE RIGHT ARM WITHOUT SUCCESS.
[2017-09-19 11:45] LABS: ABG BASE EXCESS 3.9 mmol/L (-2.0-2.0); ABG HCO3 29.9 mmol/l (22-26); ABG O2 SATURATION 99.2 % (95-97); ARTERIAL BLOOD GAS PCO2 56.3 mmHg (35-45); ARTERIAL BLOOD GAS PH 7.344 (7.35-7.45)
--- NOTE | 2017-09-19 11:57 | NUR ---
ABG'S WERE DRAWN BY LAYLA FROM [facility] AND THESE WERE CALLED TO DR WILSON. [facility] HAS BEEN CALLED AND PROVIDED WITH DR KUHN'S CELL PHONE NUMBER. [employer] HAVE BEEN FAXED. FAMILY IN AND UPDATED ON PT'S CONDITION. DIPRIVAN HAS BEEN TITRATED TO 40MCG/KG AND IS ADEQUATELY SEDATED.
--- NOTE | 2017-09-19 14:53 | NUR ---
A BED IS AVAILABLE AT [facility] . E724-1 WITH A NURSE TO NURSE # OF [phone]. THEY ARE SENDING THEIR MOBILE INTENSIVE CARE FOR HER. FAMILY AWARE BED AVAILABLE AND AWAITNG THEIR AMBULANCE FOR TRANSPORT. THEY HAVE GATHERED HER BELONGINGS.
--- NOTE | 2017-09-19 15:41 | NUR ---
[facility] HERE. REPORT TO THEM. FAMILY TOOK ALL BELONGINGS WITH THEM. PT DISCHARGED IN STABLE CONDITION WITH THE [facility].
--- NOTE | 2017-09-19 15:42 | NUR ---
DR GUEVARA WAS NOT CALLED WITH CONSULT THE TRANSFER WAS IMMINENT.
--- NOTE | 2017-09-19 15:54 | NUR ---
REPORT TO RAMÓN AT [facility].
== END 2017-09-19 15:44 | disposition short-term general hospital (02) | DRG 208 ==
LOC: ED 15:58 → 4E 17:41 → EDHOLD 17:41 → ICCU 17:41 → 4E 17:47 → ICCU 09-19 08:02
PROVIDERS: Internal Medicine; Internal Medicine Critical Care Medicine; Nurse Practitioner Family; ADMIT Internal Medicine
PROC: 02HV33Z Insertion of Infusion Device into Superior Vena Cava, Percutaneous Approach (ICD-10-PCS; principal; 2017-09-19)
PROC: 5A1935Z Respiratory Ventilation, Less than 24 Consecutive Hours (ICD-10-PCS; 2017-09-19)
PROC: 0BH17EZ Insertion of Endotracheal Airway into Trachea, Via Natural or Artificial Opening (ICD-10-PCS; 2017-09-19)
DX: J96.21 Acute and chronic respiratory failure with hypoxia (principal); E43 Unspecified severe protein-calorie malnutrition; J18.1 Lobar pneumonia, unspecified organism; I11.0 Hypertensive heart disease with heart failure; E11.51 Type 2 diabetes mellitus with diabetic peripheral angiopathy without gangrene; I42.9 Cardiomyopathy, unspecified; R78.81 Bacteremia; I50.22 Chronic systolic (congestive) heart failure; Z68.43 Body mass index [BMI] 50.0-59.9, adult; E11.65 Type 2 diabetes mellitus with hyperglycemia; E66.2 Morbid (severe) obesity with alveolar hypoventilation; J44.1 Chronic obstructive pulmonary disease with (acute) exacerbation; J98.11 Atelectasis; J44.0 Chronic obstructive pulmonary disease with (acute) lower respiratory infection; F33.0 Major depressive disorder, recurrent, mild; B96.89 Other specified bacterial agents as the cause of diseases classified elsewhere; J96.22 Acute and chronic respiratory failure with hypercapnia; D64.9 Anemia, unspecified; Z96.642 Presence of left artificial hip joint; R62.7 Adult failure to thrive; G89.4 Chronic pain syndrome; F41.1 Generalized anxiety disorder; R59.1 Generalized enlarged lymph nodes; I25.10 Atherosclerotic heart disease of native coronary artery without angina pectoris; K21.9 Gastro-esophageal reflux disease without esophagitis; E78.5 Hyperlipidemia, unspecified; E87.5 Hyperkalemia; E86.9 Volume depletion, unspecified; D72.818 Other decreased white blood cell count; Z99.81 Dependence on supplemental oxygen; Z88.8 Allergy status to other drugs, medicaments and biological substances; Z88.6 Allergy status to analgesic agent; Z91.040 Latex allergy status; Z79.899 Other long term (current) drug therapy; Z90.49 Acquired absence of other specified parts of digestive tract; Z98.51 Tubal ligation status; Z95.1 Presence of aortocoronary bypass graft; Z83.3 Family history of diabetes mellitus; Z82.49 Family history of ischemic heart disease and other diseases of the circulatory system